=== PATIENT | male | born 1965 | race Caucasian/White ===

== ENCOUNTER → 2016-10-22 | Outpatient (REF) | payer OTHER ==
[~2016-10-22] MED LIST: ALPR0.5T3; ASPI81TA45; CORE25TA; GEMF600T; GLUC1000; INSUHUMDS SC; INSURSD SC; IRON65TA PO; LASI40TA; LISI10TA4; Levamir; MAGN64TASA PO; NEXI40GR; NITR0.4S; NOVOLOG100 MG/ML; PLAV75TA2; POTA10CA2; ROSU10TA; SAW160CA3 PO; STOO100C PO; TRIMETHOPRIM PO
[2016-10-22 14:17] LABS: BASO % 0.5 % (0.0-1.0); EOS # 0.2 K/mm3 (0.0-0.50); EOS % 2.6 % (0.0-3.0); LARGE UNSTAINED CELL # 0.1 K/mm3 (0.0-0.4); LARGE UNSTAINED CELL % 1.9 % (0.0-4.0); LYMPH # 0.9 K/mm3 (1.5-4.5); LYMPH % 16.6 % (24.0-44.0); MEAN CORPUSCULAR HEMOGLOBIN 28.5 pg (27.0-33.0); MEAN CORPUSCULAR HGB CONC 32.5 g/dl (32.0-36.5); MEAN CORPUSCULAR VOLUME 87.7 fl (80.0-96.0); MONO # 0.3 K/mm3 (0.0-0.8); MONO % 5.5 % (0.0-5.0); NEUTROPHILS # 4.1 K/mm3 (1.8-7.7); NEUTROPHILS % 72.8 % (36.0-66.0); PLATELET COUNT, AUTOMATED 149 k/mm3 (150-450); RED CELL DISTRIBUTION WIDTH 13.7 % (11.5-14.5); WHITE BLOOD COUNT 5.7 K/mm3 (4.0-10.0)
[2016-10-22 14:18] LABS: ALBUMIN 3.4 GM/DL (3.2-5.2); ALBUMIN/GLOBULIN RATIO 0.85 (1.00-1.93); BILIRUBIN,TOTAL 0.4 MG/DL (0.2-1.0); CALCIUM LEVEL 8.6 MG/DL (8.5-10.1); CREATININE FOR GFR 1.94 MG/DL (0.70-1.30); GLOMERULAR FILTRATION RATE 39.4 (>60); POTASSIUM SERUM 4.3 MEQ/L (3.5-5.1); TOTAL PROTEIN 7.4 GM/DL (6.4-8.2)
[2016-10-25 00:06] LABS: 5HIAA 24HR URINE 16.5 mg/24 hr (0.0-14.9); 5HIAA TOTAL URINE 8.8 mg/L (Undefined)
== END ==
LOC: M LABDRAW1 13:10
PROVIDERS: ATTEND Internal Medicine Medical Oncology
DX: D3A.00 Benign carcinoid tumor of unspecified site (principal)

== ENCOUNTER → 2016-10-22 | Outpatient (REF) | payer OTHER ==
[2016-10-22 14:16] LABS: CALCIUM LEVEL 8.6 MG/DL (8.5-10.1); CREATININE FOR GFR 1.9 MG/DL (0.70-1.30); GLOMERULAR FILTRATION RATE 40.3 (>60); POTASSIUM SERUM 4.3 MEQ/L (3.5-5.1)
== END ==
LOC: M LABDRAW1 13:13
PROVIDERS: ATTEND Nurse Practitioner Family
DX: D3A.00 Benign carcinoid tumor of unspecified site (principal)

== ENCOUNTER → 2016-12-03 | Outpatient (CLI) | payer OTHER ==
--- NOTE | 2016-12-03 15:08 | REP ---
REASON: Urinary tract infection. COMPARISON: None. FINDINGS: KUB shows the intestinal gas pattern to be nonspecific. The organ silhouettes insofar as delineated are unremarkable. There is no evidence of free intraperitoneal air. IMPRESSION: Nonspecific. Signed by Chester Gonzalez DO 12/03/2016 03:41 P
[2016-12-03 17:46] LABS: BASO # 0.1 K/mm3 (0.0-0.2); BASO % 0.5 % (0.0-1.0); EOS # 0.2 K/mm3 (0.0-0.50); EOS % 1.4 % (0.0-3.0); LARGE UNSTAINED CELL # 0.2 K/mm3 (0.0-0.4); LARGE UNSTAINED CELL % 1.5 % (0.0-4.0); LYMPH # 1.2 K/mm3 (1.5-4.5); LYMPH % 9.5 % (24.0-44.0); MEAN CORPUSCULAR HEMOGLOBIN 28.9 pg (27.0-33.0); MEAN CORPUSCULAR HGB CONC 32.6 g/dl (32.0-36.5); MEAN CORPUSCULAR VOLUME 88.5 fl (80.0-96.0); MONO # 0.8 K/mm3 (0.0-0.8); MONO % 5.7 % (0.0-5.0); NEUTROPHILS # 10.6 K/mm3 (1.8-7.7); NEUTROPHILS % 81.3 % (36.0-66.0); PLATELET COUNT, AUTOMATED 132 k/mm3 (150-450); RED CELL DISTRIBUTION WIDTH 14.3 % (11.5-14.5)
[2016-12-03 18:24] LABS: CALCIUM LEVEL 8.9 MG/DL (8.5-10.1); CREATININE FOR GFR 2.12 MG/DL (0.70-1.30); GLOMERULAR FILTRATION RATE 35.5 (>60)
== END ==
LOC: M WUC 14:40
PROVIDERS: ATTEND Nurse Practitioner Family
DX: I11.0 Hypertensive heart disease with heart failure (principal); N39.0 Urinary tract infection, site not specified

== ENCOUNTER → 2017-01-03 | Outpatient (REF) | payer OTHER ==
[2017-01-03 12:09] LABS: ALBUMIN/GLOBULIN RATIO 0.79 (1.00-1.93); BILIRUBIN,TOTAL 0.4 MG/DL (0.2-1.0); CALCIUM LEVEL 8.4 MG/DL (8.5-10.1); CREATININE FOR GFR 1.48 MG/DL (0.70-1.30); GLOMERULAR FILTRATION RATE 53.8 (>60); POTASSIUM SERUM 3.9 MEQ/L (3.5-5.1); TOTAL PROTEIN 6.8 GM/DL (6.4-8.2)
[2017-01-03 12:32] LABS: BASO % 0.5 % (0.0-1.0); EOS # 0.2 K/mm3 (0.0-0.50); EOS % 3.5 % (0.0-3.0); LARGE UNSTAINED CELL # 0.1 K/mm3 (0.0-0.4); LARGE UNSTAINED CELL % 1.3 % (0.0-4.0); LYMPH # 1.1 K/mm3 (1.5-4.5); LYMPH % 22.1 % (24.0-44.0); MEAN CORPUSCULAR HEMOGLOBIN 27.9 pg (27.0-33.0); MEAN CORPUSCULAR HGB CONC 31.6 g/dl (32.0-36.5); MEAN CORPUSCULAR VOLUME 88.3 fl (80.0-96.0); MONO # 0.3 K/mm3 (0.0-0.8); MONO % 7.1 % (0.0-5.0); NEUTROPHILS # 3.1 K/mm3 (1.8-7.7); NEUTROPHILS % 65.5 % (36.0-66.0); PLATELET COUNT, AUTOMATED 109 k/mm3 (150-450); RED CELL DISTRIBUTION WIDTH 14.7 % (11.5-14.5); WHITE BLOOD COUNT 4.8 K/mm3 (4.0-10.0)
== END ==
LOC: M LABDRAW1 11:33
PROVIDERS: ATTEND Internal Medicine Medical Oncology
DX: C7A.00 Malignant carcinoid tumor of unspecified site (principal)

== ENCOUNTER → 2017-01-07 | Outpatient (REF) | payer OTHER | LOC: M LABDRAW1 15:53 | PROVIDERS: ATTEND Nurse Practitioner Family | DX: M10.9 Gout, unspecified (principal) ==

== ENCOUNTER → 2017-03-01 | Outpatient (REF) | payer OTHER ==
[2017-03-01 16:07] LABS: CREATININE FOR GFR 1.57 MG/DL (0.70-1.30); GLOMERULAR FILTRATION RATE 50.2 (>60)
== END ==
LOC: M LABDRAW1 13:06
PROVIDERS: ATTEND Surgery
DX: R10.9 Unspecified abdominal pain (principal)

== ENCOUNTER → 2017-03-04 | Outpatient (CLI) | payer OTHER ==
[~2017-03-04] MED LIST changes: +ISOVUE-370 76% 100ML VIAL (Q9967) As Ordered ONE
--- NOTE | 2017-03-05 03:33 | REP ---
Clinical: Umbilical hernia. History of metastatic carcinoid. Technique: Axial contrast enhanced images from the lung bases to the pubic symphysis using 100 ml Isovue 370 intravenous contrast material with precontrast and delayed images of the abdomen as well as coronal and sagittal re-formations. Comparison: 04/15/2015. Findings: Lung bases demonstrate right middle lobe and lingular atelectasis. Visualized heart and pericardium appear normal. The liver demonstrates diffuse subtle hyperenhancing lesions measuring up to approximately 3 cm and consistent with a history of metastatic carcinoid tumor. Spleen, pancreas, bilateral adrenal glands and kidneys are normal. The patient is status post cholecystectomy. Scattered mesenteric lymph nodes are nonspecific and measure up to approximately 8 mm short axis diameter. The enteric system is without obstruction or acute inflammatory process. Partial anastomoses of small bowel in the mid pelvis is identified and without associated abnormality. Few sigmoid diverticula noted without acute diverticulitis. Pelvis demonstrates normal bladder and age appropriate prostate/seminal vesicles. No ascites. No free air. Osseous structures are intact without focal abnormality. Three fat containing ventral hernias are identified (A right periumbilical fat-containing hernia measures 7.5 cm maximal diameter with defect measuring 4.2 cm diameter; supraumbilical fat-containing hernia measures 5.8 cm maximal diameter with defect measuring 4.4 cm diameter; smaller fat containing ventral hernia measures 2.2 cm maximal diameter with associated similar defect.) Impression: 1. Three fat containing anterior abdominal wall ventral hernias as described above measuring between 2.2 cm and 7.5 cm maximal diameter. 2. Diffuse hepatic metastatic disease likely related to carcinoid tumor. 3. Minimal right middle lobe and lingular atelectasis. Signed by Janak Silva MD 03/05/2017 03:25 A
== END ==
LOC: M RAD 12:33
PROVIDERS: ATTEND Surgery
DX: R10.9 Unspecified abdominal pain (principal)

== ENCOUNTER → 2017-03-06 | Outpatient (REF) | payer OTHER ==
[~2017-03-06] MED LIST changes: -ISOVUE-370 76% 100ML VIAL (Q9967) As Ordered ONE
== END ==
LOC: M LABDRAW1 15:32
PROVIDERS: ATTEND Nurse Practitioner Family
DX: M10.9 Gout, unspecified (principal)

== ENCOUNTER → 2017-03-29 | Outpatient (CLI) | payer OTHER ==
[~2017-03-29] MED LIST changes: -SAW160CA3 PO; +SAW160CA4 PO
--- NOTE | 2017-03-29 16:49 | REP ---
Clinical: Neuroendocrine-related symptoms. Comparison: 01/18/2015 . Technique: PA and lateral. Findings: The mediastinum and cardiac silhouette are normal. The lung maxwell are clear and without acute consolidation, effusion, or pneumothorax. The skeletal structures are intact and normal. Impression: 1. No acute cardiopulmonary process. Signed by Janak Silva MD 03/29/2017 04:41 P
--- NOTE | 2017-03-29 22:25 | ECGEPIP ---
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
== END ==
LOC: M EKG 16:04
PROVIDERS: ATTEND Internal Medicine Medical Oncology
DX: C17.2 Malignant neoplasm of ileum (principal)

== ENCOUNTER → 2017-04-08 | Outpatient (REF) | payer BC ==
[2017-04-08 15:50] LABS: BASO % 0.5 % (0.0-1.0); EOS # 0.2 K/mm3 (0.0-0.50); EOS % 3.6 % (0.0-3.0); LARGE UNSTAINED CELL # 0.1 K/mm3 (0.0-0.4); LARGE UNSTAINED CELL % 2.5 % (0.0-4.0); LYMPH # 1.3 K/mm3 (1.5-4.5); MEAN CORPUSCULAR HEMOGLOBIN 27.7 pg (27.0-33.0); MEAN CORPUSCULAR HGB CONC 32.2 g/dl (32.0-36.5); MONO # 0.4 K/mm3 (0.0-0.8); MONO % 6.9 % (0.0-5.0); NEUTROPHILS # 3.2 K/mm3 (1.8-7.7); NEUTROPHILS % 63.5 % (36.0-66.0); PLATELET COUNT, AUTOMATED 145 k/mm3 (150-450); RED CELL DISTRIBUTION WIDTH 15.5 % (11.5-14.5); WHITE BLOOD COUNT 5.1 K/mm3 (4.0-10.0)
[2017-04-08 16:17] LABS: ALBUMIN 3.3 GM/DL (3.2-5.2); ALBUMIN/GLOBULIN RATIO 0.87 (1.00-1.93); BILIRUBIN,TOTAL 0.3 MG/DL (0.2-1.0); CALCIUM LEVEL 8.6 MG/DL (8.5-10.1); CREATININE FOR GFR 1.91 MG/DL (0.70-1.30); GLOMERULAR FILTRATION RATE 39.9 (>56); TOTAL PROTEIN 7.1 GM/DL (6.4-8.2)
[2017-04-12 14:14] LABS: 5HIAA 24HR URINE 26.7 mg/24 hr (0.0-14.9); 5HIAA TOTAL URINE 16.2 mg/L (Undefined)
== END ==
LOC: M LABDRAW1 13:10
PROVIDERS: ATTEND Internal Medicine Medical Oncology
DX: E34.0 Carcinoid syndrome (principal)

== ENCOUNTER → 2017-04-09 | Outpatient (CLI) | payer BC | LOC: M RAD 07:22 | PROVIDERS: ATTEND Internal Medicine Medical Oncology | DX: R10.11 Right upper quadrant pain (principal) ==

== ENCOUNTER → 2017-04-10 | Outpatient (REF) | payer BC, OTHER | LOC: M LAB REF 19:35 | PROVIDERS: ATTEND Nurse Practitioner Family | DX: R30.0 Dysuria (principal) ==

== ENCOUNTER → 2017-05-02 | Outpatient (REF) | payer BC ==
[2017-05-02 16:43] LABS: CALCIUM LEVEL 8.5 MG/DL (8.5-10.1); CREATININE FOR GFR 1.67 MG/DL (0.70-1.30); GLOMERULAR FILTRATION RATE 46.6 (>56); POTASSIUM SERUM 4.2 MEQ/L (3.5-5.1)
== END ==
LOC: M LABDRAW1 15:52
PROVIDERS: ATTEND Nurse Practitioner Family
DX: I11.0 Hypertensive heart disease with heart failure (principal); D50.0 Iron deficiency anemia secondary to blood loss (chronic)

== ENCOUNTER → 2017-05-27 | Outpatient (REF) | payer BC | LOC: M LAB REF 17:43 | PROVIDERS: ATTEND Internal Medicine Medical Oncology | DX: C7A.012 Malignant carcinoid tumor of the ileum (principal) ==

== ENCOUNTER → 2017-08-27 | Outpatient (CLI) | payer MEDICARE ==
--- NOTE | 2017-08-27 22:20 | REP ---
Clinical: Pain with recent trauma. Technique: AP, lateral, bilateral oblique views of the left foot toes. Findings: Mild age-related arthritic changes at the metacarpal phalangeal joints and interphalangeal joints appreciated. No obvious acute fracture or dislocation. No subcutaneous emphysema or radiodense foreign body. Impression: Mild arthritic degenerative changes. No acute fracture dislocation. Signed by Janak Silva MD 08/27/2017 10:12 P
== END ==
LOC: M RAD 19:09
PROVIDERS: ATTEND Physician Assistant
DX: M79.675 Pain in left toe(s) (principal)

== ENCOUNTER → 2017-08-30 | Outpatient (REF) | payer MEDICARE ==
[2017-09-04 10:17] LABS: 5HIAA TOTAL URINE 18.4 mg/L (Undefined)
== END ==
LOC: M LABDRAW1 13:07
PROVIDERS: ATTEND Internal Medicine Medical Oncology
DX: C7A.00 Malignant carcinoid tumor of unspecified site (principal)

== ENCOUNTER → 2017-09-18 | Outpatient (REF) | payer MEDICARE | LOC: M LAB REF 13:19 | PROVIDERS: ATTEND Internal Medicine Medical Oncology | DX: C7A.012 Malignant carcinoid tumor of the ileum (principal) ==

== ENCOUNTER → 2017-10-09 | Outpatient (CLI) | payer MEDICARE ==
[~2017-10-09] MED LIST changes: -ALPR0.5T3; -ASPI81TA45; -CORE25TA; +GASTROGRAFIN SOLUTION 30ML (Q9963) As Ordered; -GEMF600T; -GLUC1000; -INSUHUMDS SC; -INSURSD SC; -IRON65TA PO; +ISOVUE-370 76% 100ML VIAL (Q9967) As Ordered; -LASI40TA; -LISI10TA4; -Levamir; -MAGN64TASA PO; -NEXI40GR; -NITR0.4S; -NOVOLOG100 MG/ML; -PLAV75TA2; -POTA10CA2; -ROSU10TA; -SAW160CA4 PO; -STOO100C PO; -TRIMETHOPRIM PO
== END ==
LOC: M RAD 07:57
DX: C7A.1 Malignant poorly differentiated neuroendocrine tumors (principal); C78.7 Secondary malignant neoplasm of liver and intrahepatic bile duct; J84.10 Pulmonary fibrosis, unspecified
CPT/HCPCS: Q9963

== ENCOUNTER → 2017-10-15 | Outpatient (REF) | payer MEDICARE ==
[2017-10-22 15:55] LABS: SUMMARY SEE SEPARATE REPORT
== END ==
LOC: M LABDRAW1 10:56
DX: M47.897 Other spondylosis, lumbosacral region (principal)
CPT/HCPCS: 80307

== ENCOUNTER → 2018-01-21 | Outpatient (REF) | payer MEDICARE ==
[2018-01-25 00:07] LABS: 5HIAA 24HR URINE 28.9 mg/24 hr (0.0-14.9); 5HIAA TOTAL URINE 17.5 mg/L (Undefined)
== END ==
LOC: M LAB REF 14:55
DX: C7A.012 Malignant carcinoid tumor of the ileum (principal); C7A.1 Malignant poorly differentiated neuroendocrine tumors; C78.7 Secondary malignant neoplasm of liver and intrahepatic bile duct
CPT/HCPCS: 83497

== ENCOUNTER → 2018-03-05 | Outpatient (REF) | payer MEDICARE ==
[2018-03-11 00:10] LABS: CHROMOGRANIN A 46 nmol/L (0-5)
== END ==
LOC: M LAB REF 14:11
DX: C7A.012 Malignant carcinoid tumor of the ileum (principal); C7B.02 Secondary carcinoid tumors of liver
CPT/HCPCS: 86316

== ENCOUNTER → 2018-04-18 | Outpatient (REF) | payer MEDICARE ==
[2018-04-18 12:05] LABS: ANION GAP 10 MEQ/L (8-16); BLOOD UREA NITROGEN 27 MG/DL (7-18); CALCIUM LEVEL 8.5 MG/DL (8.5-10.1); CARBON DIOXIDE LEVEL 27 MEQ/L (21-32); CHLORIDE LEVEL 103 MEQ/L (98-107); CREATININE FOR GFR 1.52 MG/DL (0.70-1.30); GLOMERULAR FILTRATION RATE 51.7 (>56); GLUCOSE, FASTING 240 MG/DL (70-100); POTASSIUM SERUM 3.5 MEQ/L (3.5-5.1); SODIUM LEVEL 140 MEQ/L (136-145)
== END ==
LOC: M LABDRAW1 11:35
DX: I11.0 Hypertensive heart disease with heart failure (principal)
CPT/HCPCS: 80048

== ENCOUNTER → 2018-04-23 | Outpatient (REF) | payer MEDICARE ==
[2018-04-26 14:10] LABS: 5HIAA 24HR URINE 35.4 mg/24 hr (0.0-14.9); 5HIAA TOTAL URINE 23.6 mg/L (Undefined)
== END ==
LOC: M LAB REF 09:44
DX: C17.2 Malignant neoplasm of ileum (principal)
CPT/HCPCS: 83497

== ENCOUNTER → 2018-04-30 | Outpatient (CLI) | payer MEDICARE | LOC: M WUC 15:16 | DX: R05 Cough (principal); C7A.8 Other malignant neuroendocrine tumors | CPT/HCPCS: 71046 ==

== ENCOUNTER → 2018-05-22 | Outpatient (REF) | payer MEDICARE ==
[2018-05-25 15:56] LABS: 5HIAA 24HR URINE 29.4 mg/24 hr (0.0-14.9)
== END ==
LOC: M LAB REF 13:40
DX: C78.02 Secondary malignant neoplasm of left lung (principal); C7A.012 Malignant carcinoid tumor of the ileum

== ENCOUNTER → 2018-05-22 | Outpatient (CLI) | payer MEDICARE ==
[2018-05-22 19:41] LABS: ANION GAP 9 MEQ/L (8-16); BLOOD UREA NITROGEN 43 MG/DL (7-18); CALCIUM LEVEL 8.8 MG/DL (8.5-10.1); CARBON DIOXIDE LEVEL 28 MEQ/L (21-32); CHLORIDE LEVEL 106 MEQ/L (98-107); CREATININE FOR GFR 2.45 MG/DL (0.70-1.30); GLOMERULAR FILTRATION RATE 29.8 (>56); GLUCOSE, FASTING 119 MG/DL (70-100); POTASSIUM SERUM 4.2 MEQ/L (3.5-5.1); SODIUM LEVEL 143 MEQ/L (136-145)
== END ==
LOC: M WUC 17:15
DX: R60.9 Edema, unspecified (principal); C78.02 Secondary malignant neoplasm of left lung; C7A.012 Malignant carcinoid tumor of the ileum
CPT/HCPCS: 83497

== ENCOUNTER → 2018-07-04 | Outpatient (CLI) | payer MEDICARE | LOC: M RAD 14:38 | DX: K76.9 Liver disease, unspecified (principal); N28.1 Cyst of kidney, acquired; N17.9 Acute kidney failure, unspecified | CPT/HCPCS: 76775 ==

== ENCOUNTER → 2018-07-22 | Outpatient (CLI) | payer MEDICARE | LOC: M RAD 10:59 | DX: C7A.012 Malignant carcinoid tumor of the ileum (principal); C78.7 Secondary malignant neoplasm of liver and intrahepatic bile duct | CPT/HCPCS: Q9963 ==

== ENCOUNTER → 2018-08-04 | Outpatient (CLI) | payer MEDICARE | LOC: M RAD 13:04 | DX: M54.2 Cervicalgia (principal); R59.0 Localized enlarged lymph nodes | CPT/HCPCS: 76536 ==

== ENCOUNTER → 2018-08-19 | Outpatient (REF) | payer MEDICARE ==
[2018-08-21 10:10] LABS: 5HIAA 24HR URINE 45.8 mg/24 hr (0.0-14.9); 5HIAA TOTAL URINE 24.1 mg/L (Undefined)
== END ==
LOC: M LAB REF 12:48
DX: C7A.012 Malignant carcinoid tumor of the ileum (principal); C78.7 Secondary malignant neoplasm of liver and intrahepatic bile duct
CPT/HCPCS: 83497

== ENCOUNTER → 2018-08-26 | Outpatient (CLI) | payer MEDICARE ==
[~2018-08-26] MED LIST changes: -GASTROGRAFIN SOLUTION 30ML (Q9963) As Ordered; -ISOVUE-370 76% 100ML VIAL (Q9967) As Ordered; +LIDOCAINE 1% MDV 20ML VIAL As Ordered
== END ==
LOC: M RADPRO 11:43
DX: R59.0 Localized enlarged lymph nodes (principal); C17.9 Malignant neoplasm of small intestine, unspecified; K76.9 Liver disease, unspecified; I25.10 Atherosclerotic heart disease of native coronary artery without angina pectoris; I50.9 Heart failure, unspecified; I11.0 Hypertensive heart disease with heart failure; E11.9 Type 2 diabetes mellitus without complications; J31.0 Chronic rhinitis; R49.0 Dysphonia; E78.00 Pure hypercholesterolemia, unspecified; E66.01 Morbid (severe) obesity due to excess calories; Z88.8 Allergy status to other drugs, medicaments and biological substances; Z87.891 Personal history of nicotine dependence; Z68.41 Body mass index [BMI] 40.0-44.9, adult
CPT/HCPCS: 10022

== ENCOUNTER → 2018-10-09 | Outpatient (REF) | payer MEDICARE ==
[~2018-10-09] MED LIST changes: +ALPR0.5T3; +ALPR0.5T3 PO; +ASPI81TA45; +CARV25TA PO; +CORE25TA; +FERR325T3 PO; +GEMF600T; +GLUC1000; +INSUHUMDS SC; +INSURSD SC; +IRON65TA PO; +LASI40TA; -LIDOCAINE 1% MDV 20ML VIAL As Ordered; +LISI10TA4; +LOMO2.5T PO; +Levamir; +MAGN64TASA PO; +NEXI40GR; +NITR0.4S; +NORT50CA PO; +NOVOLOG100 MG/ML; +OMEP40CA2 PO; +ONDA8TAB7 PO; +OXYC1TAB15 PO; +PLAV75TA2; +POTA10CA2; +PROC10TA4 PO; +ROSU10TA; +SAW160CA4 PO; +STOO100C PO; +TRIMETHOPRIM PO; +ZYLO300T6 PO; +[UNRECOGNIZED DRUG - CODE] IM
[2018-10-12 14:07] LABS: 5HIAA 24HR URINE 42.5 mg/24 hr (0.0-14.9); 5HIAA TOTAL URINE 28.3 mg/L (Undefined)
== END ==
LOC: M LAB REF 11:57
PROVIDERS: ATTEND Internal Medicine Medical Oncology
DX: Z00.00 Encounter for general adult medical examination without abnormal findings (principal)

== ENCOUNTER → 2018-11-19 | Outpatient (REF) | payer MEDICARE ==
[2018-11-19 18:56] LABS: PERCENT SATURATION 14.5 % (19.7-50.0)
== END ==
LOC: M LAB REF 17:17
PROVIDERS: ATTEND Internal Medicine Nephrology
DX: D50.9 Iron deficiency anemia, unspecified (principal)

== ENCOUNTER → 2019-01-23 | Outpatient (CLI) | payer MEDICARE ==
[~2019-01-23] MED LIST changes: +CRES10TA32; +PERC7.5T11 PO; -ROSU10TA
--- NOTE | 2019-01-23 16:51 | REP ---
CT chest without contrast: History: Restaging. Carcinoid tumor. Comparison chest CT study October 09, 2017. 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 There is no evidence of pleural or pericardial effusion. No hilar or mediastinal mass or adenopathy is observed. There is coronary artery vascular calcification and/or stent material. There is an area of discoid atelectasis in the right middle lobe versus fibrosis. This is unchanged. No infiltrate is seen. A granulomatous calcification is seen in the right middle lobe. No significant pulmonary nodule is appreciated. There is evidence of bilateral gynecomastia again noted. No bony abnormality is seen. No axillary or supraclavicular adenopathy is seen. Impression: Chronic changes in the right middle lobe. No active disease. Electronically Signed by Jamel Tristan MD 01/23/2019 04:58 P
--- NOTE | 2019-01-23 17:25 | REP ---
CT abdomen and pelvis with oral but without IV contrast: History: Restaging carcinoid tumor. Comparison study: July 22, 2018. CT findings: The liver is somewhat prominent and has a coarse nodular texture and a nodular contour. Previous contrast-enhanced study have shown extensive enhancing hepatic mass lesions. Overall liver size and nodularity appears unchanged but the metastatic nodules are difficult to see without intravenous contrast. The gallbladder is surgically absent. No pancreatic mass lesion is seen. There are two or three tiny nodules adjacent to the spleen most likely accessory splenules. No retroperitoneal mass or adenopathy is observed. There is a small intrarenal calculus in the lower pole left kidney. No hydronephrosis. There is a ventral hernia transmitting abdominal fat and a portion of unobstructed transverse colon. Below this is another ventral hernia transmitting abdominal fat. There is a suture line in the small intestine in the right lower quadrant post resection. No bowel wall mass lesion is observed. Impression: Known hepatic metastatic disease difficult to evaluate without intravenous contrast. No other evidence to suggest progression. Electronically Signed by Jamel Tristan MD 01/24/2019 08:50 A
== END ==
LOC: M RAD 13:17
PROVIDERS: ATTEND Nurse Practitioner Family
DX: C7A.012 Malignant carcinoid tumor of the ileum (principal); C78.7 Secondary malignant neoplasm of liver and intrahepatic bile duct; R91.8 Other nonspecific abnormal finding of lung field

== ENCOUNTER → 2019-01-28 | Outpatient (REF) | payer MEDICARE ==
[2019-01-31 00:06] LABS: 5HIAA TOTAL URINE 17.3 mg/L (Undefined)
== END ==
LOC: M LAB REF 11:53
PROVIDERS: ATTEND Nurse Practitioner Family
DX: C7A.00 Malignant carcinoid tumor of unspecified site (principal)

== ENCOUNTER → 2019-02-20 | Outpatient (CLI) | payer MEDICARE ==
[~2019-02-20] MED LIST changes: +FURO80TA2 PO; +LACT10SO29 PO; +POTA1TAB14 PO; +[UNRECOGNIZED DRUG - CODE] IJ; +[UNRECOGNIZED DRUG - CODE] IM
--- NOTE | 2019-02-20 16:22 | REP ---
MAXILLOFACIAL CT WITHOUT CONTRAST: HISTORY: Chronic sinusitis. Mucosal thickening is present in the right maxillary sinus. There is complete opacification of the right maxillary sinus. Mild mucosal thickening is present in the ethmoid sinuses. Minimal mucosal thickening is present in the left maxillary sinus. The remaining sinuses are clear. Mucosal thickening involves the right ostiomeatal unit. The left ostiomeatal unit is patent. The middle and inferior nasal turbinates are partially paradoxical. There is minimal deviation of the nasal septum to the left superiorly and mild deviation to the right inferiorly. A spur is present arising from the right side of the nasal septum. The spur abuts the right inferior nasal turbinate. The cribriform plate, medial chawla of the orbits and optic canals are intact. The carotid canals form a segment of the posterolateral chawla of the sphenoid sinus. The sphenoid sinus septum inserts into the left internal carotid canal wall. IMPRESSION: Sinus mucosal thickening as described above. Electronically Signed by Panfilo Richey MD 02/20/2019 04:26 P
== END ==
LOC: M RAD 15:23
PROVIDERS: ATTEND Nurse Practitioner Family
DX: J32.9 Chronic sinusitis, unspecified (principal)

== ENCOUNTER 2019-02-25 14:27 | Emergency (ER) | payer MEDICARE ==
[~2019-02-25] VITALS: Ht 182.9 cm; Wt 144.1 kg
[~2019-02-25 14:27] MED LIST changes: -FURO80TA2 PO; -LACT10SO29 PO; -POTA1TAB14 PO
--- NOTE | 2019-02-25 15:20 | REP ---
CT Head without contrast HISTORY: Neurologic symptoms COMPARISON: None There is no intraparenchymal hemorrhage, acute infarct, mass or midline shift. The ventricular system is normal in appearance. There is no extra cerebral collection. There is no fracture. Mucosal thickening is present in the left ethmoid sinus. The fifth IMPRESSION: There is no intracranial lesion. Electronically Signed by Panfilo Richey MD 02/25/2019 03:11 P
[2019-02-25] MEDS ORDERED: NS 1,000 ML IV ONE (15:30)
[2019-02-25 15:55] LABS: VENOUS BASE EXCESS 6.1 (-2.0-2.0); VENOUS HCO3 32.8 MEQ/L (23.0-27.0); VENOUS O2 SATURATION 61.4 % (60.0-80.0); VENOUS PARTIAL PRESSURE CO2 58.8 mmHg (38.0-50.0); VENOUS PARTIAL PRESSURE O2 35.7 mmHg (30.0-50.0); VENOUS PH 7.364 UNITS (7.330-7.430); VENOUS STANDARD HCO3 29.3 MEQ/L; VENOUS TOTAL CO2 34.6 MEQ/L (24.0-28.0)
--- NOTE | 2019-02-25 16:01 | REP ---
CHEST, SINGLE VIEW: Single view of the chest is performed. There is again mild elevation of the right hemidiaphragm. There is mild bibasilar fibroatelectatic change. I suspect mild patchy atelectasis or infiltrate in the left retrocardiac region along the left hemidiaphragm. Heart does not appear to be significantly enlarged. Mediastinal silhouette is unchanged. IMPRESSION: Suspect mild left basilar atelectasis/infiltrate. Electronically Signed by Yfn Yoon MD 02/25/2019 04:52 P
[2019-02-25] MEDS ORDERED: FURO80TA2 PO (17:26)
[2019-02-25] MEDS ORDERED: FERR325T3 PO (17:26)
[2019-02-25 17:30] VITALS: BP 139/67
[2019-02-25] MEDS ORDERED: LACT10SO29 PO (17:32)
--- NOTE | 2019-02-25 18:24 | ED PDOC ---
Post-Departure Follow-Up bob flores faxed formal report of cxr for fu Hermila Valdes MD February 25, 2019 18:24
[2019-02-26] MEDS ORDERED: POTA1TAB14 PO (11:41)
[2019-03-02] MEDS ORDERED: LACT10SO29 PO (14:49)
== END 2019-02-25 17:55 | disposition home or self-care (01) ==
LOC: M ED 14:27
DX: E72.20 Disorder of urea cycle metabolism, unspecified (principal); C7A.012 Malignant carcinoid tumor of the ileum; N18.3 Chronic kidney disease, stage 3 (moderate); C78.7 Secondary malignant neoplasm of liver and intrahepatic bile duct; Z79.4 Long term (current) use of insulin; Z79.899 Other long term (current) drug therapy; Z88.8 Allergy status to other drugs, medicaments and biological substances

== ENCOUNTER → 2019-02-27 | Outpatient (CLI) | payer MEDICARE ==
[~2019-02-27] MED LIST changes: +FURO80TA2 PO; +LACT10SO29 PO; +POTA1TAB14 PO
--- NOTE | 2019-02-27 10:30 | REP ---
RIGHT UPPER QUADRANT SONOGRAPHY: HISTORY: History of hepatic cirrhosis with rising ammonia level. Comparison CT study January 23, 2019 and July 22, 2018 . The patient has a history of carcinoid tumor. SONOGRAPHIC FINDINGS: The gallbladder is surgically absent. Common bile duct is normal measuring 0.6 cm. Innumerable hypoechoic liver lesions are seen consistent with metastases throughout the left and right lobe of the liver. The largest nodule in the left lobe is 2.3 cm and the largest in the right measures 2.7 cm in diameter. The liver is not felt to be enlarged overall. The pattern is similar to that seen on contrast enhanced CT study from July 22, 2018. Limited views of the pancreas show no abnormality. There is no evidence of ascites or right renal abnormality. Right kidney measures 12.4 x 6.9 x 5.6 cm. IMPRESSION: Extensive hepatic metastatic disease. Similar to the pattern seen on July 22, 2018 CT study done with IV contrast. Electronically Signed by Jamel Tristan MD 02/27/2019 03:54 P
== END ==
LOC: M RAD 07:42
PROVIDERS: ATTEND Nurse Practitioner Family
DX: C78.7 Secondary malignant neoplasm of liver and intrahepatic bile duct (principal)

== ENCOUNTER → 2019-03-09 | Outpatient (CLI) | payer MEDICARE ==
[~2019-03-09] MED LIST changes: +AFIN5TAB PO
--- NOTE | 2019-03-11 11:03 | REP ---
OCTREOSCAN RADIONUCLIDE SCINTIGRAPHY WHOLE-BODY STUDY WITH SPECT: HISTORY: Restaging carcinoid tumor. TECHNIQUE: 6.6 mCi of Indium-111 Octreoscan is administered. 4-hour, 24-hour, and 48-hour whole body anterior and posterior images are acquired along with planar images of the abdomen and SPECT acquisition of the upper abdomen. COMPARISON STUDY: July 20, 2015. The most recent CT scan of the abdomen is from January 23, 2019 done without intravenous contrast. FINDINGS: There are extensive, numerous nodular foci of increased Octreotide uptake distributed throughout the liver. These are more numerous and somewhat more extensive than they were in June 2015 by scintigraphy. Previously, noted right mid abdominal focus is no longer apparent. This has been resected. No new focus of abdominal or mesenteric uptake is appreciated. No abnormal pelvic uptake is seen. No abnormal thoracic or head and neck uptake is appreciated. Expected the bowel and genitourinary uptake is seen. IMPRESSION: Fairly extensive metastatic pattern in the liver showing evidence of some progression since the July 20, 2015 prior scintigraphy. Electronically Signed by Jamel Tristan MD 03/11/2019 06:16 P
== END ==
LOC: M RAD 08:38
PROVIDERS: ATTEND Nurse Practitioner Family
DX: C78.7 Secondary malignant neoplasm of liver and intrahepatic bile duct (principal)
CPT/HCPCS: 78803; 78804; A9572

== ENCOUNTER → 2019-03-17 | Outpatient (REF) | payer MEDICARE ==
[2019-03-21 01:34] LABS: ANCA-ATYPICAL <1:20 titer (Neg:<1:20); ANTI-MITOCHONDRIAL ANTIBODY <20.0 Units (0.0-20.0); ANTINUCLEAR ANTIBODIES DIRECT Negative (Negative); CYTOPLASMIC NEUTROP AB ANCA-C <1:20 titer (Neg:<1:20); PERINUCLEAR AB ANCA-P <1:20 titer (Neg:<1:20)
== END ==
LOC: M LABDRAW1 13:46
PROVIDERS: ATTEND Internal Medicine Gastroenterology
DX: Z85.060 Personal history of malignant carcinoid tumor of small intestine (principal)

== ENCOUNTER → 2019-05-04 | Outpatient (CLI) | payer MEDICARE ==
[~2019-05-04] MED LIST changes: +ACET-683 PO; +AUGM500T34 PO; +MAGICMW SSP; +MEDR4PAK PO; +MM S100C PO; -STOO100C PO; +XIFA550T PO
--- NOTE | 2019-05-04 14:38 | REP ---
CHEST, TWO VIEWS: HISTORY: Neuroendocrine tumor. COMPARISON: 02/25/2019. Radiodensities are present overlying the cardiac silhouette seen in the lateral radiograph. This represents atelectasis or scar. The heart is normal in size. The pulmonary vasculature is normal in appearance. The bony structure is intact. IMPRESSION: There are linear densities overlying the cardiac silhouette seen in the lateral radiograph. This represents atelectasis or scar. Unreviewed
--- NOTE | 2019-05-05 08:21 | REP ---
REASON FOR EXAM: Hemoptysis, followup history of neuroendocrine tumor. There is an asymmetric density seen in the anterior retrosternal clear space and when compared to the latest prior lateral view of the chest on 04/30/2018, it represents a change. There is no other new finding. The lung maxwell are otherwise unchanged. The heart is not enlarged. The osseous structures are stable and intact. IMPRESSION: Likely minimal subsegmental atelectatic changes. Electronically Signed by Chester Gonzalez DO 05/04/2019 03:23 P
== END ==
LOC: M RAD 12:24
PROVIDERS: ATTEND Internal Medicine Medical Oncology
DX: D49.0 Neoplasm of unspecified behavior of digestive system (principal)

== ENCOUNTER → 2019-05-14 | Outpatient (CLI) | payer MEDICARE ==
[~2019-05-14] MED LIST changes: +OXYC-517 PO
--- NOTE | 2019-05-14 14:28 | REP ---
REASON: History of carcinoid tumor. The lack of intravenous contrast decreases the sensitivity of the exam. Comparison examination of 01/23/2019 and 10/09/2017 the only priors for comparison have been reviewed. There is no mediastinal or hilar adenopathy. There are no pleural or pericardial effusions. There is no significant change in the appearance of the imaged upper abdomen. There is a micronodular surface to the hepatic edge. Surgical clips are seen in the gallbladder fossa from previous cholecystectomy. There is no significant change in the appearance of the imaged osseous structures. Evaluation of the lung maxwell show an asymmetric density in the posterior and medial basal segments of the left lower lobe. This represents a change from prior exam and measures approximately 4.9 x 2.4 x 6.0 cm and represents a change from all priors. Other scattered bibasilar asymmetric densities are also present most of which are stable from prior exams. IMPRESSION: There is an asymmetric density in the left lung lower lobe as described above the etiology of which is uncertain. Scattered air bronchograms are seen in some of the asymmetric density. This seems to be followed up closely with clinical correlation. Since it has developed since 01/23/2019 subsegmental atelectatic change and/or infectious/inflammatory etiology is more likely than neoplastic change. Electronically Signed by Chester Gonzalez DO 05/14/2019 03:46 P
== END ==
LOC: M RAD 10:24
PROVIDERS: ATTEND Internal Medicine
DX: R05 Cough (principal)

== ENCOUNTER 2019-05-27 16:10 | Inpatient (IN) | payer MEDICARE ==
[~2019-05-27] VITALS: Ht 182.9 cm; Wt 131.4 kg
[~2019-05-27 16:10] MED LIST changes: -ATOR80TA59 PO; -CALC1CAP31 PO; -DEXI60CA2 PO; -FERR325T81 PO; -INSUR50VL SC; -MAGN400T2 PO; -NITR4TASL SL; -PROC5TA PO; -SPIR50TA4 PO; -TIZA4TAB4 PO
[2019-05-27] MEDS ORDERED: NITR4TASL SL (16:32)
[2019-05-27] MEDS ORDERED: ATOR80TA59 PO (16:32)
[2019-05-27] MEDS ORDERED: NS 1,000 ML IV SCH (16:36)
[2019-05-27 16:53] LABS: VENOUS BASE EXCESS 2.3 (-2.0-2.0); VENOUS HCO3 28.1 MEQ/L (23.0-27.0); VENOUS O2 SATURATION 62.2 % (60.0-80.0); VENOUS PARTIAL PRESSURE CO2 49.7 mmHg (38.0-50.0); VENOUS PARTIAL PRESSURE O2 36.6 mmHg (30.0-50.0); VENOUS STANDARD HCO3 25.9 MEQ/L; VENOUS TOTAL CO2 29.6 MEQ/L (24.0-28.0)
[2019-05-27 16:58] LABS: BASO % 0.5 % (0.0-1.0); EOS # 0.3 10^3/uL (0.0-0.50); EOS % 4.5 % (0.0-3.0); HEMATOCRIT 29.1 % (42.0-52.0); HEMOGLOBIN 9.1 g/dl (13.5-17.5); LYMPH # 1.7 10^3/uL (1.5-4.5); LYMPH % 27.7 % (24.0-44.0); MEAN CORPUSCULAR HEMOGLOBIN 28.4 pg (27.0-33.0); MEAN CORPUSCULAR HGB CONC 31.3 g/dl (32.0-36.5); MEAN CORPUSCULAR VOLUME 90.9 fl (80.0-96.0); MONO # 0.5 10^3/uL (0.0-0.8); MONO % 7.7 % (0.0-5.0); NEUTROPHILS # 3.7 10^3/uL (1.8-7.7); NEUTROPHILS % 59.3 % (36.0-66.0); WHITE BLOOD COUNT 6.2 10^3/uL (4.0-10.0)
--- NOTE | 2019-05-27 17:17 | REP ---
Chest x-ray: Two views. History: Dyspnea and cough. Comparison chest x-ray: May 04, 2019. Findings: The lungs are exposed at a somewhat lesser level of inspiration. There is mild plate-like atelectasis in the bases. The pleural angles are sharp. No focal infiltrate is appreciated. Heart is not felt to be enlarged. Pulmonary vasculature is not increased. No significant bony abnormality. Impression: Lesser inspiratory level. Mild bibasilar plate-like atelectasis. Otherwise no acute disease. Electronically Signed by Jamel Tristan MD 05/27/2019 07:23 P
[2019-05-27 17:29] LABS: ALBUMIN 2.4 GM/DL (3.2-5.2); ALT/SGPT 22 U/L (12-78); BILIRUBIN,DIRECT 0.3 MG/DL (0.0-0.2); BILIRUBIN,TOTAL 0.7 MG/DL (0.2-1.0); BLOOD UREA NITROGEN 27 MG/DL (7-18); CALCIUM LEVEL 8.6 MG/DL (8.5-10.1); CARBON DIOXIDE LEVEL 31 MEQ/L (21-32); CHLORIDE LEVEL 103 MEQ/L (98-107); CK-MB VALUE MASS 2.2 NG/ML (<3.6); CPK CREATINE PHOSPHOKINASE 69 U/L (39-308); GLOMERULAR FILTRATION RATE 48.6 (>56); GLUCOSE, FASTING 280 MG/DL (70-100); MB/CK RELATIVE INDEX 3.19 (< OR =4); POTASSIUM SERUM 3.3 MEQ/L (3.5-5.1); SODIUM LEVEL 140 MEQ/L (136-145); TOTAL PROTEIN 6.6 GM/DL (6.4-8.2); TROPONIN I < 0.02 NG/ML (< 0.10)
[2019-05-27 17:32] LABS: PLATELET COUNT, AUTOMATED 81 10^3/uL (150-450)
[2019-05-27] MEDS ORDERED: LOMO2.5T PO (19:12)
[2019-05-27] MEDS ORDERED: OXYC-517 PO (19:12)
[2019-05-27] MEDS ORDERED: INSUR50VL SC ×2 (19:12)
[2019-05-27] MEDS ORDERED: NITROGLYCERIN 0.4 MG SUBL TABLET SL PRN (19:15)
[2019-05-27] MEDS ORDERED: PROCHLORPERAZINE 5 MG TAB (S0183) PO PRN (19:15)
[2019-05-27] MEDS ORDERED: SPIR50TA4 PO ×2 (19:15)
[2019-05-27] MEDS ORDERED: ALPRAZolam 0.5 MG TAB PO PRN (19:15)
[2019-05-27] MEDS ORDERED: FERR325T81 PO (19:15)
[2019-05-27] MEDS ORDERED: TIZA4TAB4 PO (19:16)
[2019-05-27] MEDS ORDERED: INSUHUMDS SC (19:16)
[2019-05-27] MEDS ORDERED: CALC1CAP31 PO (19:20)
[2019-05-27] MEDS ORDERED: PROC5TA PO (19:20)
[2019-05-27] MEDS ORDERED: NORT50CA PO (19:20)
[2019-05-27] MEDS ORDERED: DEXI60CA2 PO (19:22)
[2019-05-27] MEDS ORDERED: ALPR0.5T3 PO (19:28)
--- NOTE | 2019-05-27 19:36 | HPEPDOC ---
General Date of Admission 05/27/19 Date of Service: May 27, 2019 Primary Care Physician: Isela Alfredo Attending Physician: [place] KEN DO Chief Complaint The patient is a 54-year-old male admitted with a reason for visit of Hypotension. Source: Patient, Family Exam Limitations: No limitations Timing/Duration: Day(s) Severity: Mild Associated Symptoms: Cough, Loss of appetite, Nausea, Hypotension History of Present Illness Patient is 55 years old male with past medical history of carcinoid tumor of the ileum, diabetes type 2, cirrhosis, liver metastasis presented hospital from [facility] with hypotension. Patient stated that he he had lightheadedness and dizziness in the morning. In cancer center when he had checkup he was found to have systolic blood pressure around 85. Patient stated that for past 3 days he didn't have appetite and he vomited 3 times yesterday. Also his stated that he had chronic cough for past 3-4 months, but recently his cough increased with sputum production. Patient had CAT scan of chest which was done on 05/14/19 and showed some inflammatory changes on the lung maxwell and bibasilar atelectasis. Today in the emergency room chest x-ray was showed mild bibasilar plate-like atelectasis. Also patient was found to have increased level of ammonia of 128, and lactic acid of 2.2. Patient denied any increase of abdominal girth, diarrhea. Patient received IV fluid resuscitation in the emergency and his blood pressure was stabilized Home Medications Scheduled Allopurinol (Zyloprim) 300 Mg Tab, 300 MG PO DAILY, (Reported) Atorvastatin Calcium (Atorvastatin Calcium) 80 Mg Tablet, 80 DAILYPRN, (Reporte d) Carvedilol (Carvedilol) 25 Mg Tab, 25 MG PO BID, (Reported) Furosemide (Furosemide) 80 Mg Tablet, 80 MG PO DAILY, (Reported) Insulin (Humulin R U-500) 500 Unit/1 Ml Vial, 20 UNITS SC QPM, (Reported) Insulin (Humulin R U-500) 500 Unit/1 Ml Vial, 40 UNITS SC QAM, (Reported) Octreotide Acetate,Mi-Spheres (Sandostatin [place]) 20 Mg Kit, 20 MG IM ONCE Octreotide Acetate,Mi-Spheres (Sandostatin [place]) 30 Mg Kit, 30 MG IM ONCE Omeprazole (Omeprazole) 40 Mg Cap, 40 MG PO DAILY, (Reported) Rifaximin (Xifaxan) 550 Mg Tablet, 550 MG PO BID, (Reported) Scheduled PRN Alprazolam (Alprazolam) 0.5 Mg Tab, 0.5 MG PO BID PRN for ANXIETY/AGITATION, (Reported) Diphenoxylate HCl/Atropine (Lomotil 2.5-0.025 mg Tablet) 1 Each Tablet, 2 TAB PO BID PRN for DIARRHEA, (Reported) Nitroglycerin (Nitrostat) 0.4 Mg Tab.subl, 0.4 MG SL NITRO PRN for CHEST PAIN, (Reported) Oxycodone HCl (Oxycodone HCl) 5 Mg Tablet, 5 MG PO Q4H PRN for PAIN, (Reported) Allergies Coded Allergies: paroxetine (Verified Adverse Reaction, Mild, DIARRHEA, 12/24/18) citalopram (Verified Adverse Reaction, Unknown, MIGRAINES, 12/24/18) Past Medical History Medical History CHF, type 2 diabetes, carcinoid tumor of the ileus, liver metastasis, liver cirrhosis Surgical History Cholecystectomy, appendectomy, resection of small intestine Family History Patient never met his parents. He was adopted by his grandma He doesn't know about help with his grandparents Social History * Smoker: Denies Alcohol: Denies Drugs: denies Psychosocial History: No pertinent psych hx A-FIB/CHADSVASC A-FIB History Current/History of A-Fib/PAF?: No Current PO Anticoag Therapy: No Review of Systems Constitutional: Reports: Fatigue Eyes: Denies: Pain, Vision change, Conjunctivae inflammation ENT: Denies: Head Aches, Dysphagia Skin: Denies: Rash, Lesions Pulmonary: Reports: Cough Cardiovascular: Denies: Chest Pain, Palpitations Gastrointestinal: Reports: Nausea; Denies: Vomiting, Diarrhea Genitourinary: Denies: Dysuria Hematologic: Denies: Bruising, Bleeding Excessively Endocrine: Denies: Polydipsia, Polyphagia Musculoskeletal: Denies: Neck Pain, Back Pain Neurological: Denies: Weakness, Numbness Psych: Reports: Mood Normal Physical Examination General Exam: Positive: Alert, Cooperative, No Acute Distress Eye Exam: Positive: PERRLA, Conjunctiva & lids normal, EOMI ENT Exam: Positive: Atraumatic, Mucous membr. moist/pink Neck Exam: Positive: Supple; Negative: JVD Chest Exam: Positive: Diminished Heart Exam: Positive: Rate Normal Abdomen Exam: Positive: Normal bowel sounds, Soft, Hepatospenomegaly; Negative: BS Hyperactive Extremity Exam: Negative: Clubbing, Cyanosis Skin Exam: Negative: Lesion, Pruritus Neuro Exam: Positive: Normal Gait, Normal Speech Psych Exam: Positive: Mental status NL; Negative: Anxiety Vital Signs Vital Signs Date Time Temp Pulse Resp B/P (MAP) Pulse Ox O2 Delivery O2 Flow Rate FiO2 05/27/19 18:15 127/74 (91) 05/27/19 18:10 72 96 05/27/19 16:21 16 Room Air Laboratory Data Labs 24H Laboratory Tests 2 05/27/19 16:41: Ammonia 128H 05/27/19 16:42: Immature Granulocyte % (Auto) 0.3, White Blood Count 6.2, Red Blood Count 3.20L, Hemoglobin 9.1L, Hematocrit 29.1L, Mean Corpuscular Volume 90.9, Mean Corpuscular Hemoglobin 28.4, Mean Corpuscular Hemoglobin Concent 31.3L, Red Cell Distribution Width 18.6H, Platelet Count 81L, Neutrophils (%) (Auto) 59.3, Lymphocytes (%) (Auto) 27.7, Monocytes (%) (Auto) 7.7H, Eosinophils (%) (Auto) 4.5H, Basophils (%) (Auto) 0.5, Neutrophils # (Auto) 3.7, Lymphocytes # (Auto) 1.7, Monocytes # (Auto) 0.5, Eosinophils # (Auto) 0.3, Basophils # (Auto) 0.0, Nucleated Red Blood Cells % (auto) 0.0, Immature Platelet Fraction 2.0, Blood Gas Bicarbonate Standard 25.9, Venous Blood pH 7.370, Venous Blood Partial Pressure CO2 49.7, Venous Blood Partial Pressure O2 36.6, Venous Blood Total Carbon Dioxide 29.6H, Venous Blood HCO3 28.1H, Venous Blood Oxygen Saturation 62.2, Venous Blood Base Excess 2.3H, Anion Gap 6L, Glomerular Filtration Rate 48.6L, Lactic Acid Level 2.2*H, Calcium Level 8.6, Aspartate Amino Transf (AST/SGOT) 24, Alanine Aminotransferase (ALT/SGPT) 22, Alkaline Phosphatase 161 H, Total Bilirubin 0.7, Direct Bilirubin 0.3H, Total Creatine Kinase 69, Creatine Kinase MB 2.2, Creatine Kinase MB Relative Index 3.19, Troponin I < 0.02, Total Protein 6.6, Albumin 2.4L, Albumin/Globulin Ratio 0.57L CBC/BMP Laboratory Tests 05/27/19 16:42 Red Blood Count 3.20 L, Mean Corpuscular Volume 90.9, Mean Corpuscular Hemoglobin 28.4, Mean Corpuscular Hemoglobin Concent 31.3 L, Red Cell Distribution Width 18.6 H, Neutrophils (%) (Auto) 59.3, Lymphocytes (%) (Auto) 27.7, Monocytes (%) (Auto) 7.7 H, Eosinophils (%) (Auto) 4.5 H, Basophils (%) (Auto) 0.5, Neutrophils # (Auto) 3.7, Lymphocytes # (Auto) 1.7, Monocytes # (Auto) 0.5, Eosinophils # (Auto) 0.3, Basophils # (Auto) 0.0 Microbiology Microbiology 05/27/19 Blood Culture, Received Pending 05/27/19 Blood Culture, Received Pending Assessment/Plan Patient is 54 years old male with past medical history of carcinoid tumor, liver cirrhosis with metastasis, CHF presented hospital after he developed hypotension in the cancer Center. Patient was found to have elevated levels of ammonia of 128 and lactic acid of 2.2. Problems (1) Pneumonia Problem Text: Community-acquired pneumonia Patient complains of increased cough and sputum production We'll repeat chest CAT scan Azithromycin IV, ceftriaxone IV Incentive spirometry Sputum culture, urine for Streptococcus and Legionella (2) Hyperammonemia Status: Acute Problem Text: We will restart lactulose LFT unremarkable Will repeat ammonia level tomorrow Ultrasound of the abdomen to rule out intraperitoneal fluid Appreciate/agree with the GI recommendation (3) Dehydration Status: Acute Problem Text: Secondary to poor oral intake and vomiting for past few days Continue IV expansion (4) CKD (chronic kidney disease), stage III Status: Acute Problem Text: We will avoid nephrotoxic agent (5) Metastatic malignant neuroendocrine tumor to liver Problem Text: Appreciate/agree with oncologist recommendation (6) Diabetes Problem Text: Continue home regimen Diabetes diet Plan / VTE VTE Prophylaxis Ordered?: Yes [place] KEN DO May 27, 2019 19:36
[2019-05-27] MEDS ORDERED: DEXTROSE 50% 50 ML SYRINGE IV PRN (20:00)
[2019-05-27] MEDS ORDERED: GLUCAGON FOR INJ 1 MG VIAL (J1610) SC PRN (20:00)
[2019-05-27] MEDS ORDERED: GLUCOSE 4 GM CHEW TABLET PO PRN (20:00)
[2019-05-27] MEDS ORDERED: NORTRIPTYLINE 25 MG CAP PO SCH (21:00)
[2019-05-27] MEDS ORDERED: HUMULIN R U-500 KWIKPEN 500UNITS/ML 3ML SYRINGE (J1815 PER 5UNITS) SC SCH ×2 (21:00)
[2019-05-27] MEDS ORDERED: SPIRONOLACTONE 50 MG TAB PO SCH (21:00)
[2019-05-27] MEDS ORDERED: ATORVASTATIN 20 MG TAB PO SCH (21:00)
[2019-05-27] MEDS ORDERED: ALPRAZolam 0.5 MG TAB PO SCH (21:00)
[2019-05-27 21:24] VITALS: BP 134/75
[2019-05-27] MEDS ORDERED: AZITHROMYCIN INJ 500 MG, VIAL MATE ADAPTER 1 EACH in D5W 250 ML IV SCH (22:00)
--- NOTE | 2019-05-27 22:15 | REPVR ---
EXAM: CT Chest Without Contrast EXAM DATE/TIME: 05/27/2019 8:42 PM CLINICAL HISTORY: 54 years old, male; Chest pain; Additional info: Pna TECHNIQUE: Imaging protocol: Computed tomography of the chest without contrast. 3D rendering: MIP reconstructed images were created and reviewed. Radiation optimization: All CT scans at this facility use at least one of these dose optimization techniques: automated exposure control; mA and/or kV adjustment per patient size (includes targeted exams where dose is matched to clinical indication); or iterative reconstruction. COMPARISON: CT Chest without contrast 05/14/2019 10:40 AM FINDINGS: Evaluation of solid organs, vessels and mediastinal structures is limited secondary to lack of IV contrast administration. Lungs: Again identified is an irregular/asymmetric density in the postero-medial aspect of the left lower lobe. When accounting for differences in positioning and technique, this appears grossly unchanged in size, measuring approximately 4.7 x 2.3 x 6.0 cm. Interspersed areas of bronchiectasis within the density also appear unchanged. A few small ill-defined groundglass density scattered throughout both lower lobes appear relatively stable as well. Pleural space: No pneumothorax. No pleural effusion. Heart: No cardiomegaly. No pericardial effusion. Aorta: No aortic aneurysm. Lymph nodes: No enlarged lymph nodes. Bones/joints: No displaced fractures or dislocations. Soft tissues: Unremarkable. Liver: Cirrhotic change of the liver with trace perihepatic fluid seen anteriorly. Gallbladder and bile ducts: Cholecystectomy clips identified. IMPRESSION: Asymmetric left lung base density appears grossly unchanged when compared to prior examination. Although this may be sequelae of a chronic infectious/inflammatory process, a neoplastic process cannot be entirely excluded. Please correlate with clinical history. The findings were verbally communicated via telephone conference with DR LEVINE at 10:10PM EDT on 05/27/2019. The findings were acknowledged and understood. Electronically signed by: Lonnie Najera On 05/27/2019 22:15:18 PM
[2019-05-27] MEDS ORDERED: cefTRIAXone SOD 1 GM in D5W MINI-BAG PLUS 50 ML IV SCH (23:00)
[2019-05-27] MEDS: LACTULOSE 20 GM/30 ML SYRUP UD PO SCH (23:18)
[2019-05-27] MEDS: FERROUS SULFATE 325MG TAB PO SCH (23:20)
[2019-05-27] MEDS: rifAXIMin 550 MG TAB (XIFAXAN) PO SCH (23:23)
[2019-05-27] MEDS: CARVedilol 12.5 MG TAB PO SCH (23:24)
[2019-05-27] MEDS: HEPARIN SOD (PORCINE) 5000 UNITS/ML VIAL SC SCH (23:47)
[2019-05-27] MEDS: PEN NEEDLE (USE WITH HUMULIN U-500 INSULIN PEN) XX SCH (23:56)
[2019-05-28 06:00] VITALS: BP 118/68
[2019-05-28 06:16] LABS: HEMATOCRIT 26.7 % (42.0-52.0); HEMOGLOBIN 8.6 g/dl (13.5-17.5); MEAN CORPUSCULAR HEMOGLOBIN 28.9 pg (27.0-33.0); MEAN CORPUSCULAR HGB CONC 32.2 g/dl (32.0-36.5); MEAN CORPUSCULAR VOLUME 89.6 fl (80.0-96.0); RED BLOOD COUNT 2.98 10^6/uL (4.30-6.10); WHITE BLOOD COUNT 6.1 10^3/uL (4.0-10.0)
[2019-05-28 06:26] LABS: PLATELET COUNT, AUTOMATED 74 10^3/uL (150-450)
[2019-05-28 06:39] LABS: BLOOD UREA NITROGEN 24 MG/DL (7-18); CALCIUM LEVEL 8.8 MG/DL (8.5-10.1); CARBON DIOXIDE LEVEL 30 MEQ/L (21-32); CHLORIDE LEVEL 105 MEQ/L (98-107); CREATININE FOR GFR 1.28 MG/DL (0.70-1.30); GLOMERULAR FILTRATION RATE > 60.0 (>56); GLUCOSE, FASTING 209 MG/DL (70-100); MAGNESIUM LEVEL 1.3 MG/DL (1.8-2.4); POTASSIUM SERUM 3.3 MEQ/L (3.5-5.1); SODIUM LEVEL 141 MEQ/L (136-145)
--- NOTE | 2019-05-28 06:55 | REPVR ---
EXAM: US Abdomen Complete EXAM DATE/TIME: 05/28/2019 6:29 AM CLINICAL HISTORY: 54 years old, male; Condition or disease; Cancer; Other: Unk; Additional info: Abdominal fluid, cirrhosis, liver mets TECHNIQUE: Imaging protocol: Real-time ultrasound of the abdomen with image documentation. COMPARISON: LIVER US 02/27/2019 7:[address] Chest without contrast 05/27/2019 8:41:23 PM FINDINGS: Liver: The surface of the liver is nodular, consistent with cirrhosis. Multiple low echogenicity masses are again seen within the liver, not as clearly visible as on the prior ultrasound. The largest liver lesions include a 1.6 x 1.6 x 1.8 cm lesion in the left lobe, a 2.2 x 2.2 x 2.3 cm lesion in the central right lobe, and a 1.7 x 2.3 x 2.3 cm lesion in the left lobe. It is difficult to determine if these have changed in size, as it is difficult to determine which lesions they correspond to the prior ultrasound. Gallbladder: The gallbladder has been resected. Common bile duct: Common bile duct is in size measuring 5 mm in diameter were visible. Pancreas: The pancreas appears normal with no ductal dilation but the visibility of the tail of the pancreas was limited by bowel gas. Right kidney: The right kidney is normal in size and echogenicity with no hydronephrosis or stones identified. The right kidney measures 11.8 cm in length. Left kidney: The left kidney is normal in size and echogenicity with no stones or hydronephrosis identified. The left kidney measures 12.4 cm in length. Spleen: The spleen is enlarged measuring 16.1 x 7.8 x 10.1 cm. Aorta: The abdominal aorta was obscured by bowel gas. Inferior vena cava: The inferior vena cava was obscured. Intraperitoneal space: No free fluid is identified. IMPRESSION: 1. Nodular surface of the liver and multiple hypoechoic lesions in the liver are again identified consistent with the given history of cirrhosis and liver metastases. 2. No ascites identified. 3. Mild splenomegaly. COMMENT: Consistent with the [employer]'s Incidental Findings Committee Report (J Am Hebert Radiol 2010): Unless the patient's specific circumstances suggest otherwise, any liver lesion 0.5 cm or less, any cystic kidney lesion less than 1.0 cm, and/or any adrenal lesion 1.0 cm or less not otherwise characterized in this report as possessing suspicious or indeterminate imaging features is/are highly likely to be benign and do not require follow-up imaging or biopsy. Electronically signed by: Belkis Worthington On 05/28/2019 06:54:45 AM
[2019-05-28] MEDS ORDERED: ALLOPURINOL 300 MG TAB PO SCH (09:00)
[2019-05-28] MEDS ORDERED: FUROSEMIDE 80 MG TAB PO SCH (09:00)
[2019-05-28] MEDS ORDERED: OMEPRAZOLE 20 MG CAP PO SCH (09:00)
[2019-05-28] MEDS: PEN NEEDLE (USE WITH HUMULIN U-500 INSULIN PEN) XX SCH (09:00)
[2019-05-28] MEDS: HEPARIN SOD (PORCINE) 5000 UNITS/ML VIAL SC SCH (09:00)
[2019-05-28] MEDS ORDERED: HUMULIN R U-500 KWIKPEN 500UNITS/ML 3ML SYRINGE (J1815 PER 5UNITS) SC SCH ×2 (09:00)
[2019-05-28] MEDS: rifAXIMin 550 MG TAB (XIFAXAN) PO SCH (09:06)
[2019-05-28] MEDS: FERROUS SULFATE 325MG TAB PO SCH (09:06)
[2019-05-28 09:07] VITALS: BP 122/70
[2019-05-28] MEDS: HumaLOG INSULIN (NovoLOG) PER UNIT SC SCH ×2 (09:07→12:23)
[2019-05-28] MEDS: CARVedilol 12.5 MG TAB PO SCH (09:07)
[2019-05-28] MEDS: LACTULOSE 20 GM/30 ML SYRUP UD PO SCH (09:07)
[2019-05-28] MEDS ORDERED: POTASSIUM CHLORIDE 10 MEQ SR TABLET PO ONE (10:15)
--- NOTE | 2019-05-28 10:16 | IPNPDOC ---
Subjective Date Seen The patient was seen on 05/28/19. Subjective Chief Complaint/HPI The patient is lying in bed with at bedside as I entered the room. He reports to be feeling well overall. He denies further light headedness. Cough persists Constitutional: Denies: Chills, Fever Pulmonary: Reports: Cough; Denies: Dyspnea, Pleuritic Chest Pain Cardiovascular: Denies: Chest Pain, Palpitations, Orthopnea, Edema Gastrointestinal: Denies: Nausea, Vomiting, Abdominal Pain Psych: Reports: Mood Normal Objective Physical Examination General Exam: Positive: Alert, Cooperative, No Acute Distress ENT Exam: Positive: Atraumatic, Mucous membr. moist/pink Neck Exam: Positive: Supple; Negative: JVD Chest Exam: Positive: Normal air movement, Diminished (left lower lobe); Negative: Rales, Rhonchi, Wheezing Heart Exam: Positive: Rate Normal Abdomen Exam: Positive: Normal bowel sounds, Soft, Hepatospenomegaly; Negative: BS Hyperactive Extremity Exam: Negative: Clubbing, Cyanosis Skin Exam: Negative: Lesion, Pruritus Neuro Exam: Positive: Normal Gait, Normal Speech Psych Exam: Positive: Mental status NL; Negative: Anxiety Assessment /Plan Problems (1) Pneumonia Problem Text: 05/28/19: Patient remains on Azithromycin and Ceftriaxone. CT scan performed yesterday. Procalcitonin pending Impression: Asymmetric left lung base density appears grossly unchanged when compared to prior examination. Although this may be sequelae of a chronic infectious/inflammatory process, a neoplastic process cannot be entirely excluded. Please correlate with clinical history. Community-acquired pneumonia Patient complains of increased cough and sputum production We'll repeat chest CAT scan Azithromycin IV, ceftriaxone IV Incentive spirometry Sputum culture, urine for Streptococcus and Legionella (2) Hyperammonemia Status: Acute Problem Text: 05/27/19: Lactulose was restarted. We will monitor ammonia levels. Mental status normal We will restart lactulose LFT unremarkable Will repeat ammonia level tomorrow Ultrasound of the abdomen to rule out intraperitoneal fluid Appreciate/agree with the GI recommendation (3) CKD (chronic kidney disease), stage III Status: Acute Problem Text: 05/27/19: Baseline Cre ~1.6-2, GFR ~ 40-50. Cre 1.28, GFR >60 (this may be dilutional) We will avoid nephrotoxic agent (4) Dehydration Status: Resolved Problem Text: 05/27/19: Patient received a liter of IVF in ER. He has no further vomiting and has good oral intake this morning. Secondary to poor oral intake and vomiting for past few days Continue IV expansion (5) Metastatic malignant neuroendocrine tumor to liver Status: Chronic Problem Text: 05/27/19: Per Patient and , patient is scheduled for consult with oncology in [place] on 06/02/19 for a second opinion Appreciate/agree with oncologist recommendation (6) Diabetes Status: Chronic Problem Text: 05/27/19: Remains on insulin sliding scale Continue home regimen Diabetes diet Plan/VTE VTE Prophylaxis Ordered?: Yes VS, I&O, 24H, Fishbone Vital Signs/I&O Vital Signs Date Time Temp Pulse Resp B/P (MAP) Pulse Ox O2 Delivery O2 Flow Rate FiO2 05/28/19 09:07 77 122/70 05/28/19 06:00 97.4 17 93 05/27/19 16:21 Room Air I&O- Last 24 Hours up to 6 AM 05/28/19 06:00 Intake Total 695 ml Output Total 650 ml Balance 45 ml Laboratory Data 24H LABS Laboratory Tests 2 05/27/19 16:41: Ammonia 128H 05/27/19 16:42: Immature Granulocyte % (Auto) 0.3, White Blood Count 6.2, Red Blood Count 3.20L, Hemoglobin 9.1L, Hematocrit 29.1L, Mean Corpuscular Volume 90.9, Mean Corpu scular Hemoglobin 28.4, Mean Corpuscular Hemoglobin Concent 31.3L, Red Cell Distribution Width 18.6H, Platelet Count 81L, Neutrophils (%) (Auto) 59.3, Lymphocytes (%) (Auto) 27.7, Monocytes (%) (Auto) 7.7H, Eosinophils (%) (Auto) 4.5H, Basophils (%) (Auto) 0.5, Neutrophils # (Auto) 3.7, Lymphocytes # (Auto) 1.7, Monocytes # (Auto) 0.5, Eosinophils # (Auto) 0.3, Basophils # (Auto) 0.0, Nucleated Red Blood Cells % (auto) 0.0, Immature Platelet Fraction 2.0, Blood Gas Bicarbonate Standard 25.9, Venous Blood pH 7.370, Venous Blood Partial Pressure CO2 49.7, Venous Blood Partial Pressure O2 36.6, Venous Blood Total Carbon Dioxide 29.6H, Venous Blood HCO3 28.1H, Venous Blood Oxygen Saturation 62.2, Venous Blood Base Excess 2.3H, Anion Gap 6L, Glomerular Filtration Rate 48.6L, Lactic Acid Level 2.2*H, Calcium Level 8.6, Aspartate Amino Transf (AST/SGOT) 24, Alanine Aminotransferase (ALT/SGPT) 22, Alkaline Phosphatase 161H, Total Bilirubin 0.7, Direct Bilirubin 0.3H, Total Creatine Kinase 69, Creatine Kinase MB 2.2, Creatine Kinase MB Relative Index 3.19, Troponin I < 0.02, Total Protein 6.6, Albumin 2.4L, Albumin/Globulin Ratio 0.57L 05/27/19 21:25: Bedside Glucose (Misc Panel) 131H 05/27/19 21:45: Lactic Acid Followup at 4 Hours 2.2*H 05/28/19 03:27: Bedside Glucose (Misc Panel) 211H 05/28/19 05:56: Nucleated Red Blood Cells % (auto) 0.0, Anion Gap 6L, Glomerular Filtration Rate > 60.0, Blood Urea Nitrogen 24H, Creatinine 1.28, Sodium Level 141, Potassium Level 3.3L, Chloride Level 105, Carbon Dioxide Level 30, Calcium Level 8.8, Magnesium Level 1.3L CBC/BMP Laboratory Tests 05/27/19 16:42 Red Blood Count 3.20 L, Mean Corpuscular Volume 90.9, Mean Corpuscular Hemoglobin 28.4, Mean Corpuscular Hemoglobin Concent 31.3 L, Red Cell Distribution Width 18.6 H, Neutrophils (%) (Auto) 59.3, Lymphocytes (%) (Auto) 27.7, Monocytes (%) (Auto) 7.7 H, Eosinophils (%) (Auto) 4.5 H, Basophils (%) (Auto) 0.5, Neutrophils # (Auto) 3.7, Lymphocytes # (Auto) 1.7, Monocytes # (Auto) 0.5, Eosinophils # (Auto) 0.3, Basophils # (Auto) 0.0 05/28/19 05:56 Red Blood Count 2.98 L, Mean Corpuscular Volume 89.6, Mean Corpuscular Hemoglobin 28.9, Mean Corpuscular Hemoglobin Concent 32.2, Red Cell Distribution Width 18.7 H, Calcium Level 8.8 Microbiology Microbiology 05/27/19 Blood Culture, Received Pending 05/27/19 Blood Culture, Received Pending [employer] SUPPORT ENGINEER May 28, 2019 10:16
[2019-05-28] MEDS ORDERED: MAGNESIUM OXIDE 400 MG TAB (MAG-OX) PO ONE (10:30)
--- NOTE | 2019-05-28 13:37 | DSES ---
DATE OF ADMISSION: 05/27/2019 DATE OF DISCHARGE: PRINCIPAL DIAGNOSIS: Metastatic neuroendocrine tumor. SECONDARY DIAGNOSES: Cirrhosis. Type 2 diabetes. 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 HISTORY: Layton Gilliam was admitted on 05/27. He had a cough that has been going on for several months, three or four months. He was admitted for presumptive pneumonia, although there was no infiltrate on the chest x-ray. CT was ordered after admission. HOSPITAL COURSE: The patient was admitted for presumed pneumonia. He has no white count, sputum production or fever, and on exam he does not have any symptoms to suggest pneumonia. CT scan of the chest showed asymmetric left lung base density unchanged compared to previous studies, consistent with neoplastic process. I reviewed this with radiology. This think this is tumor and not infection. I saw the patient today. He feels he is at his baseline. He does not feel any different than he has over the last several months. He is eager to go home because he has an appointment for a second opinion on his metastatic neuroendocrine tumor in [place] and he does not want to miss that appointment. Therefore, I am discharging him today. I do not think he has pneumonia and I think that the CT scan on admission just shows his malignancy. He will followup with his primary care physician in one week. He already has an appointment to see his oncologist at [facility] as previously scheduled. He has an appointment on 06/02 in [place] for a second opinion on his malignancy and his treatment. His medicines on discharge will be unchanged from what he was taking prior to admission. - allopurinol 300 mg daily - Xanax 0.5 mg twice a day as needed, 0.5 mg at bedtime - atorvastatin 80 mg at bedtime - calcitriol 0.5 mcg daily - carvedilol 25 mg twice a day - Dexilant 60 mg daily - Lomotil two tablets twice a day as needed - 650 mg twice a day - furosemide 80 mg daily - ferrous sulfate 325 mg twice a day - sliding scale insulin - Humulin R U500 40 units in the morning and 20 units at bedtime - Nitrostat as needed - nortriptyline 100 mg at bedtime - Sandostatin 20 mcg as needed per oncology - omeprazole 40 mg daily - oxycodone 5 mg every 4 hours as needed - prochlorperazine 5 mg every 6 hours as needed - rifaximin 550 mg twice a day - spironolactone 50 mg daily - tizanidine 4 mg three times a day as needed He does not act encephalopathic. His ammonia is elevated. On exam today he had no ascites nor any asterixis. I think he can just resume his rifaximin. I am however recommending that he stops his Lomotil as it defeats the purpose for trying to decrease transit time in the colon to have him on Lomotil. Nursing staff is getting a copy of his imaging studies put on a CD for him to bring to [place] with him.
--- NOTE | 2019-05-28 14:48 | MEDONC ---
MEDICAL ONCOLOGY/HEMATOLOGY NOTE: DATE OF SERVICE: 05/27/2019 REASON FOR VISIT: Short followup visit in a patient with advanced endocrine tumor metastatic to the liver. INTERVAL HISTORY/REVIEW OF SYSTEMS: This is a 54-year-old male with the above diagnosis who was not able to tolerated the Afinitor with development of cough for which he was placed on steroids. The patient returns to the clinica after being on vacation for review of CT chest. The patient reported cough and fatigue falling several times at home and feeling clammy. Patient had been feeling dizzy, lightheaded. The patient reported also development of lower GI bleeding with noticing bright red blood in the stools. The remainder of review of system is unchanged from April. Allergies, past medical, surgical, social history and medication reconciled and reviewed and updated in the EMR. PHYSICAL EXAMINATION: Awake, alert, oriented not in acute distress. Vital Signs: Temperature 96.6, pulse 74, respiration 18, blood pressure 88/61, pulse ox 96. Lungs: Left decreased air entry noted. Crackles are noted in the left lower lung. Cardiac: S1, S2 regular rhythm and rate. No added sounds. Abdomen: Distended. Abdominal hernia is noted in the middle of the abdomen. Ascites is noted. Extremities: No cyanosis, clubbing. Trace edema is noted. Lymphatic: Unremarkable. Neuro: Nonfocal. LAB DATA: White blood cell count 15.4, hemoglobin 10.9. Chemistry: Creatinine 2.1. Serotonin 502. IMAGING STUDIES: CT chest: Asymmetric density in the left lower lobe of the lung. Suspicious for infectious process. ASSESSMENT/PLAN: This is an 54-year-old with advanced neuroendocrine tumor, metastatic to the liver with new development of GI bleeding and noticed hypertension with significant falls. The patient was advised about the following. 1. Transfer to the ER for stat evaluation and admission to the hospital for hypertension, suspect pneumonia and GI bleed. 2. Patient reports intravenous antibiotic to be coordinated by the hospitalist. 3. Upper and lower GI endoscopies to be coordinated by consults during admission. 4. Followup with [facility] with specialist for management of his neuroendocrine tumor especially in the setting with the patient not tolerating Afinitor. I spent 40 minutes during this encounter with more than 50% of the time counseling the patient about the above plan of care. The patient was understanding and agreed to proceed as above. Electronically Signed by Adair Boudreaux MD 05/31/2019 11:27 A DD: Adair Boudreaux MD 05/27/2019 03:48 P DT: pavel 05/28/2019 02:27 P CC:
--- NOTE | 2019-05-28 20:40 | ECGEPIP ---
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
[2019-06-08] MEDS ORDERED: OXYC-517 PO ×3 (12:55→15:47)
== END 2019-05-28 14:18 | disposition home or self-care (01) | DRG 181 ==
LOC: M ED 16:10 → M ED INP 19:00 → M MSPAV 21:35
PROVIDERS: ADMIT Internal Medicine; ATTEND Family Medicine
DX: C78.02 Secondary malignant neoplasm of left lung (principal); E72.20 Disorder of urea cycle metabolism, unspecified; C78.7 Secondary malignant neoplasm of liver and intrahepatic bile duct; C17.2 Malignant neoplasm of ileum; E86.0 Dehydration; N18.3 Chronic kidney disease, stage 3 (moderate); E11.22 Type 2 diabetes mellitus with diabetic chronic kidney disease; K74.60 Unspecified cirrhosis of liver; Z79.4 Long term (current) use of insulin; Z79.899 Other long term (current) drug therapy; Z88.8 Allergy status to other drugs, medicaments and biological substances; Z90.49 Acquired absence of other specified parts of digestive tract

== ENCOUNTER → 2019-05-27 | Outpatient (REF) | payer MEDICARE ==
[~2019-05-27] MED LIST changes: +ATOR80TA59 PO; +CALC1CAP31 PO; +DEXI60CA2 PO; +FERR325T81 PO; +INSUR50VL SC; +MAGN400T2 PO; +NITR4TASL SL; +PROC5TA PO; +SPIR50TA4 PO; +TIZA4TAB4 PO
[2019-06-04 10:09] LABS: 5HIAA 24HR URINE 12.5 mg/24 hr (0.0-14.9); 5HIAA TOTAL URINE 17.3 mg/L (Undefined)
== END ==
LOC: M LAB REF 14:31
PROVIDERS: ATTEND Internal Medicine
DX: C78.7 Secondary malignant neoplasm of liver and intrahepatic bile duct (principal)

== ENCOUNTER 2019-06-03 15:20 | Emergency (ER) | payer MEDICAID, MEDICARE ==
[~2019-06-03] VITALS: Ht 182.9 cm; Wt 133.6 kg
[~2019-06-03 15:20] MED LIST changes: +ATOR80TA59 PO; +CALC1CAP31 PO; +DEXI60CA2 PO; +FERR325T81 PO; +INSUR50VL SC; +NITR4TASL SL; -OMEP40CA2 PO; +OMEP40CA97 PO; +ONDA8TAB10 PO; -ONDA8TAB7 PO; +PROC5TA PO; +SPIR50TA4 PO; +TIZA4TAB4 PO
[2019-06-03 16:24] LABS: BASO % 0.5 % (0.0-1.0); EOS # 0.3 10^3/uL (0.0-0.5); EOS % 4.1 % (0.0-3.0); HEMATOCRIT 27.2 % (42.0-52.0); HEMOGLOBIN 8.7 g/dl (13.5-17.5); LYMPH # 2.2 10^3/uL (1.5-5.0); LYMPH % 28.8 % (24.0-44.0); MEAN CORPUSCULAR HEMOGLOBIN 29.1 pg (27.0-33.0); MONO # 0.8 10^3/uL (0.0-0.8); MONO % 10.8 % (0.0-5.0); NEUTROPHILS # 4.1 10^3/uL (1.5-8.5); NEUTROPHILS % 55.4 % (36.0-66.0); PLATELET COUNT, AUTOMATED 122 10^3/uL (150-450); RED BLOOD COUNT 2.99 10^6/uL (4.30-6.10); WHITE BLOOD COUNT 7.5 10^3/uL (4.0-10.0)
[2019-06-03 16:35] LABS: INR 1.2; PROTHROMBIN TIME 14.9 SECONDS (11.8-14.0)
[2019-06-03 16:36] LABS: PARTIAL THROMBOPLASTIN TIME 35.3 SECONDS (25.0-38.4)
[2019-06-03 16:59] LABS: ALBUMIN 2.4 GM/DL (3.2-5.2); ALT/SGPT 20 U/L (12-78); BILIRUBIN,DIRECT 0.3 MG/DL (0.0-0.2); BILIRUBIN,TOTAL 0.8 MG/DL (0.2-1.0); BLOOD UREA NITROGEN 25 MG/DL (7-18); CALCIUM LEVEL 8.9 MG/DL (8.5-10.1); CARBON DIOXIDE LEVEL 30 MEQ/L (21-32); CHLORIDE LEVEL 106 MEQ/L (98-107); CK-MB VALUE MASS 1.6 NG/ML (<3.6); CPK CREATINE PHOSPHOKINASE 70 U/L (39-308); CREATININE FOR GFR 1.52 MG/DL (0.70-1.30); FREE T4 1.22 NG/DL (0.76-1.46); GLOMERULAR FILTRATION RATE 51.5 (>56); GLUCOSE, FASTING 111 MG/DL (70-100); MB/CK RELATIVE INDEX 2.29 (< OR =4); POTASSIUM SERUM 3.7 MEQ/L (3.5-5.1); SODIUM LEVEL 142 MEQ/L (136-145); TOTAL PROTEIN 6.4 GM/DL (6.4-8.2); TROPONIN I < 0.02 NG/ML (< 0.10)
[2019-06-03] MEDS ORDERED: DEXTROSE 50% 50 ML SYRINGE IV STA ×2 (17:24→18:52)
[2019-06-03] MEDS ORDERED: DEXTROSE 50% 50 ML SYRINGE As Ordered ONE (17:25)
[2019-06-03] MEDS ORDERED: NS 1,000 ML IV ONE (17:30)
[2019-06-03 18:43] VITALS: BP 141/73
[2019-06-03] MEDS ORDERED: PANTOPRAZOLE 40MG INJ (PROTONIX) (C9113) IV ONE (19:00)
--- NOTE | 2019-06-03 19:00 | REP ---
HISTORY: Hypotensive crisis. Evaluate for CHF. The technique utilized in obtaining the radiograph has magnified the cardiac silhouette and accentuated the interstitial markings. COMPARISON: 05/27/2019 This portable examination shows evidence suggestive of central pulmonary venous engorgement. Early cephalization cannot be ruled out. Subtle linear densities appear to be in the periphery of the lung base regions on this limited portable exam. The heart is not enlarged and the osseous structures are stable and intact. IMPRESSION: Findings suggestive of early CHF on this portable exam. PA and lateral views of the chest are recommended. Electronically Signed by Chester Gonzalez DO 06/03/2019 07:48 P
[2019-06-03] MEDS ORDERED: D5W/0.9% SODIUM CHLORIDE 1,000 ML IV SCH (20:15)
[2019-06-03] MEDS ORDERED: DEXTROSE 50% 50 ML SYRINGE IV PRN (20:15)
[2019-06-03] MEDS ORDERED: GLUCOSE 4 GM CHEW TABLET PO PRN (20:15)
--- NOTE | 2019-06-03 20:18 | HPEPDOC ---
[facility] Medical History & Physical Date of Admission Jun 03, 2019 Date of Service: Jun 03, 2019 Primary Care Physician: Isela Alfredo Attending Physician: SB CORONADO MD History and Physical TIME OF SERVICE: 910 PM CHIEF COMPLAINT: sent from oncologist's office HISTORY OF PRESENT ILLNESS: This is a 54-year-old male who was sent from his oncologist office for evaluation of hypotension. Per discussion with Dr. Murdock his systolic blood pressure was in the 70s. Orthostatics were positive in the ED. He was also noted to have hypoglycemia with a glucose as low as 41. He received 2 amps of D50. When I went to evaluate the patient he declined in patient admission citing that he has stage 4 cancer and doesn't think there is much we can do for him. He was informed that we could treat his hypoglycemia and hypotension and that he needs atleast 24H of monitoring as the hypoglycemia may reoccur and could cause him to . He verbalized understanding that risk that he could tonight and elected to go home. He signed the AMA form which was witnessed by his RN in the ED. DISPOSITION: left AMA Vital Signs Vital Signs Date Time Temp Pulse Resp B/P (MAP) Pulse Ox O2 Delivery O2 Flow Rate FiO2 06/03/19 19:15 71 94 06/03/19 18:43 141/73 (95) 06/03/19 17:30 20 Room Air 06/03/19 17:22 98.1 Laboratory Data Labs 24H Laboratory Tests 2 06/03/19 15:56: Immature Granulocyte % (Auto) 0.4, White Blood Count 7.5, Red Blood Count 2.99L, Hemoglobin 8.7L, Hematocrit 27.2L, Mean Corpuscular Volume 91.0, Mean Corpuscular Hemoglobin 29.1, Mean Corpuscular Hemoglobin Concent 32.0, Red Cell Distribution Width 19.4H, Platelet Count 122L, Neutrophils (%) (Auto) 55.4, Lymphocytes (%) (Auto) 28.8, Monocytes (%) (Auto) 10.8H, Eosinophils (%) (Auto) 4.1H, Basophils (%) (Auto) 0.5, Neutrophils # (Auto) 4.1, Lymphocytes # (Auto) 2.2, Monocytes # (Auto) 0.8, Eosinophils # (Auto) 0.3, Basophils # (Auto) 0.0, Nucleated Red Blood Cells % (auto) 0.0, Prothrombin Time 14.9H, Prothromb Time International Ratio 1.20, Activated Partial Thromboplast Time 35.3, Anion Gap 6L, Glomerular Filtration Rate 51.5L, Calcium Level 8.9, Aspartate Amino Transf (AST/SGOT) 27, Alanine Aminotransferase (ALT/SGPT) 20, Alkaline Phosphatase 160H, Total Bilirubin 0.8, Direct Bilirubin 0.3H, Total Creatine Kinase 70, Creatine Kinase MB 1.6, Creatine Kinase MB Relative Index 2.29, Troponin I < 0.02, Total Protein 6.4, Albumin 2.4L, Albumin/Globulin Ratio 0.60L, Thyroid Stimulating Hormone (TSH) 0.670, Free Thyroxine 1.22 06/03/19 17:19: Bedside Glucose (Misc Panel) 41L 06/03/19 17:52: Bedside Glucose (Misc Panel) 100 06/03/19 17:56: Urine Color STRAW, Urine Appearance CLEAR, Urine pH 6.0, Urine Specific [place] 1.005, Urine Protein NEGATIVE, Urine Glucose (UA) NEGATIVE, Urine Ketones NEGATIVE, Urine Blood NEGATIVE, Urine Nitrite NEGATIVE, Urine Bilirubin NEGATIVE, Urine Urobilinogen 0.2, Urine Leukocyte Esterase NEGATIVE, Urine WBC (Auto) 0, Urine RBC (Auto) 2, Urine Hyaline Casts (Auto) 0, Urine Bacteria (Auto ) NEGATIVE, Urine Squamous Epithelial Cells 0, Urine Sperm (Auto) 06/03/19 18:16: Lactic Acid Level 1.8 06/03/19 18:51: Bedside Glucose (Misc Panel) 50L 06/03/19 19:38: Bedside Glucose (Misc Panel) 99 CBC/BMP Laboratory Tests 06/03/19 15:56 Red Blood Count 2.99 L, Mean Corpuscular Volume 91.0, Mean Corpuscular Hemoglobi n 29.1, Mean Corpuscular Hemoglobin Concent 32.0, Red Cell Distribution Width 19.4 H, Neutrophils (%) (Auto) 55.4, Lymphocytes (%) (Auto) 28.8, Monocytes (%) (Auto) 10.8 H, Eosinophils (%) (Auto) 4.1 H, Basophils (%) (Auto) 0.5, Neutrophils # (Auto) 4.1, Lymphocytes # (Auto) 2.2, Monocytes # (Auto) 0.8, Eosinophils # (Auto) 0.3, Basophils # (Auto) 0.0 Microbiology Microbiology 06/03/19 Blood Culture, Received Pending 06/03/19 Blood Culture, Received Pending Home Medications Scheduled Allopurinol (Zyloprim) 300 Mg Tab, 300 MG PO DAILY Atorvastatin Calcium (Atorvastatin Calcium) 80 Mg Tablet, 80 MG PO QHS Calcitriol (Calcitriol) 0.25 Mcg Capsule, 0.5 MCG PO DAILY Carvedilol (Carvedilol) 25 Mg Tab, 25 MG PO BID Dexlansoprazole (Dexilant) 60 Mg Cap.bp, 60 MG PO DAILY Ferrous Sulfate (Iron) 325 Mg Tablet, 325 MG PO BID MORNING AND DINNER Furosemide (Furosemide) 80 Mg Tablet, 80 MG PO DAILY Insulin (Humulin R U-500) 500 Unit/1 Ml Vial, 20 UNITS SC QHS Insulin (Humulin R U-500) 500 Unit/1 Ml Vial, 40 UNITS SC QAM Insulin Human Lispro (Humalog) 100 Unit/1 Ml Vial, 1 DOSE SC AC PER SLIDING SCALE Nortriptyline HCl (Nortriptyline HCl) 50 Mg Capsule, 100 MG PO QHS Octreotide Acetate,Mi-Spheres (Sandostatin [place]) 20 Mg Kit, 20 MG IM ONCE Octreotide Acetate,Mi-Spheres (Sandostatin [place]) 30 Mg Kit, 30 MG IM ONCE Omeprazole (Omeprazole) 40 Mg Cap, 40 MG PO DAILY Rifaximin (Xifaxan) 550 Mg Tablet, 550 MG PO BID MORNING AND DINNER Spironolactone (Spironolactone) 50 Mg Tablet, 50 MG PO QPM TAKES AT DINNERTIME Scheduled PRN Alprazolam (Alprazolam) 0.5 Mg Tab, 0.5 MG PO BID PRN for ANXIETY/AGITATION Nitroglycerin (Nitrostat) 0.4 Mg Tab.subl, 0.4 MG SL NITRO PRN for CHEST PAIN Oxycodone HCl (Oxycodone HCl) 5 Mg Tablet, 5 MG PO Q4H PRN for PAIN Prochlorperazine (Prochlorperazine Maleate) 5 Mg Tablet, 5 MG PO Q6H PRN for NAUSEA Tizanidine HCl (Tizanidine HCl) 4 Mg Tablet, 4 MG PO TID PRN for SPASMS Allergies Coded Allergies: paroxetine (Verified Adverse Reaction, Mild, DIARRHEA, 12/24/18) citalopram (Verified Adverse Reaction, Unknown, MIGRAINES, 12/24/18) A-FIB/CHADSVASC A-FIB History Current/History of A-Fib/PAF?: No Current PO Anticoag Therapy: SB Steel MD Jun 03, 2019 20:18
--- NOTE | 2019-06-03 20:42 | ECGEPIP ---
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
[2019-06-03 20:57] LABS: HEMOGLOBIN A1c 8.1 %
[2019-06-03] MEDS ORDERED: ENOXAPARIN 40 MG/0.4 ML SYRINGE (J1650) SC SCH (21:00)
[2019-06-03 21:29] LABS: CREATININE,RANDOM URINE 36.1 MG/DL
[2019-06-08] MEDS ORDERED: OXYC-517 PO ×3 (12:55→15:47)
[2019-06-10] MEDS ORDERED: TOUJ300I2 SC (10:37)
[2019-06-16] MEDS ORDERED: [UNRECOGNIZED DRUG - CODE] IJ (15:58)
[2019-07-08] MEDS ORDERED: OXYC-517 PO ×2 (11:20→17:31)
[2019-07-08] MEDS ORDERED: POTA10CA32 PO (11:31)
[2019-07-28] MEDS ORDERED: OXYC-517 PO (09:12)
[2019-09-09] MEDS ORDERED: POTA10808 PO (15:24)
[2019-09-09] MEDS ORDERED: FURO80TA2 PO (15:24)
[2019-09-11] MEDS ORDERED: LOPE1CAP5 PO (14:47)
[2019-10-02] MEDS ORDERED: LOMO2.5T PO (10:55)
== END 2019-06-03 21:30 | disposition left against medical advice (07) ==
LOC: M ED 15:20 → M ED INP 20:08 → UNDOADMIN 20:08 → UNDODISIN 21:22
DX: E11.649 Type 2 diabetes mellitus with hypoglycemia without coma (principal); I95.1 Orthostatic hypotension; D64.9 Anemia, unspecified; K92.2 Gastrointestinal hemorrhage, unspecified; C78.7 Secondary malignant neoplasm of liver and intrahepatic bile duct; K74.60 Unspecified cirrhosis of liver; I50.9 Heart failure, unspecified; Z88.8 Allergy status to other drugs, medicaments and biological substances; Z79.4 Long term (current) use of insulin; Z79.899 Other long term (current) drug therapy
CPT/HCPCS: 36415; 71045; 80048; 80076; 81001; 82550; 82553; 82570; 83036; 83605; 84300; 84439; 84443; 84484; 84540; 85025; 85610; 85730; 87040; 93005; 93041; 94760; 96372; 96374; 96375; 96376; 99285; C9113; J1650

== ENCOUNTER 2019-06-05 17:34 | Observation (INO) | payer MEDICARE, MEDICAID ==
[~2019-06-05] VITALS: Ht 182.9 cm; Wt 134.4 kg
[~2019-06-05 17:34] MED LIST changes: -MAGN400T2 PO; -OMEP40CA2 PO; +OMEP40CA97 PO; +ONDA8TAB10 PO; -ONDA8TAB7 PO
[2019-06-05 19:16] LABS: BASO % 0.6 % (0.0-1.0); EOS # 0.3 10^3/uL (0.0-0.5); EOS % 5.3 % (0.0-3.0); HEMOGLOBIN 8.2 g/dl (13.5-17.5); LYMPH # 1.9 10^3/uL (1.5-5.0); LYMPH % 29.2 % (24.0-44.0); MEAN CORPUSCULAR HEMOGLOBIN 28.8 pg (27.0-33.0); MEAN CORPUSCULAR HGB CONC 31.5 g/dl (32.0-36.5); MEAN CORPUSCULAR VOLUME 91.2 fl (80.0-96.0); MONO # 0.9 10^3/uL (0.0-0.8); MONO % 13.6 % (0.0-5.0); NEUTROPHILS # 3.2 10^3/uL (1.5-8.5); NEUTROPHILS % 50.5 % (36.0-66.0); PLATELET COUNT, AUTOMATED 124 10^3/uL (150-450); RED BLOOD COUNT 2.85 10^6/uL (4.30-6.10); WHITE BLOOD COUNT 6.4 10^3/uL (4.0-10.0)
[2019-06-05 19:23] LABS: ALBUMIN 2.3 GM/DL (3.2-5.2); BILIRUBIN,TOTAL 0.5 MG/DL (0.2-1.0); CALCIUM LEVEL 8.8 MG/DL (8.5-10.1); CREATININE FOR GFR 1.95 MG/DL (0.70-1.30); GLOMERULAR FILTRATION RATE 38.7 (>56); POTASSIUM SERUM 3.7 MEQ/L (3.5-5.1); TOTAL PROTEIN 6.2 GM/DL (6.4-8.2)
[2019-06-05 19:25] LABS: MAGNESIUM LEVEL 1.4 MG/DL (1.8-2.4)
[2019-06-05 19:58] LABS: OSMOLALITY URINE 338 MOSM/KG (500-800)
[2019-06-05 20:08] LABS: APPEARANCE, URINE CLEAR (CLEAR); BACTERIA, URINE AUTO NEGATIVE (NEGATIVE); BILIRUBIN, URINE AUTO NEGATIVE (NEGATIVE); BLOOD, URINE BLOOD NEGATIVE (NEGATIVE); COLOR, URINE YELLOW (YELLOW); GLUCOSE, URINE (UA) AUTO NEGATIVE (NEGATIVE); KETONE, URINE AUTO NEGATIVE (NEGATIVE); LEUKOCYTE ESTERASE, URINE AUTO NEGATIVE (NEGATIVE); NITRITE, URINE AUTO NEGATIVE (NEGATIVE); PROTEIN, URINE AUTO NEGATIVE (NEGATIVE); RBC, URINE AUTO 3 /HPF (0-3); SPECIFIC GRAVITY URINE AUTO 1.015 (1.002-1.035); SQUAMOUS EPITHELIAL CELL UR AU 1 /HPF (0-6); UROBILINOGEN, URINE AUTO 0.2 mg/dL (0.0-2.0); WBC, URINE AUTO 1 /HPF (0-3)
[2019-06-05 20:22] LABS: POTASSIUM RANDOM URINE 30.6 MEQ/L
[2019-06-05] MEDS ORDERED: HumaLOG INSULIN (NovoLOG) PER UNIT SC SCH (21:00)
[2019-06-05] MEDS ORDERED: NORTRIPTYLINE 25 MG CAP PO SCH (21:00)
[2019-06-05] MEDS ORDERED: SPIRONOLACTONE 25 MG TAB PO SCH (21:00)
[2019-06-05] MEDS ORDERED: ACETAMINOPHEN TAB 650MG DOSE (2X325MG) PO PRN (23:00)
[2019-06-05] MEDS: NS 1,000 ML IV SCH (23:19)
[2019-06-06] MEDS ORDERED: GLUCAGON FOR INJ 1 MG VIAL (J1610) SC PRN
[2019-06-06] MEDS ORDERED: DEXTROSE 50% 50 ML SYRINGE IV PRN
[2019-06-06] MEDS ORDERED: GLUCOSE 4 GM CHEW TABLET PO PRN
[2019-06-06] MEDS ORDERED: oxyCODONE 5MG TAB PO PRN (00:45)
[2019-06-06] MEDS ORDERED: PROCHLORPERAZINE 5 MG TAB (S0183) PO PRN (00:45)
[2019-06-06] MEDS ORDERED: tiZANidine 4 MG TAB PO PRN (00:45)
--- NOTE | 2019-06-06 00:53 | IPNPDOC ---
Text Note Date of Service GME ATTESTATION I personally examined the patient on 06/05/19 at 1050PM and discussed the case with Clasu Ackerman. , a 54 yr old M w a PMH of metastatic Neuroendocrine tumor, anemia of chronic disease and CKD had no specific complaints today. Per d/w the ED provider, his PCP sent him for evaluation of abnormal labs; his Cr increased from 1.[address] Springer was consulted and asked for the patient to be admitted. We will admit him for management of KRISTIE and complete a work up to determine the underlying cause of the CKD. Rest per 's H&P VS,Rachide, I+O VS, Ynes, I+O Laboratory Tests 06/05/19 18:42 Red Blood Count 2.85 L, Mean Corpuscular Volume 91.2, Mean Corpuscular Hemoglobin 28.8, Mean Corpuscular Hemoglobin Concent 31.5 L, Red Cell Distribution Width 19.4 H, Neutrophils (%) (Auto) 50.5, Lymphocytes (%) (Auto) 29.2, Monocytes (%) (Auto) 13.6 H, Eosinophils (%) (Auto) 5.3 H, Basophils (%) (Auto) 0.6, Neutrophils # (Auto) 3.2, Lymphocytes # (Auto) 1.9, Monocytes # (Auto) 0.9 H, Eosinophils # (Auto) 0.3, Basophils # (Auto) 0.0, Calcium Level 8.8, Aspartate Amino Transf (AST/SGOT) 28, Alanine Aminotransferase (ALT/SGPT) 21, Alkaline Phosphatase 157 H, Total Bilirubin 0.5, Total Protein 6.2 L, Albumin 2.3 L Vital Signs Date Time Temp Pulse Resp B/P (MAP) Pulse Ox O2 Delivery O2 Flow Rate FiO2 06/05/19 23:15 83 20 137/68 (91) 98 Room Air 06/05/19 17:34 98.8 SB CORONADO MD Jun 06, 2019 00:53
[2019-06-06 01:00] VITALS: BP 136/66
--- NOTE | 2019-06-06 01:18 | HPEPDOC ---
[facility] Medical History & Physical Date of Admission Jun 06, 2019 Date of Service: Jun 06, 2019 Primary Care Physician: ANGELO DOMINGUEZ MD Attending Physician: SB CORONADO MD History and Physical PRIMARY CARE PROVIDER: Dr. Dominguez ATTENDING: Dr. Sb Coronado CHIEF COMPLAINT: Abnormal lab values HISTORY OF PRESENT ILLNESS: Patient is a 54 year old male who presented to the [facility] ED at the urging of Dr. Dominguez his PCP. He was at Dr. Dominguez's office earlier in the day and had labwork drawn up that showed a hgb of 7.7 down from a 9/ Hgb of 8.7 and an elevated Cr of 1.98 up from baseline of ~1.5 with decreased GFR. After his labwork was reviewed she sent the patient to the emerge ncy department. While there, Dr. Oliveros spoke with his metal fabrication supervisor, Dr. Springer who recommended admission for further work up of his decreased kidney function. He presently admits to no difficulties with urination, blood in the stool burning on urination. He does admit to a cough productive of green sputum and intermittent blood in his stool with occasional spotting. He is to see Dr. Mccormick next week for discussion of scheduling a colonoscopy. PAST MEDICAL HISTORY: Carcinoid tumor of the ileum Type 2 diabetes Liver cirrhosis Liver metastasis CKD stage III Hyperlipidemia Hypertension Coronary artery disease status post 6 stents Gout GERD Chronic Systolic CHF PAST SURGICAL HISTORY: Heart catheterization (09/2002, 02/2007, 03/2008, 05/2008, 07/2008) Small bowel tumor removal, appendix, and lymph node resection (2014) SOCIAL HISTORY: Quit smoking>10 years ago, No EtOH, or illicit drug use. FAMILY HISTORY: ALLERGIES: Please see below. REVIEW OF SYSTEMS: GENERAL: Denies fevers, chills, recent unexpected weight change, night sweats, hemoptysis HEENT: Denies headache, vision changes, hearing loss, sore throat. Admits to lightheadedness, dizziness. CARDIOVASCULAR: Denies chest pain, palpitations, orthopnea RESPIRATORY: Denies shortness of breath, wheezing. Admits to cough productive of green sputum. GASTROINTESTINAL: denies nausea, vomiting, abdominal pain, constipation, diarrhea. Admits to blood in stool. GENITOURINARY: Denies dysuria,urinary urgency, hematuria. MUSCULOSKELETAL: Denies muscle/joint pain, weakness, stiffness NEUROLOGICAL: Denies any numbness/tingling, focal weakness, or syncope HOME MEDICATIONS: Please see below. PHYSICAL EXAMINATION: Vitals: (see below) General: No acute distress, laying comfortably in bed. HEENT: Normocephalic, atraumatic. EOMI. No scleral icterus. Moist mucous membranes. No pharyngeal erythema or uvular deviation. Neck: No JVD, lymphadenopathy, or thyromegaly. Cardiac: RRR, Normal S1 and S2, No murmurs, gallops, rubs. Pulm: Clear to auscultation b/l. Symmetric thorax. No wheezing, crackles, rhonchi Abd: Bowel Sounds present. Abdomen is soft, non-tender, non-distended. No guard ing, rebound tenderness, or rigidity. No hepatosplenomegaly. No masses or eccymosis. Ext: 2+ pitting edema in bilateral LE. Neuro: Alert and oriented. No focal neuro deficits. LABORATORY DATA: See below. IMAGING: Renal U/S Impression: Unremarkable ultrasound of the kidneys and bladder MICROBIOLOGY: Please see below. ASSESSMENT/PLAN: #. Acute on chronic kidney disease. -Performing workup for KRISTIE as well as CKD including renal ultrasound, urine protein, urinalysis, vitamin D, PTH, phosphorus, ferritin, iron studies, and SPEP. HepB/C in 2015 was negative. Current CrCl is 83 per cockcroft-gault formula. -Consulted nephrology (Dr. Springer) to see patient in the morning. Their input is appreciated. -Running gentle IV fluids, as patient does exhibit signs of fluid overload, decreasing spironolactone and lasix so he is still able to diurese adequately. #.Normocytic Anemia -Could potentially be due to anemia of chronic disease from his metastatic cancer or his CKD hence the iron studies and ferritin. Also could be due to his history of GI bleed, we'll continue to monitor hemoglobin. #. Type 2 diabetes - Sliding scale insulin -Cut home humilin U-500 dose in half for AM and PM dose, can adjust up as needed based on fingersticks. #. Metastic liver disease -Saw Faye Garcia his oncologist on 06/05, he is not currently due for any cancer directed therapies at this time (Sandostatin, Afinitor, Octreotide) #.Hypertension - Continue home meds. #.CAD s/p 5 stents -Continue carvedilol with holding parameters. #.Hyperlipidemia -Continue home meds. #. GERD -Continue with PPI #.Gout -Continue with allopurinol -DVT prophy:heparin indicated as patient's VTE risk based on padau risk score is 12, TEDs. Vital Signs Vital Signs Date Time Temp Pulse Resp B/P (MAP) Pulse Ox O2 Delivery O2 Flow Rate FiO2 06/05/19 23:15 83 20 137/68 (91) 98 Room Air 06/05/19 17:34 98.8 Laboratory Data Labs 24H Laboratory Tests 2 06/05/19 18:42: Immature Granulocyte % (Auto) 0.8, White Blood Count 6.4, Red Blood Count 2.85L, Hemoglobin 8.2L, Hematocrit 26.0L, Mean Corpuscular Volume 91.2, Mean Corpuscular Hemoglobin 28.8, Mean Corpuscular Hemoglobin Concent 31.5L, Red Cell Distribution Width 19.4H, Platelet Count 124L, Neutrophils (%) (Auto) 50.5, Lymphocytes (%) (Auto) 29.2, Monocytes (%) (Auto) 13.6H, Eosinophils (%) (Auto) 5.3H, Basophils (%) (Auto) 0.6, Neutrophils # (Auto) 3.2, Lymphocytes # (Auto) 1.9, Monocytes # (Auto) 0.9H, Eosinophils # (Auto) 0.3, Basophils # (Auto) 0.0, Nucleated Red Blood Cells % (auto) 0.0, Anion Gap 7L, Glomerular Filtration Rate 38.7L, Osmolality 300H, Blood Urea Nitrogen 28H, Creatinine 1.95H, Sodium Level 143, Potassium Level 3.7, Chloride Level 107, Carbon Dioxide Level 29, Calcium Level 8.8, Aspartate Amino Transf (AST/SGOT) 28, Alanine Aminotransferase (ALT/SGPT) 21, Alkaline Phosphatase 157H, Total Bilirubin 0.5, Total Protein 6.2L, Albumin 2.3L, Magnesium Level 1.4L, Albumin/Globulin Ratio 0.59L 06/05/19 19:29: Urine Appearance CLEAR, Urine Color YELLOW, Urine pH 5.0, Urine Specific [place] 1.015, Urine Protein NEGATIVE, Urine Glucose (UA) NEGATIVE, Urine Ketones NEGATIVE, Urine Urobilinogen 0.2, Urine Bilirubin NEGATIVE, Urine Leukocyte Esterase NEGATIVE, Urine Blood NEGATIVE, Urine Nitrite NEGATIVE, Urine WBC (Auto) 1, Urine RBC (Auto) 3, Urine Hyaline Casts (Auto) 31, Urine Bacteria (Auto) NEGATIVE, Urine Squamous Epithelial Cells 1, Urine Sperm (Auto) , Urine Random Osmolality 338L, Urine Random Creatinine 197.0, Urine Random Potassium 30.6 06/06/19 00:27: Bedside Glucose (Misc Panel) 245H CBC/BMP Laboratory Tests 06/05/19 18:42 Red Blood Count 2.85 L, Mean Corpuscular Volume 91.2, Mean Corpuscular Hemoglobin 28.8, Mean Corpuscular Hemoglobin Concent 31.5 L, Red Cell Distribution Width 19.4 H, Neutrophils (%) (Auto) 50.5, Lymphocytes (%) (Auto) 29.2, Monocytes (%) (Auto) 13.6 H, Eosinophils (%) (Auto) 5.3 H, Basophils (%) (Auto) 0.6, Neutrophils # (Auto) 3.2, Lymphocytes # (Auto) 1.9, Monocytes # (Auto) 0.9 H, Eosinophils # (Auto) 0.3, Basophils # (Auto) 0.0, Calcium Level 8.8, Aspartate Amino Transf (AST/SGOT) 28, Alanine Aminotransferase (ALT/SGPT) 21, Alkaline Phosphatase 157 H, Total Bilirubin 0.5, Total Protein 6.2 L, Albumin 2.3 L Home Medications Scheduled Allopurinol (Zyloprim) 300 Mg Tab, 300 MG PO DAILY Atorvastatin Calcium (Atorvastatin Calcium) 80 Mg Tablet, 80 MG PO QHS Calcitriol (Calcitriol) 0.25 Mcg Capsule, 0.5 MCG PO DAILY Carvedilol (Carvedilol) 25 Mg Tab, 25 MG PO BID Dexlansoprazole (Dexilant) 60 Mg bp, 60 MG PO DAILY Ferrous Sulfate (Iron) 325 Mg Tablet, 325 MG PO BID MORNING AND DINNER Insulin (Humulin R U-500) 500 Unit/1 Ml Vial, 10 UNITS SC QHS Insulin (Humulin R U-500) 500 Unit/1 Ml Vial, 40 UNITS SC QAM Insulin Human Lispro (Humalog) 100 Unit/1 Ml Vial, 1 DOSE SC AC PER SLIDING SCALE Lactulose (Lactulose) 10 Gm/15 Ml Solution, 15 ML PO BID for constipation Magnesium Oxide (Magnesium Oxide) 400 Mg Tablet, 1 TAB PO BID for constipation Nortriptyline HCl (Nortriptyline HCl) 50 Mg Capsule, 100 MG PO QHS Octreotide Acetate,Mi-Spheres (Sandostatin [place]) 20 Mg Kit, 20 MG IM ONCE Octreotide Acetate,Mi-Spheres (Sandostatin [place]) 30 Mg Kit, 30 MG IM ONCE Omeprazole (Omeprazole) 40 Mg Cap, 40 MG PO DAILY Rifaximin (Xifaxan) 550 Mg Tablet, 550 MG PO BID MORNING AND DINNER Spironolactone (Spironolactone) 50 Mg Tablet, 50 MG PO QPM TAKES AT DINNERTIME Scheduled PRN Alprazolam (Alprazolam) 0.5 Mg Tab, 0.5 MG PO BID PRN for ANXIETY/AGITATION Nitroglycerin (Nitrostat) 0.4 Mg Tab.subl, 0.4 MG SL NITRO PRN for CHEST PAIN Oxycodone HCl (Oxycodone HCl) 5 Mg Tablet, 5 MG PO Q4H PRN for PAIN Prochlorperazine (Prochlorperazine Maleate) 5 Mg Tablet, 5 MG PO Q6H PRN for NAUSEA Tizanidine HCl (Tizanidine HCl) 4 Mg Tablet, 4 MG PO TID PRN for SPASMS Allergies Coded Allergies: paroxetine (Verified Adverse Reaction, Mild, DIARRHEA, 12/24/18) citalopram (Verified Adverse Reaction, Unknown, MIGRAINES, 12/24/18) A-FIB/CHADSVASC A-FIB History Current/History of A-Fib/PAF?: No GME ATTESTATION GME ATTESTATION My faculty preceptor for this patient encounter was physically present during the encounter and was fully available. All aspects of the patient interview, examination, medical decision making process, and medical care plan development were reviewed and approved by the faculty preceptor. The faculty preceptor is aware and concurs with the plan as stated in the body of this note and will attest to such by his/her cosignature. ATTENDING NOTE ME ATTESTATION I personally examined the patient on 06/05/19 at 1050PM and discussed the case with Claus Ackerman. , a 54 yr old M w a PMH of metastatic Neuroendocrine tumor, anemia of chronic disease and CKD had no specific complaints today. Per d/w the ED provider, his PCP sent him for evaluation of abnormal labs; his Cr increased from 1.[address] Springer was consulted and asked for the patient to be admitted. We will admit him for management of KRISTIE and complete a work up to determine the underlying cause of the CKD. Rest per 's H&P RODRÍGUEZ LEVINE DO Jun 06, 2019 01:18 SB CORONADO MD Jun 10, 2019 02:43
[2019-06-06] MEDS: CARVedilol 12.5 MG TAB PO SCH ×2 (01:31→08:31)
[2019-06-06] MEDS: rifAXIMin 550 MG TAB (XIFAXAN) PO SCH ×2 (01:32→08:28)
--- NOTE | 2019-06-06 01:32 | REPVR ---
EXAM: US Retroperitoneal Limited, Kidneys EXAM DATE/TIME: 06/06/2019 12:48 AM CLINICAL HISTORY: 54 years old, male; Abnormal findings; Abnormal lab test; Abnormal kidney function lab tests; Additional info: Elevated creatinine, R/O hydro/post renal causes TECHNIQUE: Imaging protocol: Real-time ultrasound of the retroperitoneum with image documentation. Examination was focused on the kidneys. COMPARISON: ABD COMPLETE US 05/28/2019 6:10 AM FINDINGS: Right kidney measures 12.5 cm in length. Left kidney measures 13.6 cm in length. Renal parenchymal echotexture and cortical thickness are normal. No solid renal mass, cyst or hydronephrosis. No shadowing, echogenic foci suggestive of stones. Bladder is unremarkable. Patient did not void during exam. Ureter jets are not documented with Doppler exam IMPRESSION: Unremarkable ultrasound of the kidneys and bladder. Electronically signed by: Boris Horowitz On 06/06/2019 01:31:17 AM
[2019-06-06 02:07] LABS: FERRITIN 39 NG/ML (26-388); IRON (FE) 44 UG/DL (65-175); PERCENT SATURATION 14.7 % (19.7-50.0); PHOSPHORUS LEVEL 3.6 MG/DL (2.5-4.9); TOTAL IRON BINDING CAPACITY 299 UG/DL (250-450); TOTAL PROTEIN 6.1 GM/DL (6.4-8.2)
[2019-06-06 05:28] VITALS: BP_SYST 112; BP_SYST 113; BP_SYST 95; BP_DIAS 53; BP_DIAS 65; BP_DIAS 73
[2019-06-06 05:55] LABS: HEMATOCRIT 25.2 % (42.0-52.0); MEAN CORPUSCULAR HEMOGLOBIN 28.8 pg (27.0-33.0); MEAN CORPUSCULAR HGB CONC 31.7 g/dl (32.0-36.5); MEAN CORPUSCULAR VOLUME 90.6 fl (80.0-96.0); PLATELET COUNT, AUTOMATED 124 10^3/uL (150-450); RED BLOOD COUNT 2.78 10^6/uL (4.30-6.10)
[2019-06-06 06:00] VITALS: BP 101/57
[2019-06-06] MEDS ORDERED: HEPARIN SOD (PORCINE) 5000 UNITS/ML VIAL SC SCH (06:00)
[2019-06-06] MEDS ORDERED: HEPARIN SOD (PORCINE) 5000 UNITS/ML VIAL SQ SCH (06:00)
[2019-06-06 06:22] LABS: CALCIUM LEVEL 8.6 MG/DL (8.5-10.1); CREATININE FOR GFR 1.55 MG/DL (0.70-1.30); GLOMERULAR FILTRATION RATE 50.4 (>56)
[2019-06-06] MEDS: ALPRAZolam 0.5 MG TAB PO PRN ×2 (07:01→14:28)
--- NOTE | 2019-06-06 07:58 | REP ---
Clinical: Productive cough. Technique: PA and lateral. Comparison: 06/03/2019. Findings: Mediastinum and cardiac silhouette are stable. Lung maxwell demonstrate very subtle bibasilar atelectasis. No effusion. No pneumothorax. Skeletal structures intact. Impression: Findings suggest subtle bibasilar atelectasis. Electronically Signed by Janak Silva MD 06/06/2019 07:50 A
[2019-06-06 08:31] VITALS: BP 121/72
[2019-06-06] MEDS: HumaLOG INSULIN (NovoLOG) PER UNIT SC SCH ×2 (08:33→12:23)
[2019-06-06] MEDS ORDERED: HUMULIN R U-500 KWIKPEN 500UNITS/ML 3ML SYRINGE (J1815 PER 5UNITS) SC SCH ×2 (09:00→21:00)
[2019-06-06] MEDS ORDERED: FUROSEMIDE 20 MG TAB PO SCH (09:00)
[2019-06-06] MEDS ORDERED: PEN NEEDLE (USE WITH HUMULIN U-500 INSULIN PEN) XX SCH ×2 (09:00→21:00)
[2019-06-06] MEDS ORDERED: FERROUS SULFATE 325MG TAB PO SCH (09:00)
[2019-06-06] MEDS ORDERED: OMEPRAZOLE 20 MG CAP PO SCH (09:00)
[2019-06-06] MEDS ORDERED: CALCITRIOL 0.25 MCG CAP (S0169) PO SCH (09:00)
[2019-06-06] MEDS ORDERED: allopurinoL 300 MG TAB PO SCH (09:00)
[2019-06-06] MEDS ORDERED: PANTOPRAZOLE 40MG TAB (PROTONIX) PO SCH (09:00)
[2019-06-06] MEDS ORDERED: MAGNESIUM OXIDE 400 MG TAB (MAG-OX) PO SCH (09:00)
[2019-06-06 09:12] LABS: MAGNESIUM LEVEL 1.1 MG/DL (1.8-2.4)
[2019-06-06] MEDS ORDERED: MAG SULF 1GM/100ML (MAG RUN) 1 GM in IV 1 EA IV ONE (10:15)
[2019-06-06] MEDS ORDERED: MAGN400T2 PO (10:16)
[2019-06-06] MEDS: NS 1,000 ML IV SCH (12:12)
[2019-06-06 14:00] VITALS: BP 110/68
--- NOTE | 2019-06-06 14:15 | DSES ---
DATE OF ADMISSION: 06/05/2019 DATE OF DISCHARGE: 06/06/2019 REASON FOR ADMISSION: It appears Mr. Gilliam was admitted because of acute kidney injury. He had a creatinine that was elevated. He had been taking Lasix 80 daily and spironolactone 50 daily to help cope with swelling related to his chronic liver disease. 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 He has an rectal bleeding history and his hemoglobin was low at 8.2 and is 8.0 this morning. The patient's creatinine was 1.95 on admission and 1.55 today. Protein electrophoresis is pending vitamin D and PTH are pending. Urine was done which did not show evidence of infection that was also check for urine osmolality which was low and despite the patient has complaint of sleepiness a ammonia level was not done and will be ordered before discharge and will require followup confirmation of status. He is discharged today because the patient is his terminal with metastatic carcinoid syndrome and although he did agree to come in hospital for the purpose of transfusion did not consent to come in for any other purpose or any skilled nursing duration evaluation and workup and is essentially demanding discharge this afternoon after the transfusion is completed because of magnesium was low 1.4 yesterday and not addressed overnight is 1.1 this morning. We will give him a mag run which will not quite enough to replete his magnesium level but will have emma go with mag oxide 400 mg by mouth twice a day. He will continue his usual medicines at discharge with the exception of discontinuation of his furosemide. Discharge medications will therefore include allopurinol 300 mg daily, alprazolam 0.5 mg twice a day as needed for anxiety, atorvastatin 80 mg daily, Calcitriol 0.25 mg tablets taking 2 daily, carvedilol 25 mg twice a day, dexlansoprazole 60 mg daily, iron sulfate 325 by mouth twice a day, subcu insulin 10 units at bedtime lispro subcu before meals per sliding scale regimen and Nitrostat 0.4 mg as needed for chest pain, nortriptyline 100 mg at bedtime, octreotide this 30 mg IM per previous directions omeprazole 40 mg by mouth daily, oxycodone 5 mg every 4 hours as needed, prochlorperazine 5 mg as needed, rifaximin 550 mg by mouth twice a day, spironolactone 50 mg daily and tizanidine 4 mg. His ammonia level returns high, then we will add lactulose and also prescribe oxide 400 mg by mouth twice a day. He will followup with PCP within one week, Isela Alfredo has been identified as PCP in the community and activity as tolerated advised against operating motor vehicles DISCHARGE DIAGNOSIS: Metastatic carcinoid anemia acute kidney injury associated with diuretic use primary biliary cirrhosis, carcinoid metastasis to the liver, chronic kidney disease stage III, coronary artery disease status post six stents, placed history of gout and chronic systolic congestive failure. He will need followup in 1 week to recheck his ammonia, electrolytes including BUN, creatinine, potassium and reevaluate his fluid status. He may likely require resumption of furosemide at a lower dose from admission. Outpatient transfusion might be necessary. There was a plan to have him followup with Anny to evaluate GI blood loss problem, leave this to the primary care team in the outpatient arena. PROBLEM Latest to the primary care nurse and came in the outpatient arena history. Not thinks he
[2019-06-06] MEDS ORDERED: LACT10SO29 PO (14:25)
[2019-06-06] MEDS ORDERED: ATORVASTATIN 20 MG TAB PO SCH (21:00)
[2019-06-08] MEDS ORDERED: OXYC-517 PO ×3 (12:55→15:47)
[2019-06-08 14:21] LABS: PTH INTACT 115.3 PG/ML (18.5-88.0); TOTAL 25(OH) VITAMIN D 12.1 NG/ML (30.0-100.0)
--- NOTE | 2019-06-08 14:48 | CR ---
DATE OF CONSULTATION: 06/06/2019 CONSULTATION REPORT FOR: Dakota DevlinDO REASON FOR CONSULTATION: Acute renal failure superimposed on chronic kidney disease. HISTORY OF PRESENT ILLNESS: Mr. Gilliam is a 54-year-old gentleman who was admitted to [facility] yesterday as he was sent to the emergency room by his primary care physician due to abnormal laboratories. The patient has known history of chronic kidney disease, anemia, and a history of carcinoid tumor with metastasis in addition to type 2 diabetes and coronary artery disease. The patient has a baseline creatinine of about 1.3 mg/dL last year. In February 2019, his creatinine was 1.6 and on 06/04/2019 when he had laboratories done by Dr. Dominguez, his creatinine was 2.0. Due to which, he was advised to come to the emergency room. I did discuss the case with the emergency room physician and with the admitting physician separately. The patient reports that he was feeling dizzy and lightheaded at home and fell a couple of times. Fortunately, he did not break any bone. I had recommended to hydrate him with IV fluids. He is also noticed to be anemic. PAST MEDICAL AND SURGICAL HISTORY: Significant for: 1. History of carcinoid tumor of ilium with metastasis to the liver. 2. History of type 2 diabetes. 3. History of chronic kidney disease (CKD), stage III. 4. Hyperlipidemia. 5. Coronary artery disease with angioplasty and stents. 6. Gout. 6. Gastroesophageal reflux disease. 7. History of chronic systolic congestive heart failure. 8. History of cirrhosis. PAST SURGICAL HISTORY: Significant for multiple cardiac catheterizations and stents, small bowel tumor resection, appendectomy and lymph node resection. PERSONAL AND SOCIAL HISTORY: The patient is and he does not smoke. He quit smoking more than 10 years ago. Denies any alcohol or drug use. FAMILY HISTORY: Negative for kidney problems. ALLERGIES: The patient has allergy to CITALOPRAM and PAROXETINE. MEDICATIONS: Home medications include: - allopurinol 300 mg daily - atorvastatin 80 mg daily - calcitriol 0.25 mcg daily - Carvedilol 25 mg twice a day - Dexilant 60 mg daily - ferrous sulfate 325 mg twice a day - furosemide 80 mg daily - insulin U-500 10 units at bedtime and 40 units in the morning - Humalog insulin per sliding scale - octreotide 20 mg intramuscular (IM) once a month - omeprazole 40 mg daily - Xifaxan 550 mg twice a day - spironolactone 50 mg daily His as-needed medications include alprazolam, nitroglycerin, oxycodone and tizanidine. REVIEW OF SYSTEMS: The patient was not feeling well for a couple of days prior to admission. He was feeling lightheaded, weak and dizzy. He fell a few times at home. No fever or chills reported. Ears, nose and throat are unremarkable. Cardiovascular system is significant for systolic congestive heart failure and coronary artery disease with multiple angioplasties and stents. He denies any dyspnea or chest pain. He does have some chronic leg edema. Respiratory system is negative for cough or hemoptysis. Gastrointestinal (GI) system is negative for vomiting or diarrhea. He denies any abdominal pain. He has complicated GI problems with metastatic carcinoid. Genitourinary () system is significant for chronic kidney disease. He denies any dysuria or hematuria. Musculoskeletal system is significant for obesity and chronic lower extremity edema. Hematological system is significant for anemia. He denies any anticoagulation. Psychosocial system is significant for anxiety and depression. Neurological system is negative for seizures or stroke. Skin is negative for rash or ulcers. PHYSICAL EXAMINATION: The patient is sitting in the chair at the time of my visit. He is not in any acute distress. Temperature 97.5 degrees Fahrenheit, heart rate 84 per minute and respiratory rate 18 per minute. Blood pressure 101/57 mmHg and oxygen saturation 97%. Head is atraumatic. Neck is supple and without jugular venous distention (JVD) or thyroid enlargement. There is no oral thrush or ulcers. Heart sounds regular. Lungs sound clear to auscultation. Abdomen is protuberant, soft and nontender and bowel sounds are present. Extremities without any cyanosis or clubbing. Lower extremity edema is present, about 1+. Neurologically, he is awake, alert and oriented times three. Skin has no rash or ulcers. LABORATORY DATA: On admission, his hemoglobin was 8.2 and hematocrit 26.0. Today, hemoglobin is 8.0 and hematocrit 25.2. White cell count 7.0. He had laboratories done as an outpatient by Dr. Dominguez on 06/04/2019 and creatinine was 2.0. Yesterday on admission, his BUN was 28 and creatinine 1.95. Glucose 184 and serum osmolality was 300. Calcium 8.8 and magnesium 1.4. Total protein 6.2 and albumin 2.3. Today, his BUN is 27 and creatinine 1.55. Glucose 231 and calcium 8.6. Serum ammonia level is 90. Urinalysis was unremarkable. PROBLEMS: 1. Acute renal failure superimposed on chronic kidney disease, most likely prerenal caused by continued use of diuretics and probably decreased oral intake. He does have history of systolic congestive heart failure and has been on fluid restriction of 1500 mL per day. He is also on Lasix 80 mg daily at home. I discussed the case with the emergency room physician and with the admitting physician and have advised to stop diuretic and hydrate him with IV fluid. He is receiving intravenous fluid and kidney function has already improved. I feel that now his oral intake is adequate and IV fluid can be stopped safely while he should stay off his diuretic for now. Most likely, we will have to cut down his diuretic dose to 40 mg daily. 2. Anemia. His anemia is worsened and he is going to have one unit of packed red blood cell (RBC). He also has borderline iron deficiency and should continue with iron supplement. 3. Cirrhosis of liver with elevated ammonia level. This is probably baseline and the patient is mentating very well. At this point, I will not recommend to give him lactulose due to risk of diarrhea and further dehydration. 4. Carcinoid with liver metastasis. The patient has been followed by oncology and remains on octreotide 20 mg once a month. Thank you for involving me in the care of Mr. Gilliam. He will be followed up along with you.
[2019-06-10 00:06] LABS: VITAMIN D 1,25 DIHYDROXY 12.4 pg/mL (19.9-79.3)
[2019-06-10] MEDS ORDERED: TOUJ300I2 SC (10:37)
[2019-06-11 09:53] LABS: ALBUMIN 2.62 GM/DL (3.29-5.55)
[2019-06-11 09:54] LABS: ALBUMIN % 42.9 % (55.8-66.1); ALPHA-1-GLOBULIN % 5.7 % (2.9-4.9); ALPHA-1-GLOBULINS 0.35 GM/DL (0.17-0.41); ALPHA-2-GLOBULINS 0.52 GM/DL (0.42-0.99); ALPHA-2-GLOBULINS % 8.5 % (7.1-11.8); BETA-1-GLOBULINS 0.52 GM/DL (0.28-0.60); BETA-1-GLOBULINS % 8.5 % (4.7-7.2); BETA-2-GLOBULINS 0.61 GM/DL (0.19-0.55); GAMMA GLOBULIN % 24.4 % (11.1-18.8); GAMMA GLOBULINS 1.49 GM/DL (0.65-1.58)
[2019-06-16] MEDS ORDERED: [UNRECOGNIZED DRUG - CODE] IJ (15:58)
[2019-07-08] MEDS ORDERED: OXYC-517 PO ×2 (11:20→17:31)
[2019-07-08] MEDS ORDERED: POTA10CA32 PO (11:31)
[2019-07-28] MEDS ORDERED: OXYC-517 PO (09:12)
[2019-09-09] MEDS ORDERED: FURO80TA2 PO (15:24)
[2019-09-09] MEDS ORDERED: POTA10808 PO (15:24)
[2019-09-11] MEDS ORDERED: LOPE1CAP5 PO (14:47)
[2019-10-02] MEDS ORDERED: LOMO2.5T PO (10:55)
== END 2019-06-06 17:00 | disposition home or self-care (01) ==
LOC: M ED 17:34 → M ED INP 17:35 → M MSPAV 06-06 01:00
PROVIDERS: ADMIT Internal Medicine; ATTEND Internal Medicine
DX: N17.9 Acute kidney failure, unspecified (principal); D63.0 Anemia in neoplastic disease; C7B.02 Secondary carcinoid tumors of liver; C7A.012 Malignant carcinoid tumor of the ileum; E11.9 Type 2 diabetes mellitus without complications; N18.3 Chronic kidney disease, stage 3 (moderate); I12.9 Hypertensive chronic kidney disease with stage 1 through stage 4 chronic kidney disease, or unspecified chronic kidney disease; I25.10 Atherosclerotic heart disease of native coronary artery without angina pectoris; Z95.5 Presence of coronary angioplasty implant and graft; M10.9 Gout, unspecified; I50.22 Chronic systolic (congestive) heart failure; K76.9 Liver disease, unspecified; E34.0 Carcinoid syndrome; F41.9 Anxiety disorder, unspecified; Z87.891 Personal history of nicotine dependence; E78.49 Other hyperlipidemia; K21.9 Gastro-esophageal reflux disease without esophagitis; Z79.4 Long term (current) use of insulin; Z79.899 Other long term (current) drug therapy; Z88.8 Allergy status to other drugs, medicaments and biological substances; R94.4 Abnormal results of kidney function studies
CPT/HCPCS: 36415; 71046; 76775; 80048; 80053; 81001; 82140; 82306; 82570; 82652; 82728; 83735; 83930; 83935; 83970; 84100; 84133; 84165; 84466; 85025; 85027; 86850; 86900; 86901; 86920; 96360; 96372; 99285; G0378; G0463; J1815; J3475; P9016

== ENCOUNTER → 2019-06-05 | Outpatient (REF) | payer MEDICARE ==
[~2019-06-05] MED LIST changes: +MAGN400T2 PO; +OMEP40CA2 PO; -OMEP40CA97 PO; -ONDA8TAB10 PO; +ONDA8TAB7 PO
[2019-06-05 16:14] LABS: CALCIUM LEVEL 8.5 MG/DL (8.5-10.1); CREATININE FOR GFR 1.98 MG/DL (0.70-1.30); MAGNESIUM LEVEL 1.5 MG/DL (1.8-2.4); POTASSIUM SERUM 3.8 MEQ/L (3.5-5.1)
[2019-06-05 16:24] LABS: HEMATOCRIT 24.8 % (42.0-52.0); HEMOGLOBIN 7.7 g/dl (13.5-17.5); MEAN CORPUSCULAR HEMOGLOBIN 28.1 pg (27.0-33.0); MEAN CORPUSCULAR VOLUME 90.5 fl (80.0-96.0); PLATELET COUNT, AUTOMATED 126 10^3/uL (150-450); RED BLOOD COUNT 2.74 10^6/uL (4.30-6.10); WHITE BLOOD COUNT 7.1 10^3/uL (4.0-10.0)
== END ==
LOC: M LABDRAW1 15:51
PROVIDERS: ATTEND Family Medicine
DX: D50.0 Iron deficiency anemia secondary to blood loss (chronic) (principal); E87.6 Hypokalemia; E83.42 Hypomagnesemia

== ENCOUNTER → 2019-06-11 | Outpatient (REF) | payer MEDICARE ==
[~2019-06-11] MED LIST changes: +MAGN400T2 PO; +OMEP40CA2 PO; -OMEP40CA97 PO; -ONDA8TAB10 PO; +ONDA8TAB7 PO; +TOUJ300I2 SC; +[UNRECOGNIZED DRUG - CODE] IJ
[2019-06-11 12:56] LABS: BASO % 0.5 % (0.0-1.0); EOS # 0.2 10^3/uL (0.0-0.5); EOS % 2.5 % (0.0-3.0); HEMATOCRIT 25.7 % (42.0-52.0); HEMOGLOBIN 8.1 g/dl (13.5-17.5); LYMPH # 1.5 10^3/uL (1.5-5.0); LYMPH % 19.3 % (24.0-44.0); MEAN CORPUSCULAR HEMOGLOBIN 27.8 pg (27.0-33.0); MEAN CORPUSCULAR HGB CONC 31.5 g/dl (32.0-36.5); MEAN CORPUSCULAR VOLUME 88.3 fl (80.0-96.0); MONO # 0.9 10^3/uL (0.0-0.8); MONO % 11.5 % (0.0-5.0); NEUTROPHILS % 65.8 % (36.0-66.0); PLATELET COUNT, AUTOMATED 124 10^3/uL (150-450); RED BLOOD COUNT 2.91 10^6/uL (4.30-6.10); WHITE BLOOD COUNT 7.6 10^3/uL (4.0-10.0)
[2019-06-11 13:24] LABS: ALBUMIN 2.4 GM/DL (3.2-5.2); ALT/SGPT 17 U/L (12-78); BILIRUBIN,TOTAL 0.9 MG/DL (0.2-1.0); BLOOD UREA NITROGEN 13 MG/DL (7-18); CALCIUM LEVEL 8.6 MG/DL (8.5-10.1); CARBON DIOXIDE LEVEL 23 MEQ/L (21-32); CHLORIDE LEVEL 106 MEQ/L (98-107); CREATININE FOR GFR 1.14 MG/DL (0.70-1.30); GLOMERULAR FILTRATION RATE > 60.0 (>56); GLUCOSE, FASTING 230 MG/DL (70-100); MAGNESIUM LEVEL 1.2 MG/DL (1.8-2.4); NT-PRO BNP 202 PG/ML (<125); POTASSIUM SERUM 4.3 MEQ/L (3.5-5.1); SODIUM LEVEL 138 MEQ/L (136-145); TOTAL PROTEIN 6.1 GM/DL (6.4-8.2)
== END ==
LOC: M LABDRAW1 09:46
PROVIDERS: ATTEND Physician Assistant Medical
DX: I10 Essential (primary) hypertension (principal); E83.42 Hypomagnesemia; D50.0 Iron deficiency anemia secondary to blood loss (chronic); E11.9 Type 2 diabetes mellitus without complications; Z79.899 Other long term (current) drug therapy

== ENCOUNTER → 2019-06-15 | Outpatient (REF) | payer MEDICARE ==
[2019-06-15 14:00] LABS: BASO % 0.7 % (0.0-1.0); EOS # 0.2 10^3/uL (0.0-0.5); EOS % 3.2 % (0.0-3.0); HEMATOCRIT 26.3 % (42.0-52.0); HEMOGLOBIN 8.4 g/dl (13.5-17.5); LYMPH # 1.3 10^3/uL (1.5-5.0); LYMPH % 21.8 % (24.0-44.0); MEAN CORPUSCULAR HEMOGLOBIN 28.4 pg (27.0-33.0); MEAN CORPUSCULAR HGB CONC 31.9 g/dl (32.0-36.5); MEAN CORPUSCULAR VOLUME 88.9 fl (80.0-96.0); MONO # 0.5 10^3/uL (0.0-0.8); MONO % 8.6 % (0.0-5.0); NEUTROPHILS # 3.9 10^3/uL (1.5-8.5); NEUTROPHILS % 65.4 % (36.0-66.0); PLATELET COUNT, AUTOMATED 146 10^3/uL (150-450); RED BLOOD COUNT 2.96 10^6/uL (4.30-6.10); WHITE BLOOD COUNT 5.9 10^3/uL (4.0-10.0)
[2019-06-15 14:11] LABS: ALBUMIN 2.4 GM/DL (3.2-5.2); ALT/SGPT 16 U/L (12-78); BILIRUBIN,TOTAL 0.8 MG/DL (0.2-1.0); BLOOD UREA NITROGEN 12 MG/DL (7-18); CALCIUM LEVEL 8.5 MG/DL (8.5-10.1); CARBON DIOXIDE LEVEL 27 MEQ/L (21-32); CHLORIDE LEVEL 105 MEQ/L (98-107); CREATININE FOR GFR 1.05 MG/DL (0.70-1.30); GLOMERULAR FILTRATION RATE > 60.0 (>56); GLUCOSE, FASTING 165 MG/DL (70-100); MAGNESIUM LEVEL 1.4 MG/DL (1.8-2.4); NT-PRO BNP 116 PG/ML (<125); POTASSIUM SERUM 3.8 MEQ/L (3.5-5.1); SODIUM LEVEL 140 MEQ/L (136-145); TOTAL PROTEIN 6.3 GM/DL (6.4-8.2)
== END ==
LOC: M LABDRAW1 12:10
PROVIDERS: ATTEND Physician Assistant Medical
DX: E83.42 Hypomagnesemia (principal); D50.0 Iron deficiency anemia secondary to blood loss (chronic); I50.23 Acute on chronic systolic (congestive) heart failure; N18.3 Chronic kidney disease, stage 3 (moderate)

== ENCOUNTER 2019-06-22 11:54 | Day surgery (SDC) | payer MEDICARE ==
[~2019-06-22] VITALS: Ht 182.9 cm; Wt 126.6 kg
[~2019-06-22 11:54] MED LIST changes: +NS 1,000 ML IV ONE
[2019-06-22] MEDS ORDERED: LIDOCAINE 2% INJ 100 MG/5 ML SDV (FOR ANES.) As Ordered ONE (13:07)
[2019-06-22] MEDS ORDERED: PROPOFOL 200 MG/20 ML VIAL As Ordered ONE ×3 (13:07→13:30)
--- NOTE | 2019-06-22 13:26 | ROOR ---
Patient Name: Layton Gilliam Procedure Date: 06/22/2019 1:05 PM Date of : 1965 Age: 54 Room: [facility] Gender: Male Note Status: Finalized Procedure: Upper GI endoscopy Indications: Iron deficiency anemia, Cirrhosis rule out esophageal varices Providers: Jean POOLE MD Referring MD: Isela CARDENAS Requesting Provider: Medicines: Monitored Anesthesia Care Complications: No immediate complications. Procedure: Pre-Anesthesia Assessment: - The heart rate, respiratory rate, oxygen saturations, blood pressure, adequacy of pulmonary ventilation, and response to care were monitored throughout the procedure. The Endoscope was introduced through the mouth, and advanced to the second part of duodenum. The upper GI endoscopy was accomplished without difficulty. The patient tolerated the procedure well. Findings: The examined esophagus was normal. Mild portal hypertensive gastropathy was found in the gastric body. A single 4 mm sessile polyp with no stigmata of recent bleeding was found in the gastric body. This was biopsied with a cold forceps for histology. The exam of the stomach was otherwise normal. The examined duodenum was normal. Impression: - Normal esophagus. - Mild portal hypertensive gastropathy. - A single 3-4 mm gastric polyp/nodularity. Biopsied. - Otherwise normal stomach. - Normal examined duodenum. - (No esophageal or gastric varices seen.) Recommendation: - Continue present medications. - Telephone endoscopist for pathology results in 2 weeks. - Observe patient's clinical course. Jean Poole MD Jean POOLE MD 06/22/2019 1:25:37 PM Electronically signed by Jean POOLE MD Number of Addenda: 0 Note Initiated On: 06/22/2019 1:05 PM Estimated Blood Loss: Estimated blood loss: none.
[2019-06-22] MEDS ORDERED: PHENYLephrine HCL 500 MCG/5 ML (100MCG/ML) SYRINGE (J2370) As Ordered ONE (13:29)
[2019-06-22] MEDS ORDERED: ePHEDrine SULFATE 25 MG/5 ML(5MG/ML) SYRINGE As Ordered ONE (13:47)
[2019-06-22 13:55] VITALS: BP 118/55
--- NOTE | 2019-06-22 13:58 | ROOR ---
Patient Name: Layton Gilliam Procedure Date: 06/22/2019 1:05 PM Date of : 1965 Age: 54 [facility] Gender: Male Note Status: Finalized Procedure: Colonoscopy Indications: Iron deficiency anemia, Family history of colon cancer in a first-degree relative, Family history of colon cancer in multiple first-degree relatives Providers: Jean POOLE MD Referring MD: Isela CARDENAS Requesting Provider: Medicines: Monitored Anesthesia Care Complications: No immediate complications. Procedure: Pre-Anesthesia Assessment: - The heart rate, respiratory rate, oxygen saturations, blood pressure, adequacy of pulmonary ventilation, and response to care were monitored throughout the procedure. The Colonoscope was introduced through the anus and advanced to the terminal ileum, with identification of the appendiceal orifice and IC valve. The colonoscopy was performed without difficulty. The patient tolerated the procedure well. The quality of the bowel preparation was good. Findings: The perianal and digital rectal examinations were normal. A 6 mm polyp was found in the rectum. The polyp was semi-pedunculated. The polyp was removed with a cold snare. Resection and retrieval were complete. To prevent bleeding after the polypectomy, three hemostatic clips were successfully placed. Three semi-sessile polyps were found in the sigmoid colon. The polyps were 5 to 6 mm in size. These polyps were removed with a cold snare. Resection and retrieval were complete. To prevent bleeding after the polypectomy, two hemostatic clips were successfully placed. There was no bleeding at the end of the procedure. A few scattered 3-4 mm erythematous spots were found in the entire colon (these do NOT appear to be vascular/ vascular ectasias). This was biopsied with a cold forceps for histology. Impression: - One 6 mm polyp in the rectum, removed with a cold snare. Resected and retrieved. Clips were placed. - Three 5 to 6 mm polyps in the sigmoid colon, removed with a cold snare. Resected and retrieved. Clips were placed. - A few (4-5) small scattered red spots the entire examined colon. These are of dubious significance. Biopsied. - The colon is otherwise normal. Recommendation: - Await pathology results. - Telephone endoscopist for pathology results in 2 weeks. - Repeat colonoscopy in 3 - 5 years for surveillance based on pathology results. Jean Poole MD Jean POOLE MD 06/22/2019 1:57:59 PM Electronically signed by Jean POOLE MD Number of Addenda: 0 Note Initiated On: 06/22/2019 1:05 PM Estimated Blood Loss: Estimated blood loss: none.
== END 2019-06-22 14:30 | disposition home or self-care (01) ==
LOC: M OPP 11:54
PROVIDERS: ATTEND Internal Medicine Gastroenterology
DX: K62.1 Rectal polyp (principal); D12.5 Benign neoplasm of sigmoid colon; K63.89 Other specified diseases of intestine; D50.9 Iron deficiency anemia, unspecified; K76.6 Portal hypertension; K31.89 Other diseases of stomach and duodenum; K31.7 Polyp of stomach and duodenum; K74.60 Unspecified cirrhosis of liver; I50.9 Heart failure, unspecified; Z79.899 Other long term (current) drug therapy; Z79.4 Long term (current) use of insulin; Z79.82 Long term (current) use of aspirin; Z88.8 Allergy status to other drugs, medicaments and biological substances; Z80.0 Family history of malignant neoplasm of digestive organs; Z95.5 Presence of coronary angioplasty implant and graft
CPT/HCPCS: 43239; 45380; 45385; 88305; J2370

== ENCOUNTER → 2019-06-26 | Outpatient (CLI) | payer MEDICARE ==
[~2019-06-26] MED LIST changes: -NS 1,000 ML IV ONE
--- NOTE | 2019-06-26 18:46 | REP ---
LEFT SHOULDER, COMPLETE: 06/26/2019. Comparison: Left humerus today. Clinical history: Shoulder injury. Pain radiating down arm. Findings: The AC joint shows no widening of the joint space or elevation of the clavicle. There is inferior spur at the clavicle margin. No clavicular spur. Minor degenerative changes at the glenohumeral joint inferiorly. No subluxation or dislocation. I see no visible fracture of the humerus, scapula, clavicle or ribs. There is no pleural thickening or pneumothorax noted about the left ribs. Impression: 1. Spurring at the inferior margin of the clavicle and minor degenerative changes glenohumeral joint. No visible fracture, avulsion, subluxation, abnormal soft-tissue calcification or other acute finding. Electronically Signed by Rj Cordero MD 06/26/2019 08:27 P
--- NOTE | 2019-06-26 18:47 | REP ---
LEFT HUMERUS: 06/26/2019. Clinical history: Trauma, shoulder and arm pain. Findings: Two-views show the shaft of the humerus intact. Small sclerotic area suggesting a bone island distal shaft. There is no definite acute fracture or avulsion about the humeral head or distal humerus. Old contour deformity greater tuberosity humeral head with sclerosis. Impression: 1. No evidence of an acute fracture of the humerus. There are minor degenerative changes at the shoulder and AC joint. No subluxation. Chronic contour deformity suggested with sclerosis greater tuberosity from old trauma suggested. Electronically Signed by Rj Cordero MD 06/26/2019 08:27 P
--- NOTE | 2019-06-26 18:49 | REP ---
LEFT ELBOW COMPLETE: 06/26/2019. Clinical history: Trauma, shoulder and upper arm pain. Comparison: Left humerus this date. Findings: A tiny spur at the insertion of the triceps tendon on the posterior olecranon. No olecranon bursitis or elbow joint effusion. Radial head and capitellum align normally on all projections. Bone island in the distal humeral shaft and proximal radial metaphysis. Minor spurring coronoid process of the ulna. There is no visible fracture or avulsion about the epicondyles. Impression: 1. No fracture or acute bony finding about the elbow. Electronically Signed by Rj Cordero MD 06/26/2019 08:27 P
== END ==
LOC: M WUC 17:39
PROVIDERS: ATTEND Physician Assistant
DX: M25.712 Osteophyte, left shoulder (principal)

== ENCOUNTER 2019-07-29 14:51 | Outpatient (CLI) | payer MEDICAID, MEDICARE ==
[~2019-07-29] VITALS: Ht 182.9 cm; Wt 130.4 kg
[~2019-07-29 14:51] MED LIST changes: -OMEP40CA2 PO; +OMEP40CA97 PO; +POTA10CA32 PO
[2019-07-29 15:00] VITALS: BP 104/65
[2019-07-29] MEDS ORDERED: SODIUM CHLORIDE 0.9% 1000ML IV ONE (15:00)
[2019-07-29 15:45] LABS: HEMATOCRIT 32.3 % (42.0-52.0); HEMOGLOBIN 10.4 g/dl (13.5-17.5); MEAN CORPUSCULAR HEMOGLOBIN 28.5 pg (27.0-33.0); MEAN CORPUSCULAR HGB CONC 32.2 g/dl (32.0-36.5); MEAN CORPUSCULAR VOLUME 88.5 fl (80.0-96.0); PLATELET COUNT, AUTOMATED 147 10^3/uL (150-450); RED BLOOD COUNT 3.65 10^6/uL (4.30-6.10)
[2019-07-29 16:03] LABS: CALCIUM LEVEL 8.3 MG/DL (8.5-10.1); CREATININE FOR GFR 1.74 MG/DL (0.70-1.30); GLOMERULAR FILTRATION RATE 44.1 (>56); POTASSIUM SERUM 3.1 MEQ/L (3.5-5.1)
[2019-07-29 18:00] VITALS: BP 127/72
--- NOTE | 2019-07-29 18:44 | REP ---
Abdominal series: Three views. History: Periumbilical abdominal pain. Comparison study June 05, 2019. Findings: Upright chest radiograph shows some elevation of the right hemidiaphragm unchanged. There are mild linear opacities in the bases again noted consistent with plate-like atelectasis. There is no evidence of infiltrate or free subdiaphragmatic air. Supine and erect views of the abdomen show clips in the right upper quadrant consistent with a previous cholecystectomy. The bowel gas pattern is normal. There is air and stool in a nondistended colon. No small or large bowel dilation is seen. There are sutures in the right lower abdomen as well. Impression: Unremarkable bowel gas pattern. No evidence of obstruction or free air. Mild bibasilar plate-like atelectasis in the lungs. Electronically Signed by Jamel Tristan MD 07/29/2019 07:11 P
== END 2019-07-29 18:00 | disposition home or self-care (01) ==
LOC: M INFU 14:51
PROVIDERS: ATTEND Physician Assistant Medical
DX: I95.9 Hypotension, unspecified (principal); R10.33 Periumbilical pain; R11.2 Nausea with vomiting, unspecified
CPT/HCPCS: 36415; 74021; 80048; 83690; 85027; 96360; 96361; 96372; G0463; J2405

== ENCOUNTER → 2019-08-03 | Outpatient (REF) | payer MEDICARE ==
[2019-08-03 11:55] LABS: ALBUMIN 2.9 GM/DL (3.2-5.2); BILIRUBIN,TOTAL 0.9 MG/DL (0.2-1.0); CALCIUM LEVEL 8.2 MG/DL (8.5-10.1); CREATININE FOR GFR 1.79 MG/DL (0.70-1.30); GLOMERULAR FILTRATION RATE 42.7 (>56); POTASSIUM SERUM 3.2 MEQ/L (3.5-5.1); TOTAL PROTEIN 7.4 GM/DL (6.4-8.2)
== END ==
LOC: M SFHCPLAZ 09:22
PROVIDERS: ATTEND Physician Assistant Medical
DX: E87.6 Hypokalemia (principal)

== ENCOUNTER → 2019-10-06 | Outpatient (CLI) | payer MEDICARE, MEDICAID ==
[~2019-10-06] MED LIST changes: +LOPE1CAP5 PO; +POTA10808 PO
[2019-10-06 14:18] LABS: ALBUMIN 2.7 GM/DL (3.2-5.2); BILIRUBIN,TOTAL 1.1 MG/DL (0.2-1.0); CALCIUM LEVEL 8.5 MG/DL (8.5-10.1); CREATININE FOR GFR 1.57 MG/DL (0.70-1.30); GLOMERULAR FILTRATION RATE 49.6 (>56); POTASSIUM SERUM 4.7 MEQ/L (3.5-5.1); TOTAL PROTEIN 7.4 GM/DL (6.4-8.2)
== END ==
LOC: M WUC 10:38
PROVIDERS: ATTEND Physician Assistant Medical
DX: I95.1 Orthostatic hypotension (principal)

== ENCOUNTER → 2019-10-06 | Outpatient (CLI) | payer MEDICARE, MEDICAID ==
--- NOTE | 2019-10-06 11:37 | REP ---
INDICATION: Malignant carcinoid tumor PROCEDURE: Plain film cervical spine. AP, sagittal and oblique images. COMPARISON STUDIES: No prior similar study. FINDINGS: Spinal alignment within normal limits. No significant degenerative changes. No blastic or lytic lesions. Soft tissues appear unremarkable. CONCLUSION: Normal examination. No significant degenerative changes, no definite focal lesions. Electronically Signed by Jack Dean MD 10/06/2019 11:28 A
== END ==
LOC: M WUC 10:33
PROVIDERS: ATTEND Internal Medicine Hematology
DX: C7A.012 Malignant carcinoid tumor of the ileum (principal); I95.1 Orthostatic hypotension

== ENCOUNTER → 2019-10-13 | Outpatient (REF) | payer MEDICARE ==
[~2019-10-13] MED LIST changes: +ONDA8TAB10 PO; -ONDA8TAB7 PO
[2019-10-13 14:07] LABS: BASO % 0.7 % (0.0-1.0); EOS # 0.3 10^3/uL (0.0-0.5); EOS % 4.7 % (0.0-3.0); HEMATOCRIT 29.1 % (42.0-52.0); HEMOGLOBIN 9.1 g/dl (13.5-17.5); LYMPH # 1.7 10^3/uL (1.5-5.0); MEAN CORPUSCULAR HEMOGLOBIN 27.7 pg (27.0-33.0); MEAN CORPUSCULAR HGB CONC 31.3 g/dl (32.0-36.5); MEAN CORPUSCULAR VOLUME 88.7 fl (80.0-96.0); MONO # 0.6 10^3/uL (0.0-0.8); NEUTROPHILS # 2.7 10^3/uL (1.5-8.5); NEUTROPHILS % 50.2 % (36.0-66.0); PLATELET COUNT, AUTOMATED 137 10^3/uL (150-450); RED BLOOD COUNT 3.28 10^6/uL (4.30-6.10); WHITE BLOOD COUNT 5.3 10^3/uL (4.0-10.0)
[2019-10-13 14:30] LABS: FERRITIN 17 NG/ML (26-388); IRON (FE) 25 UG/DL (65-175)
== END ==
LOC: M SFHCPLAZ 13:17
PROVIDERS: ATTEND Physician Assistant Medical
DX: D50.0 Iron deficiency anemia secondary to blood loss (chronic) (principal)

== ENCOUNTER → 2019-10-27 | Outpatient (CLI) | payer MEDICARE, MEDICAID ==
[~2019-10-27] MED LIST changes: +CARV6.25 PO; +CYCL10TA PO; +REQU1TAB14 PO; -[UNRECOGNIZED DRUG - CODE] IJ; +[UNRECOGNIZED DRUG - CODE] INJ
[2019-10-27 16:39] LABS: BASO % 0.6 % (0.0-1.0); EOS # 0.2 10^3/uL (0.0-0.5); EOS % 3.5 % (0.0-3.0); HEMATOCRIT 28.5 % (42.0-52.0); HEMOGLOBIN 8.6 g/dl (13.5-17.5); LYMPH # 1.5 10^3/uL (1.5-5.0); LYMPH % 28.2 % (24.0-44.0); MEAN CORPUSCULAR HGB CONC 30.2 g/dl (32.0-36.5); MEAN CORPUSCULAR VOLUME 89.6 fl (80.0-96.0); MONO # 0.4 10^3/uL (0.0-0.8); NEUTROPHILS # 3.2 10^3/uL (1.5-8.5); NEUTROPHILS % 59.5 % (36.0-66.0); PLATELET COUNT, AUTOMATED 116 10^3/uL (150-450); RED BLOOD COUNT 3.18 10^6/uL (4.30-6.10); WHITE BLOOD COUNT 5.4 10^3/uL (4.0-10.0)
[2019-10-27 17:06] LABS: ALBUMIN 2.8 GM/DL (3.2-5.2); BILIRUBIN,TOTAL 0.7 MG/DL (0.2-1.0); CALCIUM LEVEL 8.8 MG/DL (8.5-10.1); CREATININE FOR GFR 2.2 MG/DL (0.70-1.30); GLOMERULAR FILTRATION RATE 33.6 (>56); POTASSIUM SERUM 4.4 MEQ/L (3.5-5.1); TOTAL PROTEIN 7.5 GM/DL (6.4-8.2)
== END ==
LOC: M PLALAB 12:00
PROVIDERS: ATTEND Physician Assistant Medical
DX: K21.9 Gastro-esophageal reflux disease without esophagitis (principal)

== ENCOUNTER 2019-10-28 10:54 | Inpatient (IN) | payer MEDICAID, MEDICARE ==
[~2019-10-28] VITALS: Ht 182.9 cm; Wt 131.1 kg
[~2019-10-28 10:54] MED LIST changes: -CARV6.25 PO; -CYCL10TA PO; -REQU1TAB14 PO
[2019-10-28 11:45] LABS: BASO # 0.1 10^3/uL (0.0-0.2); BASO % 0.9 % (0.0-1.0); EOS # 0.3 10^3/uL (0.0-0.5); EOS % 4.8 % (0.0-3.0); HEMATOCRIT 30.5 % (42.0-52.0); HEMOGLOBIN 9.5 g/dl (13.5-17.5); LYMPH # 1.3 10^3/uL (1.5-5.0); LYMPH % 22.1 % (24.0-44.0); MEAN CORPUSCULAR HEMOGLOBIN 27.2 pg (27.0-33.0); MEAN CORPUSCULAR HGB CONC 31.1 g/dl (32.0-36.5); MEAN CORPUSCULAR VOLUME 87.4 fl (80.0-96.0); MONO # 0.4 10^3/uL (0.0-0.8); MONO % 7.5 % (0.0-5.0); NEUTROPHILS # 3.7 10^3/uL (1.5-8.5); NEUTROPHILS % 64.2 % (36.0-66.0); PLATELET COUNT, AUTOMATED 131 10^3/uL (150-450); RED BLOOD COUNT 3.49 10^6/uL (4.30-6.10); WHITE BLOOD COUNT 5.8 10^3/uL (4.0-10.0)
[2019-10-28 12:19] LABS: ALBUMIN 3.1 GM/DL (3.2-5.2); ALT/SGPT 23 U/L (12-78); BLOOD UREA NITROGEN 29 MG/DL (7-18); CALCIUM LEVEL 9.3 MG/DL (8.5-10.1); CARBON DIOXIDE LEVEL 25 MEQ/L (21-32); CHLORIDE LEVEL 101 MEQ/L (98-107); CK-MB VALUE MASS 4.2 NG/ML (<3.6); CPK CREATINE PHOSPHOKINASE 168 U/L (39-308); CREATININE FOR GFR 2.11 MG/DL (0.70-1.30); GLOMERULAR FILTRATION RATE 35.3 (>56); GLUCOSE, FASTING 267 MG/DL (70-100); POTASSIUM SERUM 5.1 MEQ/L (3.5-5.1); SODIUM LEVEL 135 MEQ/L (136-145); TOTAL PROTEIN 8.2 GM/DL (6.4-8.2); TROPONIN I < 0.02 NG/ML (< 0.10)
[2019-10-28] MEDS ORDERED: CARV6.25 PO (14:15)
[2019-10-28] MEDS ORDERED: OXYC-517 PO (14:27)
[2019-10-28] MEDS ORDERED: LOMO2.5T PO (14:27)
[2019-10-28] MEDS ORDERED: INSUR50VL SC (14:27)
[2019-10-28] MEDS ORDERED: GLUCOSE 4 GM CHEW TABLET PO PRN (14:30)
[2019-10-28] MEDS ORDERED: LACTULOSE 20 GM/30 ML SYRUP UD PR ONE (14:30)
[2019-10-28] MEDS ORDERED: GLUCAGON FOR INJ 1 MG VIAL (J1610) SC PRN (14:30)
[2019-10-28] MEDS ORDERED: DEXTROSE 50% 50 ML SYRINGE IV PRN (14:30)
[2019-10-28] MEDS ORDERED: REQU1TAB14 PO (14:32)
[2019-10-28] MEDS ORDERED: CYCL10TA PO (14:32)
--- NOTE | 2019-10-28 14:56 | ECGEPIP ---
[facility] - ED Test Date: 2019-10-28 Pat Name: DOM SILVA Department: Room: - Gender: Male Appointment Coordinator: : 1965 Requested By: MARYELLEN Montesinos PA-C Order Number: [id number] Reading MD: Jean Burks Measurements Intervals [place] Rate: 76 P: [place]: 0 QRS: -5 QRSD: 130 T: 23 QT: 422 QTc: 477 Interpretive Statements UNCERTAIN REGULAR RHYTHM Low QRS complex voltage in the limb leads MODERATE INTRAVENTRICULAR CONDUCTION DELAY Delayed anterior R wave progression Nonspecific ST-T wave abnormalities Similar to tracing done 05-27-19 Electronically Signed on 10-28-2019 14:55:51 EST by Jean Burks
[2019-10-28] MEDS ORDERED: oxyCODONE 5MG TAB PO PRN (15:15)
[2019-10-28 15:40] VITALS: BP 124/75
[2019-10-28 16:19] LABS: HEMOGLOBIN A1c 10.7 %
--- NOTE | 2019-10-28 16:36 | HPEPDOC ---
General Date of Admission Oct 28, 2019 at 14:20 Date of Service: Oct 28, 2019 Chief Complaint The patient is a 54-year-old male admitted with a reason for visit of Hepatic Encephalopathy. 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 He has been getting frequent lab work as they were concerned about his down trending of Hb. Yesterday his hb was 8.6 and his blood sugar was 506 and he was instructed to come to the ED for blood transfusion and his high sugars. Lab work in the ED shows Hb of 9.5, his sugar was 267 with A1c of 10.7 and his creatinine was higher than baseline. He was also noted to have an ammonia of 97. Patient's says he has been sleeping more and has been easily fatigued and has been forgetful. He does not take any lactulose as he does not like the taste. He has no diarrhea and no constipation also. has one semisoft bowel movement daily. He has not noticed any blood in the stool. He was admitted for hepatic encephalopathy, Kristie on ckd, uncontrolled sugars and evaluation of possible GIB ad any requirement of blood transfusion. Home Medications Scheduled Allopurinol (Zyloprim) 300 Mg Tab, 300 MG PO DAILY, (Reported) Atorvastatin Calcium (Atorvastatin Calcium) 80 Mg Tablet, 80 MG PO QHS, (Reported) Calcitriol (Calcitriol) 0.25 Mcg Capsule, 0.25 MCG PO DAILY, (Reported) Carvedilol (Carvedilol) 6.25 Mg Tablet, 6.25 MG PO BID, (Reported) Dexlansoprazole (Dexilant) 60 Mg Elías., 60 MG PO DAILY, (Reported) PT HAS BEEN FILLING DEXILANT AND OMEPRAZOLE Diphenoxylate HCl/Atropine (Lomotil 2.5-0.025 mg Tablet) 1 Each Tablet, 1 TAB PO QID Take as directed Ferrous Sulfate (Iron) 325 Mg Tablet, 325 MG PO TID, (Reported) MORNING,lunch AND DINNER Furosemide (Furosemide) 80 Mg Tablet, 40 MG PO DAILY, (Reported) Insulin (Humulin R U-500) 500 Unit/1 Ml Vial, 40 UNITS SC BID, (Reported) Insulin Human Lispro (Humalog) 100 Unit/1 Ml Vial, 1 DOSE SC ACHS, (Reported) PER SLIDING SCALE Loperamide HCl (Loperamide) 2 Mg Capsule, 2 CAP PO Q6H for loose stools take 1 to 2 capsules after each loose bowel movement to max of 8 caps per day Nortriptyline HCl (Nortriptyline HCl) 50 Mg Capsule, 100 MG PO QHS, (Reported) Octreotide Acetate (Octreotide Acetate) 50 Mcg/1 Ml Syringe, 50 MCG INJ QMONTH, (Reported) Omeprazole (Omeprazole) 40 Mg Cap, 40 MG PO DAILY, (Reported) PT HAS BEEN FILLING DEXILANT AND OMEPRAZOLE Potassium Citrate (Potassium Citrate 10MEQ (Urocit-K)) 10 Meq Tablet.er, 10 MEQ PO BID, (Reported) Rifaximin (Xifaxan) 550 Mg Tablet, 550 MG PO BID, (Reported) MORNING AND DINNER Ropinirole HCl (Requip) 0.25 Mg Tablet, 0.25 MG PO QHS, (Reported) Spironolactone (Spironolactone) 50 Mg Tablet, 50 MG PO BID, (Reported) Scheduled PRN Alprazolam (Alprazolam) 0.5 Mg Tab, 0.5 MG PO BID PRN for ANXIETY/AGITATION, (Reported) Cyclobenzaprine HCl (Cyclobenzaprine HCl) 10 Mg Tablet, 10 MG PO TID PRN for MUSCLE SPASMS, (Reported) Diphenoxylate HCl/Atropine (Lomotil 2.5-0.025 mg Tablet) 1 Each Tablet, 1 TAB PO QID PRN for DIARRHEA, (Reported) Nitroglycerin (Nitrostat) 0.4 Mg Tab.subl, 0.4 MG SL NITRO PRN for CHEST PAIN, (Reported) Oxycodone HCl (Oxycodone HCl) 5 Mg Tablet, 5 MG PO QID PRN for PAIN, (Reported) MAY TAKE ONE OR TWO TABLETS NEEDED. 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 portal hypertensive gastropathy chronic anemia DM insulin dependent Chronic hepatic encephalopathy CKD stage 3 Hyperuricemia seconday hyperparathyroidism Obesity hyperlipidemia CAD s/p AMIs and Stents. Systolic and diastolic CHF. Echo in 2007 showed EF of 45% Hypomagnesemia Recurent falls fall and shoulder fracture in 2019 Iron deficiency Generalized anxiety GERD tubulovillous adenoma Surgical History terminal ileal resection appendectomy cholecystectomy liver biopsy Family History FATHER: , HEART FAILURE MOTHER: , HEART DISEASE, DIABETES SIBLINGS: ALIVE SON(S): ALIVE DAUGHTER(S): ALIVE 1 BROTHER(S) , 1 SISTER(S) . 1 SON(S) , 2 DAUGHTER(S) - HEALTHY. DAUGHTER-TYPE 1 DIABETES. Social History * Smoker: former Smoker Alcohol: Denies Drugs: denies A-FIB/CHADSVASC A-FIB History Current/History of A-Fib/PAF?: No Review of Systems Constitutional: Reports: Weakness, Fatigue, Lethargy; Denies: Chills, Fever, Night Sweats Eyes: Denies: Pain, Vision change ENT: Denies: Head Aches, Ear Pain, Dysphagia Skin: Denies: Rash, Lesions, Breakdown Pulmonary: Denies: Dyspnea, Cough Cardiovascular: Denies: Chest Pain, Palpitations, Orthopnea, Paroxysmal Noc. Dyspnea, Lt Headedness Gastrointestinal: Denies: Nausea, Vomiting, Abdominal Pain, Diarrhea Genitourinary: Denies: Dysuria, Frequency, Incontinence, Retention Hematologic: Denies: Bruising, Bleeding Excessively Musculoskeletal: Denies: Neck Pain, Back Pain, Joint Pain, Muscle Pain, Spasms Neurological: Reports: Weakness Physical Examination General Exam: Positive: Alert, Cooperative, No Acute Distress Eye Exam: Positive: PERRLA, Conjunctiva & lids normal, EOMI; Negative: Sclera icteric ENT Exam: Positive: Atraumatic, Mucous membr. moist/pink, Pharynx Normal Neck Exam: Positive: Supple; Negative: JVD, thyromegaly Chest Exam: Positive: Clear to auscultation, Normal air movement Heart Exam: Positive: Rate Normal, Regular Rhythm, Normal S1, Normal S2; Negative: Murmurs, Rubs Abdomen Exam: Positive: Normal bowel sounds, Soft; Negative: Tenderness, Hepatospenomegaly Extremity Exam: Positive: Normal pulses; Negative: Clubbing, Cyanosis, Edema Skin Exam: Positive: Nl turgor and temperature; Negative: Breakdown, Lesion Neuro Exam: Positive: Other (no flap) Vital Signs Vital Signs Date Time Temp Pulse Resp B/P (MAP) Pulse Ox O2 Delivery O2 Flow Rate FiO2 10/28/19 14:55 96.9 79 18 123/72 (89) 97 Room Air Laboratory Data Labs 24H Laboratory Tests 2 10/28/19 11:29: Immature Granulocyte % (Auto) 0.5, Neutrophils (%) (Auto) 64.2, Lymphocytes (%) (Auto) 22.1L, Monocytes (%) (Auto) 7.5H, Eosinophils (%) (Auto) 4.8H, Basophils (%) (Auto) 0.9, Neutrophils # (Auto) 3.7, Lymphocytes # (Auto) 1.3L, Monocytes # (Auto) 0.4, Eosinophils # (Auto) 0.3, Basophils # (Auto) 0.1, Nucleated Red Blood Cells % (auto) 0.0, Anion Gap 9, Glomerular Filtration Rate 35.3L, Calcium Level 9.3, Magnesium Level 1.0L, Total Bilirubin 1.0, Aspartate Amino Transf (AST/SGOT) 40H, Alanine Aminotransferase (ALT/SGPT) 23, Alkaline Phosphatase 171H, Ammonia 97H, Total Creatine Kinase 168, Creatine Kinase MB 4.2H, Creatine Kinase MB Relative Index 2.50, Troponin I < 0.02, Total Protein 8.2, Albumin 3.1L, Albumin/Globulin Ratio 0.61L CBC/BMP Laboratory Tests 10/28/19 11:29 Assessment/Plan Hepatic encephalopathy will check stool occult blood lactulose enema continue rifaximin hold benzodiazepine, cyclobenzaprine. KRISTIE on CKD 3 baseline looks like 1.6 to 1.8 could be due to osmotic diuresis and mild dehydration on the back ground of diuretics. patient had very high sugars yesterday. will hold diuretics give gentle hydration better sugar control. unlikely hepatorenal as does not have any ascites as per abdominal US from 2019. will check urine lytes. Will get a US to rule out obstruction. and evaluate for ascites. Anemia with iron deficiency will check fecal occult blood HH in Pm. full liquids. transfuse prn. Hypomagnesemia has chronic hypomagnesemia will replace IV would benefit from changed PPI to H2 anastacio. I will let primary team decide on this Diabetes insulin dependent will check A1c continue U 500 bid and lispro as per sliding scale Ileal carcinoid with hepatic and lympth node mets management as per outpatient has appointment at [place] on 10/30 for evaluation for a new medication now on octreotide [facility] where he had gone for a second opinion had suggested Palliative care and Hospice But patient was not amenable to that. Wnts to get evaluated for further option for treatment. GERD on PPI Generalized anxiety disorder will hold alprazolam for now Neuropathy continue nortriptiline, oxycodone CAD continue statin, coreg Restless legs ropinirole hyperuricemia allopurinol Plan / VTE VTE Prophylaxis Ordered?: Yes VJ KULKARNI MD Oct 28, 2019 16:02
[2019-10-28] MEDS: HUMULIN R U-500 KWIKPEN 500UNITS/ML 3ML SYRINGE (J1815 PER 5UNITS) SC SCH (17:30)
[2019-10-28] MEDS: NS 1,000 ML IV SCH (17:31)
[2019-10-28] MEDS: MAG SULF 1GM/100ML (MAG RUN) 1 GM in IV 1 EA IV SCH ×2 (17:31→18:53)
[2019-10-28 18:06] LABS: INR 1.34; PROTHROMBIN TIME 16.3 SECONDS (11.8-14.0)
[2019-10-28] MEDS: HumaLOG INSULIN (NovoLOG) PER UNIT SC SCH (18:06)
[2019-10-28 18:07] LABS: PARTIAL THROMBOPLASTIN TIME 34.1 SECONDS (25.0-38.4)
[2019-10-28 20:21] LABS: HEMATOCRIT 29.8 % (42.0-52.0); HEMOGLOBIN 9.4 g/dl (13.5-17.5)
[2019-10-28] MEDS ORDERED: rOPINIRole 0.25 MG TAB(REQUIP) PO SCH (21:00)
[2019-10-28] MEDS ORDERED: NORTRIPTYLINE 25 MG CAP PO SCH (21:00)
[2019-10-28] MEDS ORDERED: ATORVASTATIN 20 MG TAB PO SCH (21:00)
[2019-10-28] MEDS: PEN NEEDLE (USE WITH HUMULIN U-500 INSULIN PEN) XX SCH (21:00)
[2019-10-28] MEDS ORDERED: HumaLOG INSULIN (NovoLOG) PER UNIT SC SCH (21:00)
[2019-10-28 22:00] VITALS: BP 136/86
[2019-10-28] MEDS: CARVedilol 6.25 MG TAB PO SCH (22:41)
[2019-10-28] MEDS: rifAXIMin 550 MG TAB (XIFAXAN) PO SCH (22:41)
[2019-10-29] MEDS: NS 1,000 ML IV SCH (05:28)
[2019-10-29 06:00] VITALS: BP 141/77
[2019-10-29 06:18] LABS: BASO % 0.5 % (0.0-1.0); EOS # 0.2 10^3/uL (0.0-0.5); HEMATOCRIT 28.8 % (42.0-52.0); HEMOGLOBIN 9.1 g/dl (13.5-17.5); LYMPH # 1.5 10^3/uL (1.5-5.0); LYMPH % 25.9 % (24.0-44.0); MEAN CORPUSCULAR HEMOGLOBIN 27.6 pg (27.0-33.0); MEAN CORPUSCULAR HGB CONC 31.6 g/dl (32.0-36.5); MEAN CORPUSCULAR VOLUME 87.3 fl (80.0-96.0); MONO # 0.5 10^3/uL (0.0-0.8); MONO % 8.1 % (0.0-5.0); NEUTROPHILS # 3.5 10^3/uL (1.5-8.5); NEUTROPHILS % 61.1 % (36.0-66.0); PLATELET COUNT, AUTOMATED 115 10^3/uL (150-450); WHITE BLOOD COUNT 5.7 10^3/uL (4.0-10.0)
[2019-10-29 06:45] LABS: CALCIUM LEVEL 8.7 MG/DL (8.5-10.1); CREATININE FOR GFR 1.76 MG/DL (0.70-1.30); GLOMERULAR FILTRATION RATE 43.5 (>56); MAGNESIUM LEVEL 1.1 MG/DL (1.8-2.4); POTASSIUM SERUM 4.6 MEQ/L (3.5-5.1)
[2019-10-29] MEDS ORDERED: CALCITRIOL 0.25 MCG CAP (S0169) PO SCH (09:00)
[2019-10-29] MEDS ORDERED: allopurinoL 300 MG TAB PO SCH (09:00)
[2019-10-29] MEDS ORDERED: OMEPRAZOLE 20 MG CAP PO SCH (09:00)
[2019-10-29] MEDS: rifAXIMin 550 MG TAB (XIFAXAN) PO SCH (09:03)
[2019-10-29 09:04] VITALS: BP 141/77
[2019-10-29] MEDS: HumaLOG INSULIN (NovoLOG) PER UNIT SC SCH ×2 (09:04→12:05)
[2019-10-29] MEDS: PEN NEEDLE (USE WITH HUMULIN U-500 INSULIN PEN) XX SCH (09:04)
[2019-10-29] MEDS: CARVedilol 6.25 MG TAB PO SCH (09:04)
[2019-10-29] MEDS: HUMULIN R U-500 KWIKPEN 500UNITS/ML 3ML SYRINGE (J1815 PER 5UNITS) SC SCH (09:05)
--- NOTE | 2019-10-29 09:42 | IPNPDOC ---
Subjective Date Seen The patient was seen on 10/29/19. Subjective Chief Complaint/HPI Pt this morning without new concerns. He states that he is feeling better than yesterday. He threatened to leave AMA yest, he is anxious this morning. He is scheduled for a PET tomorrow in [place] and wants to make sure he is there. General: Denies: Fatigue Constitutional: Denies: Chills, Fever ENT: Denies: Head Aches Pulmonary: Denies: Dyspnea, Cough Cardiovascular: Denies: Chest Pain, Palpitations Gastrointestinal: Denies: Nausea, Vomiting, Abdominal Pain Neurological: Denies: Weakness Psych: Reports: Anxiety Objective Physical Examination General Exam: Positive: Alert, Cooperative, No Acute Distress Eye Exam: Negative: Sclera icteric ENT Exam: Positive: Mucous membr. moist/pink Neck Exam: Positive: Supple, thyromegaly Chest Exam: Positive: Clear to auscultation, Normal air movement Heart Exam: Positive: Rate Normal, Regular Rhythm, Normal S1, Normal S2; Negative: Murmurs Abdomen Exam: Positive: Normal bowel sounds, Soft (obese, + abd wall hernia, reducible); Negative: Tenderness, Hepatospenomegaly Extremity Exam: Negative: Edema Neuro Exam: Positive: Normal Speech Psych Exam: Positive: Mental status NL, Anxiety Assessment /Plan Problems (1) Hepatic encephalopathy Status: Acute Response to Treatment: Stable, Improving Discussed With: Nurse, Patient Problem Specific Plan: Monitor Clinically, Repeat Labs Problem Text: 10/29 Ammonia is down from 97 to 45, MS has improved, pt rec lactulose on admission, but has none ordered chronically, will add lactulose 30 mg po BID for now If US without acute findings and pt tolerates a meal, will plan to DC later today. (2) Metastatic malignant neuroendocrine tumor to liver Status: Chronic Problem Specific Plan: Monitor Clinically Problem Text: Pt has been seen in [facility] and [place], he was rec Palliative Treatment in [facility], he has another appt 10/30 in [facility] with PET scan and consideration of another treatment option. Currently on Octeotride. (3) KRISTIE (acute kidney injury) Status: Acute Response to Treatment: Improving Discussed With: Nurse, Patient Problem Specific Plan: Monitor Clinically, Repeat Labs Problem Text: Scr baseline appears to be about 1.7, but this is new in the last several months, 06/18 renal US without acute findings, will repeat today. (4) DM2 (diabetes mellitus, type 2) Status: Chronic Problem Text: h/o noncompliance with mgmt. Currently on U 500 BID and lispro, monitor. (5) Morbid obesity Status: Chronic Response to Treatment: Stable (6) CKD (chronic kidney disease) stage 3, GFR 30-59 ml/min Status: Chronic Problem Text: See above. Plan/VTE VTE Prophylaxis Ordered?: Yes VS, I&O, 24H, Fishbone Vital Signs/I&O Vital Signs Date Time Temp Pulse Resp B/P (MAP) Pulse Ox O2 Delivery O2 Flow Rate FiO2 10/29/19 09:04 87 141/77 10/29/19 06:00 97.2 15 95 Room Air I&O- Last 24 Hours up to 6 AM 10/29/19 06:00 Intake Total 1700 ml Output Total 0 ml Balance 1700 ml Laboratory Data 24H LABS Laboratory Tests 2 10/28/19 11:29: Immature Granulocyte % (Auto) 0.5, Neutrophils (%) (Auto) 64.2, Lymphocytes (%) (Auto) 22.1L, Monocytes (%) (Auto) 7.5H, Eosinophils (%) (Auto) 4.8H, Basophils (%) (Auto) 0.9, Neutrophils # (Auto) 3.7, Lymphocytes # (Auto) 1.3L, Monocytes # (Auto) 0.4, Eosinophils # (Auto) 0.3, Basophils # (Auto) 0.1, Nucleated Red Blood Cells % (auto) 0.0, Anion Gap 9, Glomerular Filtration Rate 35.3L, Estimated Mean Plasma Glucose 260H, Hemoglobin A1c 10.7, Calcium Level 9.3, Magnesium Level 1.0L, Total Bilirubin 1.0, Aspartate Amino Transf (AST/SGOT) 40H, Alanine Aminotransferase (ALT/SGPT) 23, Alkaline Phosphatase 171H, Ammonia 97H, Total Creatine Kinase 168, Creatine Kinase MB 4.2H, Creatine Kinase MB Relative Index 2.50, Troponin I < 0.02, Total Protein 8.2, Albumin 3.1L, Albumin/Globulin Ratio 0.61L 10/28/19 16:23: Bedside Glucose (Misc Panel) 295H 10/28/19 17:39: Prothrombin Time 16.3H, Prothromb Time International Ratio 1.34, Activated Partial Thromboplast Time 34.1 10/28/19 21:22: Bedside Glucose (Misc Panel) 298H 10/29/19 05:44: Immature Granulocyte % (Auto) 0.4, Neutrophils (%) (Auto) 61.1, Lymphocytes (%) (Auto) 25.9, Monocytes (%) (Auto) 8.1H, Eosinophils (%) (Auto) 4.0H, Basophils (%) (Auto) 0.5, Neutrophils # (Auto) 3.5, Lymphocytes # (Auto) 1.5, Monocytes # (Auto) 0.5, Eosinophils # (Auto) 0.2, Basophils # (Auto) 0.0, Nucleated Red Blood Cells % (auto) 0.0, Anion Gap 10, Glomerular Filtration Rate 43.5L, Calcium Level 8.7, Magnesium Level 1.1L, Ammonia 45H CBC/BMP Laboratory Tests 10/28/19 11:29 10/28/19 20:03 10/29/19 05:44 Microbiology Microbiology 10/29/19 Stool Occult Blood (COY) - Final, Complete ZORAN TORRES PA-C Oct 29, 2019 09:42
--- NOTE | 2019-10-29 12:06 | REP ---
RENAL ULTRASOUND: Real-time sonographic evaluation of the kidneys performed. The kidneys are normal size and echotexture, right kidney measuring 10.8 x 5.4 x 5.2 cm and left kidney 12.8 x 5.1 x 5.7 cm. There is no renal mass, hydronephrosis or nephrolithiasis. IMPRESSION: Negative renal ultrasound. Electronically Signed by Yfn Yoon MD 10/30/2019 12:28 P
--- NOTE | 2019-10-29 12:10 | REP ---
BLADDER ULTRASOUND: Real-time sonographic evaluation of the urinary bladder performed. Bladder is mild to moderately distended measuring 1.9 x 8.7 x 8.1 cm, total volume is 548 mL. Postvoid residual is 143 mL, 26% of the original volume. No mass or calculus is seen. There are bilateral ureteral jets in the urinary bladder with Doppler color evaluation. IMPRESSION: Unremarkable bladder ultrasound with mild postvoid residual. Electronically Signed by Yfn Yoon MD 10/30/2019 12:29 P
[2019-10-29 14:00] VITALS: BP 130/72
--- NOTE | 2019-10-29 21:28 | DSES ---
DATE OF ADMISSION: 10/28/2019 DATE OF DISCHARGE: 10/29/2019 DISCHARGE DIAGNOSES: 1. Hepatic encephalopathy, mild. 2. Dehydration, mild. 3. End-stage liver disease with recurrent hepatic encephalopathy secondary to primary biliary cirrhosis (PBC) and metastatic neuroendocrine (NET) to the liver. 4. Combined immunodeficiency (PRINCE). 5. Congestive heart failure (CHF), chronic, secondary to combined systolic and diastolic dysfunction. 6. Chronic kidney disease stage IIIB, acute kidney injury (KRISTIE) stage 1, baseline creatinine of 1.6, GFR of 40.7. 7. Diabetes mellitus type 2, insulin dependent. 8. Gastroesophageal reflux disease (GERD). 9. 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 10. Gout. 11. Diarrhea, chronic. 12. Restless leg syndrome. 13. Chronic pain syndrome. 14. Insomnia, multifactorial. HISTORY OF PRESENT ILLNESS: The patient was admitted to [facility] ([facility]) medical/surgical bed given increased confusion and lethargy over the 3 days prior to admission. His spironolactone and furosemide were held and he was given IV hydration such that throughout admission he was up about 2.5 liters. By discharge, his ammonia level had decreased from 9745 on the day of discharge and his BUN and creatinine were 30 and 2.2 on the day of discharge. While hospitalized he had a normal unremarkable bilateral renal ultrasound and bladder ultrasound done secondary to acute kidney injury (KRISTIE). The patient felt back to baseline on day of discharge and requested discharge specifically given that he has a Dotatate PET scheduled for 10/30/2019 at [facility] in [place] to evaluate the burden of his NET tumor to see if he would be a candidate for Peptide Receptor Radionuclide Therapy (PRRT) using Lutathera or if chemotherapy will be used. The patient was discharged to home on his regular medications including his current U-500 40 units twice a day with sliding scale, Humalog before food and three times a day for which he has had loose control without hypoglycemia, specifically his A1c from 10/28/2019 was 10.7. On discharge, he appeared euvolemic but he continues to have his daily chronic loose bowel movements 2-3 times a day, therefore he was advised to hold his furosemide for now, to check morning dry weights, and to restart the furosemide if they increase by three pounds or more. He will followup with his primary care provider (PCP) on 11/02/2019, and bring before food and three times a day blood sugars and twice a day blood pressures.
== END 2019-10-29 16:14 | disposition home or self-care (01) | DRG 442 ==
LOC: M ED 10:54 → M ED INP 14:20 → ENRESERVDT 14:50 → ENRESERVTM 14:50 → M MSPAV 15:37
PROVIDERS: ADMIT Internal Medicine Nephrology; ATTEND Family Medicine
DX: K72.90 Hepatic failure, unspecified without coma (principal); C78.7 Secondary malignant neoplasm of liver and intrahepatic bile duct; I50.42 Chronic combined systolic (congestive) and diastolic (congestive) heart failure; N17.9 Acute kidney failure, unspecified; C17.2 Malignant neoplasm of ileum; C77.9 Secondary and unspecified malignant neoplasm of lymph node, unspecified; N25.81 Secondary hyperparathyroidism of renal origin; K21.9 Gastro-esophageal reflux disease without esophagitis; E86.0 Dehydration; K74.3 Primary biliary cirrhosis; N18.3 Chronic kidney disease, stage 3 (moderate); E11.22 Type 2 diabetes mellitus with diabetic chronic kidney disease; Z79.4 Long term (current) use of insulin; E11.65 Type 2 diabetes mellitus with hyperglycemia; Z88.8 Allergy status to other drugs, medicaments and biological substances; Z79.899 Other long term (current) drug therapy; D63.0 Anemia in neoplastic disease; E79.0 Hyperuricemia without signs of inflammatory arthritis and tophaceous disease; Z95.1 Presence of aortocoronary bypass graft; R29.6 Repeated falls; E83.42 Hypomagnesemia; F41.1 Generalized anxiety disorder; Z87.891 Personal history of nicotine dependence; G25.81 Restless legs syndrome; E66.01 Morbid (severe) obesity due to excess calories; Z68.39 Body mass index [BMI] 39.0-39.9, adult

== ENCOUNTER → 2019-11-12 | Outpatient (CLI) | payer MEDICARE, MEDICAID ==
[~2019-11-12] MED LIST changes: +CARV6.25 PO; +CYCL10TA PO; +REQU1TAB14 PO
[2019-11-12 12:03] LABS: BASO % 0.6 % (0.0-1.0); EOS # 0.2 10^3/uL (0.0-0.5); EOS % 2.5 % (0.0-3.0); HEMATOCRIT 28.8 % (42.0-52.0); HEMOGLOBIN 8.8 g/dl (13.5-17.5); LYMPH # 1.6 10^3/uL (1.5-5.0); LYMPH % 23.5 % (24.0-44.0); MEAN CORPUSCULAR HEMOGLOBIN 26.7 pg (27.0-33.0); MEAN CORPUSCULAR HGB CONC 30.6 g/dl (32.0-36.5); MEAN CORPUSCULAR VOLUME 87.5 fl (80.0-96.0); MONO # 0.5 10^3/uL (0.0-0.8); MONO % 7.9 % (0.0-5.0); NEUTROPHILS # 4.4 10^3/uL (1.5-8.5); NEUTROPHILS % 65.1 % (36.0-66.0); PLATELET COUNT, AUTOMATED 148 10^3/uL (150-450); RED BLOOD COUNT 3.29 10^6/uL (4.30-6.10); WHITE BLOOD COUNT 6.8 10^3/uL (4.0-10.0)
[2019-11-12 12:34] LABS: ALBUMIN 2.8 GM/DL (3.2-5.2); BILIRUBIN,TOTAL 1.3 MG/DL (0.2-1.0); CALCIUM LEVEL 8.5 MG/DL (8.5-10.1); CREATININE FOR GFR 1.66 MG/DL (0.70-1.30); GLOMERULAR FILTRATION RATE 46.5 (>56); POTASSIUM SERUM 4.4 MEQ/L (3.5-5.1); TOTAL PROTEIN 7.5 GM/DL (6.4-8.2)
== END ==
LOC: M PLALAB 10:46
PROVIDERS: ATTEND Physician Assistant Medical
DX: R11.2 Nausea with vomiting, unspecified (principal)

== ENCOUNTER → 2019-11-18 | Outpatient (CLI) | payer MEDICARE ==
[2019-11-18 14:13] LABS: BASO % 0.6 % (0.0-1.0); EOS # 0.3 10^3/uL (0.0-0.5); EOS % 4.9 % (0.0-3.0); HEMATOCRIT 27.6 % (42.0-52.0); HEMOGLOBIN 8.7 g/dl (13.5-17.5); LYMPH # 1.5 10^3/uL (1.5-5.0); LYMPH % 29.7 % (24.0-44.0); MEAN CORPUSCULAR HEMOGLOBIN 27.1 pg (27.0-33.0); MEAN CORPUSCULAR HGB CONC 31.5 g/dl (32.0-36.5); MONO # 0.5 10^3/uL (0.0-0.8); MONO % 8.7 % (0.0-5.0); NEUTROPHILS # 2.9 10^3/uL (1.5-8.5); NEUTROPHILS % 55.7 % (36.0-66.0); PLATELET COUNT, AUTOMATED 131 10^3/uL (150-450); RED BLOOD COUNT 3.21 10^6/uL (4.30-6.10); WHITE BLOOD COUNT 5.2 10^3/uL (4.0-10.0)
== END ==
LOC: M PLALAB 11:51
PROVIDERS: ATTEND Physician Assistant Medical
DX: D50.0 Iron deficiency anemia secondary to blood loss (chronic) (principal)
CPT/HCPCS: 36415; 85025; 86850; 86900; 86901; 86920; G0463

== ENCOUNTER 2019-11-19 10:57 | Outpatient (CLI) | payer MEDICARE ==
[~2019-11-19] VITALS: Ht 182.9 cm; Wt 131.0 kg
[2019-11-19] VITALS (8 sets, daily range): BP systolic 110–128; BP diastolic 58–73
[2019-11-19] MEDS ORDERED: ACETAMINOPHEN 325 MG TAB PO ONE (12:00)
[2019-11-19] MEDS ORDERED: diphenhydrAMINE 25 MG CAP PO ONE (12:00)
[2019-11-19] MEDS ORDERED: FUROSEMIDE 40 MG/4 ML VIAL (J1940) As Ordered ONE (13:56)
[2019-11-19] MEDS ORDERED: FUROSEMIDE 40 MG/4 ML VIAL (J1940) IV ONE (14:00)
== END 2019-11-19 16:45 | disposition home or self-care (01) ==
LOC: M INFU 10:57
PROVIDERS: ATTEND Physician Assistant Medical
DX: D50.9 Iron deficiency anemia, unspecified (principal)
CPT/HCPCS: 36430; 96374; J1940; P9016

== ENCOUNTER → 2019-12-05 | Outpatient (CLI) | payer MEDICARE ==
--- NOTE | 2019-12-06 06:55 | REP ---
Left rib series: Five views including PA chest. History: Contusion. Findings: PA chest radiograph shows no evidence of pneumothorax or hydrothorax. Mediastinum is not widened. Heart is not enlarged. Right hemidiaphragm remains slightly elevated, unchanged from the July 29, 2019 prior chest x-ray. No infiltrate is seen. Multiple views of the left ribcage demonstrate no evidence of acute rib fracture or bony destructive lesion. There is evidence of an old healed fracture involving the left lateral 10th rib. This is unchanged from the comparison radiograph. Impression: No acute rib fracture seen. No active disease on PA chest x-ray. Electronically Signed by Jamel Tristan MD 12/06/2019 07:48 A
== END ==
LOC: M WUC 15:45
PROVIDERS: ATTEND Physician Assistant
DX: S20.212A Contusion of left front wall of thorax, initial encounter (principal); X58.XXXA Exposure to other specified factors, initial encounter; Y93.9 Activity, unspecified; Y92.9 Unspecified place or not applicable

== ENCOUNTER → 2020-03-29 | Outpatient (CLI) | payer MEDICARE, MEDICAID ==
[~2020-03-29] MED LIST changes: +CYCL-707 PO; -CYCL10TA PO; -LACT10SO29 PO; +LACT20EL PO; +METO5TA PO
[2020-03-29 13:19] LABS: APPEARANCE, URINE CLEAR (CLEAR); BACTERIA, URINE AUTO NEGATIVE (NEGATIVE); BILIRUBIN, URINE AUTO NEGATIVE (NEGATIVE); BLOOD, URINE BLOOD NEGATIVE (NEGATIVE); COLOR, URINE YELLOW (YELLOW); GLUCOSE, URINE (UA) AUTO NEGATIVE (NEGATIVE); KETONE, URINE AUTO NEGATIVE (NEGATIVE); LEUKOCYTE ESTERASE, URINE AUTO NEGATIVE (NEGATIVE); NITRITE, URINE AUTO NEGATIVE (NEGATIVE); PROTEIN, URINE AUTO NEGATIVE (NEGATIVE); RBC, URINE AUTO 1 /HPF (0-3); SQUAMOUS EPITHELIAL CELL UR AU 0 /HPF (0-6); UROBILINOGEN, URINE AUTO 0.2 mg/dL (0.0-2.0); WBC, URINE AUTO 1 /HPF (0-3)
== END ==
LOC: M WUC 10:06
PROVIDERS: ATTEND Physician Assistant Medical
DX: R30.0 Dysuria (principal)

== ENCOUNTER → 2020-04-05 | Outpatient (REF) | payer MEDICARE, MEDICAID ==
[~2020-04-05] MED LIST changes: +AMOX500T2 PO; +HYDR-3363 PO; -PROC5TA PO; +PROC5TAB57 PO
[2020-04-05 13:38] LABS: ALBUMIN 2.6 GM/DL (3.2-5.2); BILIRUBIN,TOTAL 0.7 MG/DL (0.2-1.0); CALCIUM LEVEL 8.8 MG/DL (8.5-10.1); CREATININE FOR GFR 1.41 MG/DL (0.70-1.30); POTASSIUM SERUM 4.3 MEQ/L (3.5-5.1); TOTAL PROTEIN 7.2 GM/DL (6.4-8.2)
[2020-04-05 13:39] LABS: CREATININE, URINE 60.9 MG/DL
[2020-04-05 14:18] LABS: CREATININE 24 HOUR, URINE 1035.3 MG/24HR (950-2500)
== END ==
LOC: M ONCM 11:36
PROVIDERS: ATTEND Radiology Diagnostic Radiology
DX: Z53.9 Procedure and treatment not carried out, unspecified reason (principal)

== ENCOUNTER → 2020-04-26 | Outpatient (REF) | payer MEDICARE, MEDICAID ==
[2020-05-20 11:44] LABS: BASO # 0.1 10^3/uL (0.0-0.2); BASO % 0.9 % (0.0-1.0); EOS # 0.3 10^3/uL (0.0-0.5); EOS % 5.6 % (0.0-3.0); HEMATOCRIT 28.3 % (42.0-52.0); HEMOGLOBIN 8.4 g/dl (13.5-17.5); LYMPH # 1.5 10^3/uL (1.5-5.0); LYMPH % 26.6 % (24.0-44.0); MEAN CORPUSCULAR HEMOGLOBIN 25.1 pg (27.0-33.0); MEAN CORPUSCULAR HGB CONC 29.7 g/dl (32.0-36.5); MEAN CORPUSCULAR VOLUME 84.7 fl (80.0-96.0); MONO # 0.6 10^3/uL (0.0-0.8); MONO % 11.6 % (0.0-5.0); NEUTROPHILS % 54.8 % (36.0-66.0); PLATELET COUNT, AUTOMATED 137 10^3/uL (150-450); RED BLOOD COUNT 3.34 10^6/uL (4.30-6.10); WHITE BLOOD COUNT 5.5 10^3/uL (4.0-10.0)
[2020-05-31 13:33] LABS: ALBUMIN 2.7 GM/DL (3.2-5.2); BILIRUBIN,TOTAL 0.4 MG/DL (0.2-1.0); CALCIUM LEVEL 8.3 MG/DL (8.5-10.1); CREATININE FOR GFR 1.42 MG/DL (0.70-1.30); GLOMERULAR FILTRATION RATE 55.5 (>56); POTASSIUM SERUM 4.5 MEQ/L (3.5-5.1); TOTAL PROTEIN 6.9 GM/DL (6.4-8.2)
== END ==
LOC: M WUC 14:11
PROVIDERS: ATTEND Nurse Practitioner
DX: D3A.012 Benign carcinoid tumor of the ileum (principal)

== ENCOUNTER → 2020-05-16 | Outpatient (REF) | payer MEDICARE | LOC: M LAB REF 14:35 | PROVIDERS: ATTEND Physician Assistant | DX: N39.0 Urinary tract infection, site not specified (principal) ==

== ENCOUNTER → 2020-06-22 | Outpatient (CLI) | payer MEDICARE ==
[2020-06-22 16:37] LABS: BASO % 0.4 % (0.0-1.0); EOS # 0.2 10^3/uL (0.0-0.5); EOS % 4.1 % (0.0-3.0); HEMATOCRIT 32.2 % (42.0-52.0); HEMOGLOBIN 10.4 g/dl (13.5-17.5); LYMPH # 1.1 10^3/uL (1.5-5.0); LYMPH % 22.9 % (24.0-44.0); MEAN CORPUSCULAR HEMOGLOBIN 28.5 pg (27.0-33.0); MEAN CORPUSCULAR HGB CONC 32.3 g/dl (32.0-36.5); MEAN CORPUSCULAR VOLUME 88.2 fl (80.0-96.0); MONO # 0.5 10^3/uL (0.0-0.8); MONO % 9.4 % (0.0-5.0); NEUTROPHILS # 3.1 10^3/uL (1.5-8.5); NEUTROPHILS % 62.8 % (36.0-66.0); PLATELET COUNT, AUTOMATED 115 10^3/uL (150-450); RED BLOOD COUNT 3.65 10^6/uL (4.30-6.10); WHITE BLOOD COUNT 4.9 10^3/uL (4.0-10.0)
[2020-06-22 16:39] LABS: CALCIUM LEVEL 9.3 MG/DL (8.5-10.1); CREATININE FOR GFR 1.35 MG/DL (0.70-1.30); GLOMERULAR FILTRATION RATE 58.9 (>56); POTASSIUM SERUM 4.2 MEQ/L (3.5-5.1)
[2020-06-22 16:40] LABS: BILIRUBIN,TOTAL 1.1 MG/DL (0.2-1.0); TOTAL PROTEIN 7.4 GM/DL (6.4-8.2)
== END ==
LOC: M WUC 12:25
PROVIDERS: ATTEND Nurse Practitioner
DX: D3A.012 Benign carcinoid tumor of the ileum (principal)

== ENCOUNTER → 2020-08-18 | Outpatient (CLI) | payer MEDICARE, MEDICAID ==
[2020-08-18 19:42] LABS: BASO % 0.5 % (0.0-1.0); EOS # 0.2 10^3/uL (0.0-0.5); EOS % 4.3 % (0.0-3.0); HEMATOCRIT 31.8 % (42.0-52.0); HEMOGLOBIN 10.1 g/dl (13.5-17.5); LYMPH # 0.7 10^3/uL (1.5-5.0); LYMPH % 17.6 % (24.0-44.0); MEAN CORPUSCULAR HEMOGLOBIN 30.2 pg (27.0-33.0); MEAN CORPUSCULAR HGB CONC 31.8 g/dl (32.0-36.5); MEAN CORPUSCULAR VOLUME 95.2 fl (80.0-96.0); MONO # 0.5 10^3/uL (0.0-0.8); MONO % 11.6 % (0.0-5.0); NEUTROPHILS # 2.7 10^3/uL (1.5-8.5); NEUTROPHILS % 65.3 % (36.0-66.0); RED BLOOD COUNT 3.34 10^6/uL (4.30-6.10); WHITE BLOOD COUNT 4.2 10^3/uL (4.0-10.0)
[2020-08-18 19:45] LABS: BILIRUBIN,TOTAL 0.9 MG/DL (0.2-1.0); CALCIUM LEVEL 8.2 MG/DL (8.5-10.1); CREATININE FOR GFR 1.33 MG/DL (0.70-1.30); GLOMERULAR FILTRATION RATE 59.9 (>56); POTASSIUM SERUM 4.2 MEQ/L (3.5-5.1); TOTAL PROTEIN 7.4 GM/DL (6.4-8.2)
[2020-08-18 19:51] LABS: PLATELET COUNT, AUTOMATED 84 10^3/uL (150-450)
== END ==
LOC: M WUC 16:30
PROVIDERS: ATTEND Nurse Practitioner
DX: D3A.012 Benign carcinoid tumor of the ileum (principal)

== ENCOUNTER → 2020-09-09 | Outpatient (REF) | payer MEDICARE, MEDICAID ==
[2020-09-09 19:05] LABS: APPEARANCE, URINE CLEAR (CLEAR); BACTERIA, URINE AUTO NEGATIVE (NEGATIVE); BILIRUBIN, URINE AUTO NEGATIVE (NEGATIVE); BLOOD, URINE BLOOD NEGATIVE (NEGATIVE); COLOR, URINE YELLOW (YELLOW); GLUCOSE, URINE (UA) AUTO NEGATIVE (NEGATIVE); KETONE, URINE AUTO NEGATIVE (NEGATIVE); LEUKOCYTE ESTERASE, URINE AUTO NEGATIVE (NEGATIVE); NITRITE, URINE AUTO NEGATIVE (NEGATIVE); PROTEIN, URINE AUTO 1+ mg/dL (NEGATIVE); RBC, URINE AUTO 0 /HPF (0-3); SQUAMOUS EPITHELIAL CELL UR AU 0 /HPF (0-6); UROBILINOGEN, URINE AUTO 0.2 mg/dL (0.0-2.0); WBC, URINE AUTO 1 /HPF (0-3)
== END ==
LOC: M SFHCPLAZ 17:04
PROVIDERS: ATTEND Physician Assistant Medical
DX: R30.0 Dysuria (principal); R43.8 Other disturbances of smell and taste; Z20.828 Contact with and (suspected) exposure to other viral communicable diseases
CPT/HCPCS: 81001; 87086; G0463; U0003

== ENCOUNTER → 2020-10-10 | Outpatient (REF) | payer MEDICARE, MEDICAID ==
[2020-10-10 12:00] LABS: BASO % 0.5 % (0.0-1.0); EOS # 0.2 10^3/uL (0.0-0.5); EOS % 4.1 % (0.0-3.0); HEMATOCRIT 29.5 % (42.0-52.0); HEMOGLOBIN 9.8 g/dl (13.5-17.5); LYMPH # 0.6 10^3/uL (1.5-5.0); LYMPH % 14.2 % (24.0-44.0); MEAN CORPUSCULAR HEMOGLOBIN 31.3 pg (27.0-33.0); MEAN CORPUSCULAR HGB CONC 33.2 g/dl (32.0-36.5); MEAN CORPUSCULAR VOLUME 94.2 fl (80.0-96.0); MONO # 0.4 10^3/uL (0.0-0.8); MONO % 10.9 % (0.0-5.0); NEUTROPHILS # 2.7 10^3/uL (1.5-8.5); NEUTROPHILS % 69.8 % (36.0-66.0); RED BLOOD COUNT 3.13 10^6/uL (4.30-6.10); WHITE BLOOD COUNT 3.9 10^3/uL (4.0-10.0)
[2020-10-10 12:03] LABS: PLATELET COUNT, AUTOMATED 66 10^3/uL (150-450)
[2020-10-10 12:34] LABS: ALBUMIN 3.1 GM/DL (3.2-5.2); BILIRUBIN,TOTAL 0.7 MG/DL (0.2-1.0); CREATININE FOR GFR 1.93 MG/DL (0.70-1.30); POTASSIUM SERUM 5.8 MEQ/L (3.5-5.1); TOTAL PROTEIN 7.3 GM/DL (6.4-8.2)
== END ==
LOC: M WUC 11:25
PROVIDERS: ATTEND Nurse Practitioner
DX: D3A.012 Benign carcinoid tumor of the ileum (principal); C22.9 Malignant neoplasm of liver, not specified as primary or secondary; E11.9 Type 2 diabetes mellitus without complications

== ENCOUNTER → 2020-10-10 | Outpatient (REF) | payer MEDICARE, MEDICAID ==
[2020-10-10 15:51] LABS: HEMOGLOBIN A1c 8.5 %
== END ==
LOC: M WUC 11:29
PROVIDERS: ATTEND Physician Assistant Medical
DX: E11.9 Type 2 diabetes mellitus without complications (principal)

== ENCOUNTER → 2020-10-10 | Outpatient (REF) | payer MEDICARE, MEDICAID ==
[2020-10-10 11:57] LABS: BASO % 0.8 % (0.0-1.0); EOS # 0.2 10^3/uL (0.0-0.5); EOS % 4.1 % (0.0-3.0); HEMATOCRIT 29.5 % (42.0-52.0); HEMOGLOBIN 9.9 g/dl (13.5-17.5); LYMPH # 0.5 10^3/uL (1.5-5.0); LYMPH % 13.8 % (24.0-44.0); MEAN CORPUSCULAR HEMOGLOBIN 31.7 pg (27.0-33.0); MEAN CORPUSCULAR HGB CONC 33.6 g/dl (32.0-36.5); MEAN CORPUSCULAR VOLUME 94.6 fl (80.0-96.0); MONO # 0.4 10^3/uL (0.0-0.8); MONO % 11.4 % (0.0-5.0); NEUTROPHILS # 2.6 10^3/uL (1.5-8.5); NEUTROPHILS % 69.6 % (36.0-66.0); RED BLOOD COUNT 3.12 10^6/uL (4.30-6.10); WHITE BLOOD COUNT 3.7 10^3/uL (4.0-10.0)
[2020-10-10 12:00] LABS: PLATELET COUNT, AUTOMATED 66 10^3/uL (150-450)
== END ==
LOC: M WUC 11:27
PROVIDERS: ATTEND Internal Medicine Medical Oncology
DX: C22.9 Malignant neoplasm of liver, not specified as primary or secondary (principal)

== ENCOUNTER → 2020-10-11 | Outpatient (CLI) | payer MEDICAID, MEDICARE, OTHER ==
--- NOTE | 2020-10-11 10:27 | REP ---
INDICATION: SPLENOMAGLY COMPARISON: 05/28/2019 TECHNIQUE: Real time shaffer scale ultrasound examination using curved array transducer. FINDINGS: Left kidney is normal and measures 12.6 x 4.9 x 5.4 cm. Spleen is mildly enlarged and measures 14.3 x 5.8 x 14.7 cm (SI: 1219) without focal splenic lesion identified. No ascites in the visualized left upper quadrant. IMPRESSION: Splenomegaly without focal splenic lesion identified. <Electronically signed by Janak Silva > 10/11/20 [id number]
== END ==
LOC: M RAD 09:49
PROVIDERS: ATTEND Internal Medicine Medical Oncology
DX: R16.1 Splenomegaly, not elsewhere classified (principal)

== ENCOUNTER → 2020-10-13 | Outpatient (CLI) | payer MEDICARE ==
[2020-10-13 14:53] LABS: BASO % 0.7 % (0.0-1.0); EOS # 0.2 10^3/uL (0.0-0.5); EOS % 4.1 % (0.0-3.0); HEMATOCRIT 32.3 % (42.0-52.0); HEMOGLOBIN 10.6 g/dl (13.5-17.5); LYMPH % 17.9 % (24.0-44.0); MEAN CORPUSCULAR HEMOGLOBIN 32.2 pg (27.0-33.0); MEAN CORPUSCULAR HGB CONC 32.8 g/dl (32.0-36.5); MEAN CORPUSCULAR VOLUME 98.2 fl (80.0-96.0); MONO # 0.5 10^3/uL (0.0-0.8); MONO % 9.8 % (0.0-5.0); NEUTROPHILS # 3.6 10^3/uL (1.5-8.5); NEUTROPHILS % 66.9 % (36.0-66.0); RED BLOOD COUNT 3.29 10^6/uL (4.30-6.10); WHITE BLOOD COUNT 5.4 10^3/uL (4.0-10.0)
[2020-10-13 15:01] LABS: PLATELET COUNT, AUTOMATED 85 10^3/uL (150-450)
[2020-10-13 15:23] LABS: ALBUMIN 3.3 GM/DL (3.2-5.2); BILIRUBIN,TOTAL 0.8 MG/DL (0.2-1.0); CALCIUM LEVEL 8.8 MG/DL (8.5-10.1); CREATININE FOR GFR 1.98 MG/DL (0.70-1.30); GLOMERULAR FILTRATION RATE 37.8 (>56); POTASSIUM SERUM 5.3 MEQ/L (3.5-5.1); TOTAL PROTEIN 7.6 GM/DL (6.4-8.2)
[2020-10-13 15:46] LABS: HEMOGLOBIN A1c 8.3 %
== END ==
LOC: M PLALAB 13:29
PROVIDERS: ATTEND Physician Assistant Medical
DX: N18.9 Chronic kidney disease, unspecified (principal); E11.9 Type 2 diabetes mellitus without complications

== ENCOUNTER → 2020-10-17 | Outpatient (REF) | payer MEDICARE ==
[2020-10-17 16:10] LABS: ALBUMIN 3.1 GM/DL (3.2-5.2); BILIRUBIN,TOTAL 0.9 MG/DL (0.2-1.0); CALCIUM LEVEL 9.1 MG/DL (8.5-10.1); CREATININE FOR GFR 1.81 MG/DL (0.70-1.30); POTASSIUM SERUM 5.3 MEQ/L (3.5-5.1); TOTAL PROTEIN 7.5 GM/DL (6.4-8.2)
== END ==
LOC: M SFHCPLAZ 13:04
PROVIDERS: ATTEND Physician Assistant Medical
DX: N18.9 Chronic kidney disease, unspecified (principal)

== ENCOUNTER → 2021-01-05 | Outpatient (CLI) | payer OTHER ==
--- NOTE | 2021-01-05 16:36 | REP ---
INDICATION: LOW BACK PAIN. COMPARISON: None. TECHNIQUE: AP lateral and oblique views of the lumbar spine obtained. FINDINGS: No evidence of fracture or malalignment. Degenerative disc disease is notable at the L4-5 and L5-S1 levels with vacuum disc phenomenon. Oblique views without evidence of osseous foraminal narrowing. There is atherosclerotic change of the aorta and distal vasculature. IMPRESSION: No acute findings. Degenerative disc disease notable at the L4-5 and L5-S1 levels. If symptoms persist, MRI recommended for further evaluation. <Electronically signed by Jack Dean > 01/05/21 [id number]
== END ==
LOC: M WUC 14:42
PROVIDERS: ATTEND Internal Medicine Medical Oncology
DX: M51.36 Other intervertebral disc degeneration, lumbar region (principal); M51.37 Other intervertebral disc degeneration, lumbosacral region; M54.5 Low back pain

== ENCOUNTER → 2021-02-07 | Outpatient (REF) | payer OTHER | LOC: M LAB REF 11:48 | PROVIDERS: ATTEND Internal Medicine Gastroenterology | DX: R19.7 Diarrhea, unspecified (principal) ==

== ENCOUNTER → 2021-02-22 | Outpatient (REF) | payer OTHER ==
[2021-02-22 14:00] LABS: BASO % 0.5 % (0.0-1.0); EOS # 0.1 10^3/uL (0.0-0.5); HEMATOCRIT 28.1 % (42.0-52.0); HEMOGLOBIN 9.3 g/dl (13.5-17.5); LYMPH # 0.8 10^3/uL (1.5-5.0); MEAN CORPUSCULAR HEMOGLOBIN 33.5 pg (27.0-33.0); MEAN CORPUSCULAR HGB CONC 33.1 g/dl (32.0-36.5); MEAN CORPUSCULAR VOLUME 101.1 fl (80.0-96.0); MONO # 0.3 10^3/uL (0.0-0.8); MONO % 8.6 % (2.0-8.0); NEUTROPHILS # 2.7 10^3/uL (1.5-8.5); NEUTROPHILS % 68.4 % (36.0-66.0); RED BLOOD COUNT 2.78 10^6/uL (4.30-6.10)
[2021-02-22 14:07] LABS: PLATELET COUNT, AUTOMATED 78 10^3/uL (150-450)
[2021-02-22 14:45] LABS: HEMOGLOBIN A1c 8.8 %
== END ==
LOC: M SFHCPLAZ 10:35
PROVIDERS: ATTEND Physician Assistant Medical
DX: C7A.012 Malignant carcinoid tumor of the ileum (principal); E11.9 Type 2 diabetes mellitus without complications

== ENCOUNTER → 2021-04-07 | Outpatient (REF) | payer OTHER ==
[~2021-04-07] MED LIST changes: +OMEP40CA4 PO; -OMEP40CA97 PO; -OXYC1TAB15 PO; +OXYC7.5T3 PO
[2021-04-07 19:30] LABS: APPEARANCE, URINE CLEAR (CLEAR); BACTERIA, URINE AUTO 1+ (NEGATIVE); BILIRUBIN, URINE AUTO NEGATIVE (NEGATIVE); BLOOD, URINE BLOOD NEGATIVE (NEGATIVE); COLOR, URINE AMBER (YELLOW); GLUCOSE, URINE (UA) AUTO 1+ mg/dL (NEGATIVE); KETONE, URINE AUTO NEGATIVE (NEGATIVE); LEUKOCYTE ESTERASE, URINE AUTO NEGATIVE (NEGATIVE); MUCUS, URINE SMALL (NEGATIVE); NITRITE, URINE AUTO POSITIVE (NEGATIVE); PROTEIN, URINE AUTO NEGATIVE (NEGATIVE); RBC, URINE AUTO 1 /HPF (0-3); SQUAMOUS EPITHELIAL CELL UR AU 1 /HPF (0-6); WBC, URINE AUTO 1 /HPF (0-3)
== END ==
LOC: M SFHCPLAZ 17:09
PROVIDERS: ATTEND Physician Assistant Medical
DX: R30.0 Dysuria (principal)

== ENCOUNTER → 2021-05-15 | Outpatient (CLI) | payer OTHER ==
[~2021-05-15] MED LIST changes: +ALLO300T2 PO; +NOVOINJ SC; +ROPI0.253 PO
[2021-05-15 15:51] LABS: CALCIUM LEVEL 8.5 MG/DL (8.5-10.1); CREATININE FOR GFR 1.56 MG/DL (0.70-1.30); GLOMERULAR FILTRATION RATE 49.6 (>56); MAGNESIUM LEVEL 1.1 MG/DL (1.8-2.4); POTASSIUM SERUM 5.9 MEQ/L (3.5-5.1)
== END ==
LOC: M PLALAB 13:38
PROVIDERS: ATTEND Physician Assistant Medical
DX: N17.1 Acute kidney failure with acute cortical necrosis (principal)

== ENCOUNTER → 2021-05-19 | Outpatient (REF) | payer OTHER ==
[~2021-05-19] MED LIST changes: +ALLO100T PO; +FURO40TA2 PO; +ONDA4TAB6 PO; +OXYC10TA12 PO; +XANA1TAB2 PO
== END ==
LOC: M SFHCPLAZ 17:27
PROVIDERS: ATTEND Physician Assistant Medical
DX: J00 Acute nasopharyngitis [common cold] (principal)
CPT/HCPCS: 87798; G0463

== ENCOUNTER → 2021-05-25 | Outpatient (CLI) | payer OTHER ==
[~2021-05-25] MED LIST changes: -ALLO100T PO; -FURO40TA2 PO; -ONDA4TAB6 PO; -OXYC10TA12 PO; -XANA1TAB2 PO
[2021-05-25 10:23] LABS: BASO % 0.5 % (0.0-1.0); EOS # 0.2 10^3/uL (0.0-0.5); EOS % 4.6 % (0.0-3.0); HEMATOCRIT 28.9 % (42.0-52.0); HEMOGLOBIN 9.6 g/dl (13.5-17.5); LYMPH # 0.8 10^3/uL (1.5-5.0); LYMPH % 21.4 % (24.0-44.0); MEAN CORPUSCULAR HEMOGLOBIN 33.6 pg (27.0-33.0); MEAN CORPUSCULAR HGB CONC 33.2 g/dl (32.0-36.5); MONO # 0.3 10^3/uL (0.0-0.8); NEUTROPHILS # 2.4 10^3/uL (1.5-8.5); NEUTROPHILS % 65.2 % (36.0-66.0); RED BLOOD COUNT 2.86 10^6/uL (4.30-6.10); WHITE BLOOD COUNT 3.7 10^3/uL (4.0-10.0)
[2021-05-25 10:24] LABS: PLATELET COUNT, AUTOMATED 71 10^3/uL (150-450)
[2021-05-25 10:56] LABS: BLOOD UREA NITROGEN 16 MG/DL (7-18); CALCIUM LEVEL 8.4 MG/DL (8.5-10.1); CARBON DIOXIDE LEVEL 26 MEQ/L (21-32); CHLORIDE LEVEL 112 MEQ/L (98-107); CREATININE FOR GFR 1.14 MG/DL (0.70-1.30); FREE T4 0.91 NG/DL (0.76-1.46); GLOMERULAR FILTRATION RATE > 60.0 (>56); GLUCOSE, FASTING 239 MG/DL (70-100); MAGNESIUM LEVEL 1.2 MG/DL (1.8-2.4); POTASSIUM SERUM 4.5 MEQ/L (3.5-5.1); SODIUM LEVEL 142 MEQ/L (136-145)
== END ==
LOC: M PLALAB 07:55
PROVIDERS: ATTEND Physician Assistant Medical
DX: N18.30 Chronic kidney disease, stage 3 unspecified (principal); D50.0 Iron deficiency anemia secondary to blood loss (chronic); K59.09 Other constipation

== ENCOUNTER 2021-06-06 10:47 | Outpatient (CLI) | payer OTHER ==
[~2021-06-06] VITALS: Ht 182.9 cm; Wt 135.7 kg
[2021-06-06] VITALS (17 sets, daily range): BP systolic 130–152; BP diastolic 60–80
[~2021-06-06 10:47] MED LIST changes: +ALBUTEROL 90 MCG/ACT 8GM HFA INHALER INH PRN; +ALBUTEROL SULFATE 2.5 MG/0.5 ML INH NEB SOLN INH PRN; +EPINEPHrine INJ 1 MG/ML 1ML AMP IM PRN; +NS 1,000 ML IV SCH; +diphenhydrAMINE 50MG/ML VIAL (J1200) IV PRN; +methylPREDNISolone 125MG 2ML VIAL IV PRN
[2021-06-06] MEDS ORDERED: ACETAMINOPHEN TAB 650MG DOSE (2X325MG) PO ONE (12:30)
[2021-06-06] MEDS ORDERED: diphenhydrAMINE 25MG CAP PO ONE (12:35)
[2021-06-06] MEDS ORDERED: ALBUTEROL 90 MCG/ACT 8GM HFA INHALER INH PRN (12:35)
[2021-06-06] MEDS ORDERED: CASIRIVIMAB/IMDEVIMAB 1,200 MG in NS 250 ML IV ONE (13:00)
[2021-06-06] MEDS ORDERED: FUROSEMIDE 40MG/4ML VIAL (J1940) IV ONE (14:30)
[2021-06-07] MEDS ORDERED: XANA1TAB2 PO (14:53)
[2021-06-07] MEDS ORDERED: ALLO100T PO (14:53)
[2021-06-07] MEDS ORDERED: OXYC10TA12 PO (14:53)
[2021-06-07] MEDS ORDERED: FURO40TA2 PO (14:53)
[2021-06-07] MEDS ORDERED: ONDA4TAB6 PO (14:53)
== END 2021-06-06 16:27 | disposition home or self-care (01) ==
LOC: M OPCLIICU 10:47 → M ICU 10:52 → M OPCLIICU 16:27
PROVIDERS: ATTEND Physician Assistant Medical
DX: U07.1 COVID-19 (principal); Z88.8 Allergy status to other drugs, medicaments and biological substances
CPT/HCPCS: J1940; M0243

== ENCOUNTER 2021-06-07 11:54 | Inpatient (IN) | payer OTHER ==
[~2021-06-07] VITALS: Ht 182.9 cm; Wt 134.0 kg
[~2021-06-07 11:54] MED LIST changes: -ALBUTEROL 90 MCG/ACT 8GM HFA INHALER INH PRN; -ALBUTEROL SULFATE 2.5 MG/0.5 ML INH NEB SOLN INH PRN; -EPINEPHrine INJ 1 MG/ML 1ML AMP IM PRN; -NS 1,000 ML IV SCH; +dexameTHASONE 4 MG/ML 1ML VIAL (J1100 PER 1MG) IV SCH; -diphenhydrAMINE 50MG/ML VIAL (J1200) IV PRN; -methylPREDNISolone 125MG 2ML VIAL IV PRN
[2021-06-07 13:05] LABS: HEMOGLOBIN 8.5 g/dl (13.5-17.5); MEAN CORPUSCULAR HEMOGLOBIN 33.5 pg (27.0-33.0); MEAN CORPUSCULAR HGB CONC 32.7 g/dl (32.0-36.5); MEAN CORPUSCULAR VOLUME 102.4 fl (80.0-96.0); RED BLOOD COUNT 2.54 10^6/uL (4.30-6.10)
[2021-06-07 13:06] LABS: PLATELET COUNT, AUTOMATED 44 10^3/uL (150-450)
--- NOTE | 2021-06-07 13:12 | REP ---
INDICATION: Coronavirus workup. COMPARISON: Comparison chest x-ray December 05, 2019. TECHNIQUE: Portable upright AP chest radiograph. FINDINGS: There are fairly extensive bilateral patchy infiltrates in the lung maxwell consistent with bilateral pneumonia. Pleural angles are sharp. Cardiomediastinal silhouette is unremarkable. EKG monitoring electrodes are seen. IMPRESSION: Extensive bilateral patchy pneumonitis. <Electronically signed by Jordy Tristan > 06/07/21 [id number]
[2021-06-07 13:16] LABS: INR 1.11; PROTHROMBIN TIME 14.8 SECONDS (12.7-14.5)
[2021-06-07 13:17] LABS: PARTIAL THROMBOPLASTIN TIME 49.7 SECONDS (25.9-37.0)
[2021-06-07 13:19] LABS: D-DIMER QUANT 2361.1 ng/ml (<500)
[2021-06-07 13:37] LABS: LYMPHOCYTES 2 % (16-44); MONOCYTES 3 % (0-5); NEUTROPHILS 92 % (28-66); PLATELET ESTIMATE MARKED DECREASE (NORMAL)
[2021-06-07 13:39] LABS: ALBUMIN 2.2 GM/DL (3.2-5.2); BILIRUBIN,TOTAL 1.7 MG/DL (0.2-1.0); C REACTIVE PROTEIN QUANTITATIV 16.4 MG/DL (0.00-0.30); CALCIUM LEVEL 7.6 MG/DL (8.5-10.1); CK-MB VALUE MASS 2.5 NG/ML (<3.6); CREATININE FOR GFR 2.22 MG/DL (0.70-1.30); MAGNESIUM LEVEL 1.2 MG/DL (1.8-2.4); MB/CK RELATIVE INDEX 1.38 (< OR =4); POTASSIUM SERUM 4.8 MEQ/L (3.5-5.1); TOTAL PROTEIN 6.9 GM/DL (6.4-8.2); TROPONIN I 0.06 NG/ML (< 0.10)
[2021-06-07] MEDS ORDERED: AZITHROMYCIN INJ 500 MG, VIAL MATE ADAPTER 1 EACH in NS 250 ML IV ONE (13:40)
[2021-06-07] MEDS ORDERED: NS IV ONE (13:40)
[2021-06-07] MEDS ORDERED: cefTRIAXone SOD 2 GM in D5W MINI-BAG PLUS 50 ML IV ONE (13:40)
[2021-06-07] MEDS ORDERED: HumuLIN R (REGULAR) INSULIN (NovoLIN R) **100U/ML** PER UNIT IV ONE (13:45)
[2021-06-07] MEDS ORDERED: MAGNESIUM OXIDE 400MG TAB (MAG-OX) PO ONE (14:20)
[2021-06-07] MEDS ORDERED: MAG SULF 1GM/100ML (MAG RUN) 1 GM in IV 1 EA IV ONE (14:20)
[2021-06-07] MEDS ORDERED: FURO40TA2 PO (14:53)
[2021-06-07] MEDS ORDERED: ONDA4TAB6 PO (14:53)
[2021-06-07] MEDS ORDERED: OXYC10TA12 PO (14:53)
[2021-06-07] MEDS ORDERED: XANA1TAB2 PO (14:53)
[2021-06-07] MEDS ORDERED: ALLO100T PO (14:53)
[2021-06-07] MEDS ORDERED: HOME MED LIST COMPLETE! XX SCH (14:55)
[2021-06-07] MEDS ORDERED: REMDESIVIR 200 MG in NS 250 ML IV ONE ×2 (15:05→18:00)
[2021-06-07] MEDS ORDERED: PROCHLORPERAZINE 5 MG TAB (S0183) PO PRN (15:10)
[2021-06-07] MEDS ORDERED: DEXTROSE 50% 50 ML SYRINGE IV PRN (15:10)
[2021-06-07] MEDS ORDERED: GLUCOSE 4GM CHEW TABLET PO PRN (15:10)
[2021-06-07] MEDS ORDERED: LOMOTIL 2.5MG/0.025MG TABLET PO PRN (15:10)
[2021-06-07] MEDS ORDERED: GLUCAGON INJ 1MG VIAL SC PRN (15:10)
--- NOTE | 2021-06-07 16:02 | HPEPDOC ---
[facility] Medical History & Physical Date of Admission Jun 07, 2021 Date of Service: Jun 07, 2021 Primary Care Physician: Isela Alfredo Attending Physician: MARTIN FOFANA DO History and Physical CHIEF COMPLAINT: Shortness of breath HISTORY OF PRESENT ILLNESS: Patient is a 56-year-old male who presents today with shortness of breath. Patient is known COVID-19 positive. Patient was at the hospital yesterday for monoclonal antibody infusion and desaturated and needed oxygen. Patient was sent home on oxygen and continued to desat and was having shortness of breath so he reported to the hospital. Patient states he has been feeling sick for the past 5 days. Patient states his is also positive for COVID-19. 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 Patient also has a history of insulin resistant diabetes and is on Humulin U-500 as well as sliding scale coverage. Patient states that he does not know he had a fever. Patient had a pulse oximeter that he was sent home with and states that it was showing r eadings as low as in the 60s. Patient reported the emergency department where the patient was found to have Covid pneumonia. Patient will require hospitalization at this time PAST MEDICAL HISTORY: 1. Type 2 diabetes insulin-dependent. 2. Anxiety. 3. GERD. 4. Heart disease 5. Carcinoid liver cancer stage IV 5. Chronic disease stage III 6. Iron deficiency anemia 7. Hyperlipidemia 8. Gout PAST SURGICAL HISTORY: 1. Heart catheterization multiple times latest being in 2007. 2. Ileotomy, cholecystectomy, appendectomy, sentinel node. 3. Endoscopies and colonoscopies. SOCIAL HISTORY: Patient denies smoking, drinking alcohol, or using illicit drugs FAMILY HISTORY: Father of heart failure, mother of heart disease and diabetes ALLERGIES: Please see below. REVIEW OF SYSTEMS: General: Patient denies fevers HEENT: Patient denies headaches Cardiovascular: Patient denies chest pain Respiratory: Patient reports shortness of breath, cough GI: Patient reports abdominal pain, nausea, vomiting, diarrhea : Patient denies increased frequency or pain with urination Extremities: Patient denies swelling or pain in extremities Neurological: Patient denies numbness or tingling in legs Skin: Patient denies any new rashes or lesions. Hematologic: Patient denies any easy bruising. Lymphatic: Patient denies any lumps lumps or bumps in neck, axilla, or groin HOME MEDICATIONS: Please see below. PHYSICAL EXAMINATION: VITAL SIGNS: Temperature 99.8, pulse 94, respiratory rate 20, blood pressure 168/91, pulse oximetry 94% 15 L via Venturi mask of an FiO2 of 50% General: Alert and oriented male patient who was sitting up in bed with nasal cannula oxygen in place when I walked in. Patient did not appear to be in any acute distress but did appear ill appearing HEENT: Normocephalic, atraumatic, moist mucous membranes. Neck: No lymphadenopathy or thyromegaly Cardiac: Regular rate and rhythm, no murmurs, normal S1, normal S2 Pulm: Clear to auscultation bilaterally. No wheezes, rhonchi, rales Abd: Nondistended, nontender to palpation, normal bowel sounds, large incisional hernia in the upper part of the abdomen Ext: No edema bilateral lower extremities Neuro: Patient was able to move all 4 extremities on command and reported equal sensation light touch in all 4 extremities. Skin: Skin of the head, neck, upper and lower extremities was examined did not show any evidence of rash or wounds. LABORATORY DATA: See below. IMAGING: Chest x-ray performed on 06/07/2021 is reported to show extensive bilateral patchy pneumonitis MICROBIOLOGY: Please see below. ASSESSMENT: 56-year-old male who initially presented to the hospital yesterday for monoclonal antibodies who was sent home on 2 L of oxygen who reports back with worsening hypoxia requiring more oxygen. . PLAN: 1. Hypoxia. This is secondary to COVID-19 pneumonia. Patient will be admitted to the PCU status at this time and will require close monitoring. Patient will be placed on high flow nasal cannula once he gets to the floor. I did encourage proning. We will continue to monitor the patient's oxygen status however, I did discuss with the patient about the progression of oxygenation. 2. COVID-19 pneumonia. Remdesivir and dexamethasone has been started. Patient does appear to have bilateral patchy infiltrates. Patient was given Rocephin and azithromycin. Procalcitonin is pending at this time. Patient was vaccinated and did receive monoclonal's yesterday 3. Type 2 diabetes, insulin-dependent, highly insulin resistant. Patient is on 40 units of Humulin U-500 and sliding scale with a MDD of 100 units/day. I am trying to track down the patient's sliding scales we can be started on this. Patient sugars were greatly elevated when the patient came to the emergency department. Patient received 10 units of IV insulin and I will give him his Humulin at this time. Patient be placed on consistent carb diet. 4. Lactic acidosis. This may be secondary to the patient's elevated blood sugars. Vital signs other than his hypoxia are within normal limits. Patient will receive fluids in the emergency department and we will recheck lactic acid in 4 hours. 5. Neuroendocrine carcinoma with metastasis to the liver. This puts the patient at high risk for deterioration of COVID-19. We will continue to monitor and patient can follow-up outpatient once he is discharged. 6. Acute kidney injury on chronic kidney disease stage III. We will continue to monitor the patient's kidneys and avoid nephrotoxic agents. Patient will receive fluid bolus and we will recheck the labs later on tonight. 7. DVT prophylaxis: Lovenox was placed in, we will need to repeat the platelets tomorrow and follow-up with this. For now teds and sequentials. 8. CODE STATUS: Patient states that he has a MOLST form which is on his refrigerator at home that states he would like to be a DO NOT RESUSCITATE and would like a trial of intubation but if he needs a trach he does not want a trach. If he gets that point and he would like to be palliatively extubated. I went over this with the patient and he agrees to this. Disposition: Patient be admitted to PCU status at this time and I do expect greater than 2 midnight stay. Patient will need to be moved to the Covid floor. Vital Signs Vital Signs Date Time Temp Pulse Resp B/P (MAP) Pulse Ox O2 Delivery O2 Flow Rate FiO2 06/07/21 15:15 99.8 94 20 168/91 (116) 94 Venturi Mask 15.0 50 Laboratory Data Labs 24H Laboratory Tests 2 06/07/21 12:30: Neutrophils (%) (Auto) , Nucleated Red Blood Cells % (auto) 0.0, Neutrophils 92H, Band Neutrophils 3, Lymphocytes (Manual) 2L, Monocytes (Manual) 3, Macrocytosis 2+, Platelet Estimate MARKED DECREASE, Immature Platelet Fraction 3.2, Prothrombin Time 14.8H, Prothromb Time International Ratio 1.11, Activated Partial Thromboplast Time 49.7H, Fibrinogen 518H, D-Dimer, Quantitative 2361.10H, Anion Gap 7L, Glomerular Filtration Rate 33.0L, Lactic Acid Level 4.5*H, Calcium Level 7.6L, Magnesium Level 1.2L, Ferritin 1558H, Total Bilirubin 1.7H, Aspartate Amino Transf (AST/SGOT) 143H, Alanine Aminotransferase (ALT/SGPT) 55, Alkaline Phosphatase 466H, Lactate Dehydrogenase 460H, Total Creatine Kinase 181, Creatine Kinase MB 2.5, Creatine Kinase MB Relative Index 1.38, Troponin I 0.06, C-Reactive Protein, Quantitative 16.40H, Total Protein 6.9, Albumin 2.2L, Albumin/Globulin Ratio 0.5 CBC/BMP Laboratory Tests 06/07/21 12:30 Microbiology Microbiology 06/07/21 Blood Culture, Received Pending 06/07/21 Blood Culture, Received Pending Home Medications Scheduled Allopurinol (Allopurinol) 100 Mg Tablet, 100 MG PO DAILY Carvedilol (Carvedilol) 6.25 Mg Tablet, 6.25 MG PO BID Dexlansoprazole (Dexilant) 60 Mg Elías.bp, 60 MG PO DAILY Furosemide (Furosemide) 40 Mg Tablet, 40 MG PO DAILY Insulin (Humulin R U-500) 500 Unit/1 Ml Vial, 40 UNITS SC BID Insulin Aspart (Novolog) 100 Unit/1 Ml Cartridge, 1 DOSE SC ASDIRECTED PER SLIDING SCALE Octreotide Acetate,Mi-Spheres (Sandostatin [place]) 30 Mg Kit, 30 MG IM every 28 days Rifaximin (Xifaxan) 550 Mg Tablet, 550 MG PO BID MORNING AND DINNER Ropinirole HCl (Ropinirole HCl) 0.25 Mg Tablet, 0.25 MG PO QPM Scheduled PRN Alprazolam (Xanax) 1 Mg Tablet, 1 MG PO DAILY PRN for ANXIETY Diphenoxylate HCl/Atropine (Lomotil 2.5-0.025 mg Tablet) 1 Each Tablet, 1 TAB PO BIDP PRN for DIARRHEA Nitroglycerin (Nitrostat) 0.4 Mg Tab.subl, 0.4 MG SL ASDIRECTED PRN for CHEST PAIN Ondansetron (Ondansetron Odt) 4 Mg Tab.rapdis, 4 MG PO Q8H PRN for NAUSEA OR VO MITING Oxycodone HCl (Oxycodone HCl) 10 Mg Tablet, 10 MG PO Q4H PRN for PAIN LEVEL 5-10 MAY TAKE 1-2 TABLETS Prochlorperazine (Prochlorperazine Maleate) 5 Mg Tablet, 5 MG PO Q6H PRN for NAUSEA Allergies Coded Allergies: paroxetine (Verified Adverse Reaction, Mild, DIARRHEA, 12/24/18) citalopram (Verified Adverse Reaction, Unknown, MIGRAINES, 12/24/18) A-FIB/CHADSVASC A-FIB History Current/History of A-Fib/PAF?: No MARTIN FOFANA DO Jun 07, 2021 16:02
[2021-06-07] MEDS ORDERED: PEN NEEDLE (USE WITH HUMULIN U-500 INSULIN PEN) XX SCH (17:00)
[2021-06-07] MEDS ORDERED: HUMULIN R U-500 KWIKPEN 500UNITS/ML 3ML SYRINGE (J1815 PER 5UNITS) SC SCH (17:00)
[2021-06-07] MEDS ORDERED: SODIUM CHLORIDE 0.9% INJ 10 ML SYR IV ONE ×2 (17:05→20:00)
[2021-06-07 17:23] VITALS: O2SAT 87
[2021-06-07 17:29] VITALS: BP 145/61
[2021-06-07] MEDS: HumaLOG INSULIN (NovoLOG) PER UNIT SC SCH (17:30)
[2021-06-07] MEDS ORDERED: HumaLOG INSULIN (NovoLOG) PER UNIT SC SCH (17:30)
[2021-06-07 18:00] VITALS: O2SAT 93
[2021-06-07] MEDS: HUMULIN R U-500 KWIKPEN 500UNITS/ML 3ML SYRINGE (J1815 PER 5UNITS) SC SCH (18:09)
[2021-06-07] MEDS: PEN NEEDLE (USE WITH HUMULIN U-500 INSULIN PEN) XX SCH (18:09)
[2021-06-07 18:45] LABS: CALCIUM LEVEL 7.3 MG/DL (8.5-10.1); CREATININE FOR GFR 2.03 MG/DL (0.70-1.30); GLOMERULAR FILTRATION RATE 36.6 (>56); POTASSIUM SERUM 4.6 MEQ/L (3.5-5.1)
[2021-06-07] MEDS: ONDANSETRON 4 MG ORAL DISINTEGRATING TAB PO PRN (19:30)
[2021-06-07 20:00] VITALS: BP 151/64
[2021-06-07 20:30] VITALS: BP 145/63
[2021-06-07] MEDS ORDERED: HUMULIN R U-500 KWIKPEN 500UNITS/ML 3ML SYRINGE (J1815 PER 5UNITS) SC ONE ×2 (20:30→22:25)
[2021-06-07] MEDS: methylPREDNISolone 40MG 1ML VIAL IV SCH (20:30)
[2021-06-07] MEDS ORDERED: PEN NEEDLE (USE WITH HUMULIN U-500 INSULIN PEN) XX ONE ×2 (20:30→22:25)
[2021-06-07] MEDS: CARVedilol 6.25 MG TAB PO SCH (20:33)
[2021-06-07] MEDS: rifAXIMin 550 MG TAB (XIFAXAN) PO SCH (20:33)
[2021-06-07] MEDS: rOPINIRole 0.25 MG TAB(REQUIP) PO SCH (20:38)
[2021-06-07] MEDS: PIPERACILLIN/TAZOBACTAM SOD 3.375 GM in D5W MINI-BAG PLUS 50 ML IV SCH (20:40)
[2021-06-07] MEDS: CHLORASEPTIC SPRAY MT PRN (22:13)
[2021-06-08] VITALS: BP 117/58
[2021-06-08] MEDS: PIPERACILLIN/TAZOBACTAM SOD 3.375 GM in D5W MINI-BAG PLUS 50 ML IV SCH ×4 (03:17→20:24)
[2021-06-08] MEDS: CHLORASEPTIC SPRAY MT PRN ×2 (03:24→05:58)
[2021-06-08 04:00] VITALS: BP 119/61
--- NOTE | 2021-06-08 06:03 | ECGEPIP ---
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
[2021-06-08 06:24] LABS: HEMOGLOBIN 7.8 g/dl (13.5-17.5); MEAN CORPUSCULAR HEMOGLOBIN 33.2 pg (27.0-33.0); MEAN CORPUSCULAR HGB CONC 33.9 g/dl (32.0-36.5); MEAN CORPUSCULAR VOLUME 97.9 fl (80.0-96.0); RED BLOOD COUNT 2.35 10^6/uL (4.30-6.10); WHITE BLOOD COUNT 3.2 10^3/uL (4.0-10.0)
[2021-06-08 06:49] LABS: PLATELET COUNT, AUTOMATED 34 10^3/uL (150-450)
[2021-06-08 06:51] LABS: LYMPHOCYTES 7 % (16-44); NEUTROPHILS 87 % (28-66); PLATELET ESTIMATE MARKED DECREASE (NORMAL)
[2021-06-08 07:05] LABS: ALBUMIN 1.9 GM/DL (3.2-5.2); BILIRUBIN,DIRECT 1.1 MG/DL (0.0-0.2); BILIRUBIN,TOTAL 1.5 MG/DL (0.2-1.0); CALCIUM LEVEL 7.6 MG/DL (8.5-10.1); CREATININE FOR GFR 1.8 MG/DL (0.70-1.30); GLOMERULAR FILTRATION RATE 42.1 (>56); MAGNESIUM LEVEL 1.4 MG/DL (1.8-2.4); TOTAL PROTEIN 6.5 GM/DL (6.4-8.2)
[2021-06-08] MEDS: HumaLOG INSULIN (NovoLOG) PER UNIT SC SCH ×3 (07:30→17:30)
[2021-06-08 08:00] VITALS: BP 107/58
[2021-06-08] MEDS: LEVEMIR (INSULIN DETEMIR) 1 UNITS/0.01ML SC SCH ×2 (08:19→20:30)
[2021-06-08] MEDS: methylPREDNISolone 40MG 1ML VIAL IV SCH (08:20)
[2021-06-08] MEDS: allopurinoL 100 MG TAB PO SCH (08:20)
[2021-06-08] MEDS: rifAXIMin 550 MG TAB (XIFAXAN) PO SCH ×2 (08:20→20:30)
[2021-06-08] MEDS: FUROSEMIDE 40 MG TAB PO SCH (08:21)
[2021-06-08] MEDS: HUMULIN R U-500 KWIKPEN 500UNITS/ML 3ML SYRINGE (J1815 PER 5UNITS) SC SCH ×2 (08:22→18:18)
[2021-06-08] MEDS: CARVedilol 6.25 MG TAB PO SCH ×2 (08:22→20:31)
[2021-06-08] MEDS: PEN NEEDLE (USE WITH HUMULIN U-500 INSULIN PEN) XX SCH ×2 (08:22→18:18)
[2021-06-08 12:00] VITALS: BP 101/56
[2021-06-08] MEDS: ENOXAPARIN 40MG/0.4ML SYRINGE (J1650 PER 10MG) SC SCH (12:17)
[2021-06-08] MEDS: oxyCODONE 5MG TAB PO PRN (12:17)
--- NOTE | 2021-06-08 13:00 | IPNPDOC ---
Text Note Date of Service The patient was seen on 06/08/21. NOTE Subjective: Patient is a 56-year-old male with a PMHx of Carcinoid liver cancer (Stage IV), IDDM2, DLP, CKD3, Anxiety, Gout, GERD who presented to the ER with complaints of shortness of breath. Patient reported that he was experiencing symptoms since 06/03. He was tested positive and went for a monoclonal antibody infusion on 06/06/2021. After receiving monoclonal antibody infusion. Patient was still noted to be hypoxic and required supplemental oxygen. Patient presented to emergency room after he reported that he was experiencing worsening shortness of breath. Patient was admitted to the hospitalist service for further evaluation and treatment Patient was seen and examined at the bedside. Currently patient reports that he is not experiencing any chest pain, palpitations or any significance of breath. However, currently is on maxed out vapotherm therapy at 40 L a minute and percent FiO2. Patient reports mostly a nonproductive cough. Denies any nausea, vomiting, abdominal pain or diarrhea. Objective: Vitals (See below) General: Lying in bed and is on FaceTime with his , appears comfortable, AAOx3 HEENT: NC, AT CVS: +S1S2 Lungs: Diminished air entry bilaterally without any auscultated evidence of crackles, wheezing, rhonchi Abdomen: Soft, ND, NT, obese Extremities: - Edema, - Calf tenderness Imaging: CXR 06/07: Extensive bilateral patchy pneumonitis. Assessment and plan: Acute hypoxic respiratory failure - likely 2/2 COVID19 pneumonia - Patient presented to the ER with worsening shortness of breath afternoon diagnosis of COVID19 - Patient reports he is vaccinated and had received monoclonal antibody infusion on 06/06/2021 - Currently patient is on Vapotherm at 40 L a minute/100% FiO2 - Auscultation reveals diminished lung sounds bilaterally - Ferritin / CRP are elevated; will follow inflammatory marker trend - PCT significantly elevated - Imaging noted above - c/w Remdesivir / Solumedrol (Day #2) - c/w Zosyn and Azithromycin (Day #2); will follow PCT trend IDDM2 - c/w ISS / U500 - Will add Levemir for better glycemic control s/p Lactic acidosis Neuroendocrine carcinoma with metastasis to the liver (Stage IV) - Will have outpatient follow-up with primary provider/oncology on discharge KRISTIE on CKD3 - Cr baseline of 1.5-1.7; Cr trending toward baseline - Renal function is improving - Will avoid nephrotoxic medications - s/p IV fluids HTN / Suspected CHF - c/w Carvedilol and Furosemide Morbid obesity - BMI of 40.1 - Complicating medical care Anxiety - c/w Alprazolam RLS - c/w Ropinirole Gout - c/w Allopurinol GERD - Will start Protonix IV DVT prophylaxis - c/w Lovenox; discussed risks and benefits with the patient - discussed bleeding risks and protection against clot formation - Patient opts to continue with Lovenox Code status: - Discussed goals of care with patient this morning - Patient wants to be DO NOT RESUSCITATE and DO NOT INTUBATE - Patient has reported that he does not want to be intubated and instead would like to go home with hospice if the time comes - I have advised the patient that there may be a logistical difficulty in getting him home if he requires a significant amount of oxygen Disposition: - Critical condition / prognosis guarded - Discussed poor prognosis with patient and his on FaceTime VS,Fishbone, I+O VS, Fishbone, I+O Laboratory Tests 06/07/21 18:02 06/08/21 06:13 Vital Signs Date Time Temp Pulse Resp B/P (MAP) Pulse Ox O2 Delivery O2 Flow Rate FiO2 06/08/21 12:17 28 101/56 90 HVNI-Vapotherm 40.0 100 06/08/21 11:00 69 06/08/21 08:00 98.9 I&O- Last 24 Hours up to 6 AM 06/08/21 05:59 Intake Total 4960 ml Output Total 950 ml Balance 4010 ml RADU GONSALVES MD Jun 08, 2021 13:00
[2021-06-08] MEDS: PANTOPRAZOLE 40MG VIAL (C9113 PER 1) IV SCH (15:13)
[2021-06-08] MEDS ORDERED: SODIUM CHLORIDE 0.9% INJ 10 ML SYR IV SCH (16:05)
[2021-06-08] MEDS: SODIUM CHLORIDE 0.9% INJ 10 ML SYR IV SCH ×2 (18:18→20:34)
[2021-06-08] MEDS: REMDESIVIR 100 MG in NS 250 ML IV SCH (18:18)
[2021-06-08 20:00] VITALS: BP 130/63
[2021-06-08] MEDS: rOPINIRole 0.25 MG TAB(REQUIP) PO SCH (20:32)
[2021-06-08] MEDS: ONDANSETRON 4 MG ORAL DISINTEGRATING TAB PO PRN (20:33)
[2021-06-09] VITALS: BP 112/54
[2021-06-09] MEDS: PIPERACILLIN/TAZOBACTAM SOD 3.375 GM in D5W MINI-BAG PLUS 50 ML IV SCH ×4 (01:56→19:52)
[2021-06-09 04:00] VITALS: BP 113/52
[2021-06-09 06:13] LABS: HEMATOCRIT 23.6 % (42.0-52.0); MEAN CORPUSCULAR HEMOGLOBIN 33.3 pg (27.0-33.0); MEAN CORPUSCULAR HGB CONC 33.9 g/dl (32.0-36.5); MEAN CORPUSCULAR VOLUME 98.3 fl (80.0-96.0); WHITE BLOOD COUNT 4.2 10^3/uL (4.0-10.0)
[2021-06-09 06:19] LABS: PLATELET COUNT, AUTOMATED 40 10^3/uL (150-450)
[2021-06-09 06:20] LABS: INR 1.25; PROTHROMBIN TIME 16.1 SECONDS (12.7-14.5)
[2021-06-09 06:21] LABS: PARTIAL THROMBOPLASTIN TIME 43.6 SECONDS (25.9-37.0)
[2021-06-09 06:34] LABS: ALBUMIN 1.9 GM/DL (3.2-5.2); BILIRUBIN,DIRECT 1.1 MG/DL (0.0-0.2); BILIRUBIN,TOTAL 1.4 MG/DL (0.2-1.0); CALCIUM LEVEL 7.6 MG/DL (8.5-10.1); CREATININE FOR GFR 1.86 MG/DL (0.70-1.30); GLOMERULAR FILTRATION RATE 40.5 (>56); MAGNESIUM LEVEL 1.6 MG/DL (1.8-2.4); POTASSIUM SERUM 4.5 MEQ/L (3.5-5.1); TROPONIN I 0.03 NG/ML (< 0.10)
[2021-06-09 06:45] LABS: HYPOCHROMASIA 1+; LYMPHOCYTES 14 % (16-44); MONOCYTES 2 % (0-5); NEUTROPHILS 84 % (28-66); PLATELET ESTIMATE DECREASED (NORMAL)
[2021-06-09] MEDS: ONDANSETRON 4 MG ORAL DISINTEGRATING TAB PO PRN (07:08)
[2021-06-09] MEDS: PEN NEEDLE (USE WITH HUMULIN U-500 INSULIN PEN) XX SCH ×2 (07:30→17:30)
[2021-06-09] MEDS: HumaLOG INSULIN (NovoLOG) PER UNIT SC SCH ×3 (07:30→21:14)
[2021-06-09 08:00] VITALS: BP 139/63
[2021-06-09] MEDS: rifAXIMin 550 MG TAB (XIFAXAN) PO SCH ×2 (09:21→21:14)
[2021-06-09] MEDS: allopurinoL 100 MG TAB PO SCH (09:22)
[2021-06-09] MEDS: CARVedilol 6.25 MG TAB PO SCH ×2 (09:22→20:34)
[2021-06-09] MEDS: FUROSEMIDE 40 MG TAB PO SCH (09:22)
[2021-06-09] MEDS: ALPRAZolam 0.5 MG TAB PO PRN (09:23)
[2021-06-09] MEDS: methylPREDNISolone 40MG 1ML VIAL IV SCH (09:23)
[2021-06-09] MEDS: ENOXAPARIN 40MG/0.4ML SYRINGE (J1650 PER 10MG) SC SCH (09:23)
[2021-06-09] MEDS: LEVEMIR (INSULIN DETEMIR) 1 UNITS/0.01ML SC SCH ×2 (09:26→21:15)
[2021-06-09] MEDS: HUMULIN R U-500 KWIKPEN 500UNITS/ML 3ML SYRINGE (J1815 PER 5UNITS) SC SCH (09:27)
--- NOTE | 2021-06-09 10:38 | IPN ---
PROGRESS NOTE DATE: 06/09/2021 SUBJECTIVE: Layton is seen in the ICU. He has COVID pneumonia, history of Stage IV carcinoid liver cancer, Type 1 diabetes, hyperlipidemia, Stage III chronic kidney disease, who made himself a DNR/DNI. During this admission he has been refusing some of his insulin injections. He would like to go home but he is still on Vapotherm and hypoxemic without enhanced oxygen delivery. He was felt to have both COVID and pneumonia as well as secondary bacterial pneumonia. His procalcitonin level was quite high on admission. He is on Zosyn and Azithromycin for the pneumonia. He did receive monoclonal antibodies on 06/06/2021, decompensated afterwards and he ended up getting admitted. OBJECTIVE: He is lying in bed. He says he feels better than yesterday. Vital signs are as listed. He is alert and conversant. Lungs have scattered rhonchi and wheezes. Heart: Regular rhythm. Abdomen is soft, obese, nontender. No peripheral edema. No rash. LABORATORY DATA: White count is 4.2, hemoglobin 8, platelets are 40. Sodium 134, potassium 4, BUN 39, creatinine 1.8, glucose 397. Ferritin is mildly improved. Repeat procalcitonin is pending. Blood sugars are in the 400 range. IMPRESSION: 1. COVID associated pneumonia. He is on Remdesivir and Dexamethasone day #3 of each. 2. Suspected secondary bacterial pneumonia on Zosyn and Azithromycin day #3. 3. Diabetes, sliding scale insulin with coverage. He is declining some of his insulin shots. 4. Metastatic endocrine carcinoma to the liver. Has abnormal liver function tests. He is a DNR/DNI. 5. Acute kidney injury, his creatinine is approaching his baseline. 6. Hypoxemia, he wants to go home. He is requiring Vapotherm. He is currently a DNR/DNI but not comfort measures. He wanted to go home and he would really have to be on comfort measures at this point unless we can get his oxygen requirements down.
[2021-06-09 12:00] VITALS: BP 115/59
[2021-06-09 13:06] LABS: HEMATOCRIT 23.3 % (42.0-52.0); MEAN CORPUSCULAR HEMOGLOBIN 33.5 pg (27.0-33.0); MEAN CORPUSCULAR HGB CONC 34.3 g/dl (32.0-36.5); MEAN CORPUSCULAR VOLUME 97.5 fl (80.0-96.0); RED BLOOD COUNT 2.39 10^6/uL (4.30-6.10); WHITE BLOOD COUNT 5.1 10^3/uL (4.0-10.0)
[2021-06-09 13:07] LABS: ABG BASE EXCESS -2.1 (-2.0-2.0); ABG HCO3 22.5 MEQ/L (22.0-26.0); ABG O2 SATURATION 93.5 % (95.0-99.0); ABG PARTIAL PRESSURE CO2 37.8 mmHg (35.0-45.0); ABG PARTIAL PRESSURE O2 69.6 mmHg (75.0-100.0); ABG STANDARD HCO3 22.6 MEQ/L (22.0-26.0); ABG TOTAL CO2 23.7 MEQ/L (22.0-29.0); ABG pH (ARTERIAL) 7.393 UNITS (7.350-7.450)
[2021-06-09 13:09] LABS: PLATELET COUNT, AUTOMATED 40 10^3/uL (150-450)
[2021-06-09 13:30] LABS: CALCIUM LEVEL 7.9 MG/DL (8.5-10.1); CREATININE FOR GFR 1.84 MG/DL (0.70-1.30); POTASSIUM SERUM 4.5 MEQ/L (3.5-5.1)
[2021-06-09] MEDS: LACTULOSE 20 GM/30 ML SYRUP UD PO SCH ×2 (14:54→21:13)
[2021-06-09] MEDS: PANTOPRAZOLE 40MG VIAL (C9113 PER 1) IV SCH (14:54)
[2021-06-09 16:00] VITALS: BP 124/62
[2021-06-09] MEDS: REMDESIVIR 100 MG in NS 250 ML IV SCH (17:51)
[2021-06-09 20:35] VITALS: BP 101/54
[2021-06-09] MEDS: rOPINIRole 0.25 MG TAB(REQUIP) PO SCH (21:13)
[2021-06-10] VITALS (7 sets, daily range): BP systolic 112–147; BP diastolic 56–85
[2021-06-10] MEDS: PIPERACILLIN/TAZOBACTAM SOD 3.375 GM in D5W MINI-BAG PLUS 50 ML IV SCH ×4 (01:34→19:51)
[2021-06-10] MEDS: ALPRAZolam 0.5 MG TAB PO PRN (05:49)
[2021-06-10] MEDS: PEN NEEDLE (USE WITH HUMULIN U-500 INSULIN PEN) XX SCH ×2 (07:30→17:09)
[2021-06-10 08:09] LABS: BASO % 0.2 % (0.0-1.0); HEMATOCRIT 23.1 % (42.0-52.0); HEMOGLOBIN 7.9 g/dl (13.5-17.5); LYMPH # 0.4 10^3/uL (1.5-5.0); LYMPH % 6.6 % (24.0-44.0); MEAN CORPUSCULAR HEMOGLOBIN 33.1 pg (27.0-33.0); MEAN CORPUSCULAR HGB CONC 34.2 g/dl (32.0-36.5); MEAN CORPUSCULAR VOLUME 96.7 fl (80.0-96.0); MONO # 0.6 10^3/uL (0.0-0.8); MONO % 8.7 % (2.0-8.0); NEUTROPHILS # 5.3 10^3/uL (1.5-8.5); NEUTROPHILS % 83.1 % (36.0-66.0); RED BLOOD COUNT 2.39 10^6/uL (4.30-6.10); WHITE BLOOD COUNT 6.3 10^3/uL (4.0-10.0)
[2021-06-10 08:16] LABS: PLATELET COUNT, AUTOMATED 44 10^3/uL (150-450)
[2021-06-10 08:33] LABS: CALCIUM LEVEL 8.2 MG/DL (8.5-10.1); CREATININE FOR GFR 2.1 MG/DL (0.70-1.30); GLOMERULAR FILTRATION RATE 35.2 (>56); MAGNESIUM LEVEL 1.7 MG/DL (1.8-2.4); POTASSIUM SERUM 4.1 MEQ/L (3.5-5.1)
[2021-06-10] MEDS: ENOXAPARIN 40MG/0.4ML SYRINGE (J1650 PER 10MG) SC SCH (09:00)
[2021-06-10] MEDS: rifAXIMin 550 MG TAB (XIFAXAN) PO SCH ×2 (09:36→19:57)
[2021-06-10] MEDS: allopurinoL 100 MG TAB PO SCH (09:37)
[2021-06-10] MEDS: CARVedilol 6.25 MG TAB PO SCH ×2 (09:37→20:01)
[2021-06-10] MEDS: HumaLOG INSULIN (NovoLOG) PER UNIT SC SCH ×4 (09:38→21:00)
[2021-06-10] MEDS: LEVEMIR (INSULIN DETEMIR) 1 UNITS/0.01ML SC SCH ×2 (09:39→20:02)
[2021-06-10] MEDS: methylPREDNISolone 40MG 1ML VIAL IV SCH (09:39)
[2021-06-10] MEDS: LACTULOSE 20 GM/30 ML SYRUP UD PO SCH ×2 (09:39→20:02)
--- NOTE | 2021-06-10 12:10 | CR.PDOC ---
General Date of Consultation: Jun 10, 2021 Referring Provider: Jad Snell MD Consultation REASON FOR CONSULTATION/CHIEF COMPLAINT: Shortness of breath. HISTORY OF PRESENT ILLNESS: This is a 56-year-old gentleman with past medical history of stage IV carcinoid liver cancer, type 2 diabetes, hyperlipidemia, gout, GERD who presented to hospital on June 08, 2021 with shortness of breath. Patient is known COVID-19 positive. He was tested about 5 days ago. He was previously in the hospital for monoclonal antibody infusion and desaturated requiring oxygen supplementation. He was sent home with oxygen and continued to experience shortness of breath despite being on oxygen supplementation. Therefore he was admitted back to the hospital for further support. Upon admission, patient has significant bilateral lower lobe infiltrates which appear to be groundglass in nature. He is receiving remdesivir and Decadron for COVID-19. He is currently on Vapotherm and not tolerating well despite being on maximal setting. Therefore he was switched to CPAP with pressure of 8. ICU was consulted for further recommendation. Of note, patient is also tested positive for COVID-19 and she is in quarantine. Currently patient is leaning toward transitioning to comfort care. PAST MEDICAL HISTORY: 1. Type 2 diabetes insulin-dependent. 2. Anxiety. 3. GERD. 4. Heart disease 5. Carcinoid liver cancer stage IV 5. Chronic disease stage III 6. Iron deficiency anemia 7. Hyperlipidemia 8. Gout PAST SURGICAL HISTORY: 1. Heart catheterization multiple times latest being in 2007. 2. Ileotomy, cholecystectomy, appendectomy, sentinel node. 3. Endoscopies and colonoscopies. SOCIAL HISTORY: Patient denies smoking, drinking alcohol, or using illicit drugs FAMILY HISTORY: Father of heart failure, mother of heart disease and diabetes ALLERGIES: Please see below. HOME MEDICATIONS: Please see below. REVIEW OF SYSTEMS: CONSTITUTIONAL: Fatigue and lethargic, denies fever, chills, weight loss. HEENT: Denies of sinusitis or sore throat. CARDIOVASCULAR: Denies of chest pain or palpitation. RESPIRATORY: Admits to shortness of breath and dry cough. Denies hemoptysis, wheezing. GENITOURINARY: Denies dysuria. MUSCULOSKELETAL: Denies arthralgia or myalgia. GASTROINTESTINAL: Denies nausea, vomiting, abdominal pain, diarrhea or blood in stool. SKIN: Denies skin rash. NEUROLOGICAL: Denies slurred speech or focal weakness/numbness. PSYCHIATRIC: Denies depression. ENDOCRINE: Denies weight change. HEMATOLOGIC/LYMPHATIC: Denies bleeding. ALLERGIC/IMMUNOLOGIC: Denies allergy. PHYSICAL EXAMINATION: VITAL SIGNS: Please see below. GENERAL APPEARANCE: Patient is chronically ill-appearing but alert and oriented x2. He is in mild distress due to respiratory distress. HEENT: JVD hard to assess. No cervical adenopathy RESPIRATORY: Bilateral coarse crackles most prominently in the lower lung field. No significant evidence of egophony CARDIOVASCULAR: Normal heart sounds with S1-S2 with no evidence of murmur. ABDOMEN: Distended but soft and nontender to deep palpation. Positive bowel sounds. Midline surgical scar. EXTREMITIES: Pitting edema up to the level of admission. No evidence of clubbing. NEUROLOGICAL: No focal finding. PSYCHIATRIC: Alert and oriented x2. LABORATORY DATA: Please see below. ASSESSMENT/PLAN: This is a 56-year-old gentleman with past medical history of stage IV carcinoid liver cancer, type 2 diabetes, hyperlipidemia, gout, GERD who presented to [facility] on June 08, 2021 with shortness of breath subsequently admitted for hypoxic respiratory failure secondary to COVID-19 ARDS. 1. COVID-19 pneumonitis. 2. ARDS. 3. Acute hypoxic respiratory failure 4. History of stage IV carcinoid liver cancer 5. Type 2 diabetes mellitus 6. Hyperlipidemia -Recommend to add Baricitinib. Lasix 40 mg x 1 today. -Continue with remdesivir and Decadron. -Alternating between Vapotherm and CPAP. -Encourage self proning if able. -It appears patient and his is leaning towards comfort care. Until they make a decision, we will have to provide all medical care except resuscitation and intubation as patient is DNR and DNI. Critical care time 50 minutes. Vital Signs/I&O Vital Signs Date Time Temp Pulse Resp B/P (MAP) Pulse Ox O2 Delivery O2 Flow Rate FiO2 06/10/21 09:55 90 HVNI-Vapotherm 40.0 100 06/10/21 09:37 78 132/74 06/10/21 04:07 97.2 22 I&O- Last 24 Hours up to 6 AM 06/10/21 06:00 Intake Total 1340 ml Output Total 950 ml Balance 390 ml Laboratory Data Labs 24H Laboratory Tests 2 06/09/21 12:15: Bedside Glucose (Misc Panel) 331H 06/09/21 12:49: Nucleated Red Blood Cells % (auto) 0.4H, Anion Gap 8, Glomerular Filtration Rate 41.0L, Calcium Level 7.9L, Ammonia 83H 06/09/21 12:56: Blood Gas Bicarbonate Standard 22.6, Arterial Blood pH 7.393, Arterial Blood Partial Pressure CO2 37.8, Arterial Blood Partial Pressure O2 69.6L, Arterial Blood Total CO2 23.7, Arterial Blood HCO3 22.5, Arterial Blood Base Excess - 2.1L, Arterial Blood Oxygen Saturation 93.5L 06/09/21 17:36: Bedside Glucose (Misc Panel) 329H 06/09/21 20:30: Bedside Glucose (Misc Panel) 360H 06/10/21 07:43: Immature Granulocyte % (Auto) 1.4, Neutrophils (%) (Auto) 83.1H, Lymphocytes (%) (Auto) 6.6L, Monocytes (%) (Auto) 8.7H, Eosinophils (%) (Auto) 0.0, Basophils (%) (Auto) 0.2, Neutrophils # (Auto) 5.3, Lymphocytes # (Auto) 0.4L, Monocytes # (Auto) 0.6, Eosinophils # (Auto) 0.0, Basophils # (Auto) 0.0, Nucleated Red Blood Cells % (auto) 0.6H, Immature Platelet Fraction 5.8, Anion Gap 8, Glomerular Filtration Rate 35.2L, Calcium Level 8.2L, Magnesium Level 1.7L CBC/BMP Laboratory Tests 06/09/21 12:49 06/10/21 07:43 Microbiology Microbiology 06/07/21 Blood Culture - Preliminary, Resulted No Growth after 48 hours. All Specime... 06/07/21 Blood Culture - Preliminary, Resulted No Growth after 48 hours. All Specime... Allergies Coded Allergies: dexamethasone (Verified Allergy, Intermediate, HIVES, 06/07/21) paroxetine (Verified Adverse Reaction, Mild, DIARRHEA, 12/24/18) citalopram (Verified Adverse Reaction, Unknown, MIGRAINES, 12/24/18) Home Medications Scheduled Allopurinol (Allopurinol) 100 Mg Tablet, 100 MG PO DAILY, (Reported) Carvedilol (Carvedilol) 6.25 Mg Tablet, 6.25 MG PO BID, (Reported) Dexlansoprazole (Dexilant) 60 Mg bp, 60 MG PO DAILY, (Reported) Furosemide (Furosemide) 40 Mg Tablet, 40 MG PO DAILY, (Reported) Insulin (Humulin R U-500) 500 Unit/1 Ml Vial, 40 UNITS SC BID, (Reported) Insulin Aspart (Novolog) 100 Unit/1 Ml Cartridge, 1 DOSE SC ASDIRECTED, (Reported) PER SLIDING SCALE PER TINO CARDENAS PCP 151-200 GIVE 10 UNITS WM [phone] GIVE 20 UNITS WM [phone] GIVE 30 UNITS WM [phone] GIVE 40 UNITS WM [phone] GIVE 50 UNITS WM [phone] GIVE 60 UNITS WM [phone] GIVE 70 UNITS WM Octreotide Acetate,Mi-Spheres (Sandostatin [place]) 30 Mg Kit, 30 MG IM every 28 days, #10 Rifaximin (Xifaxan) 550 Mg Tablet, 550 MG PO BID, (Reported) MORNING AND DINNER Ropinirole HCl (Ropinirole HCl) 0.25 Mg Tablet, 0.25 MG PO QPM, (Reported) Scheduled PRN Alprazolam (Xanax) 1 Mg Tablet, 1 MG PO DAILY PRN for ANXIETY, (Reported) Diphenoxylate HCl/Atropine (Lomotil 2.5-0.025 mg Tablet) 1 Each Tablet, 1 TAB PO BIDP PRN for DIARRHEA, #60 Nitroglycerin (Nitrostat) 0.4 Mg Tab.subl, 0.4 MG SL ASDIRECTED PRN for CHEST PAIN, (Reported) Ondansetron (Ondansetron Odt) 4 Mg Tab.rapdis, 4 MG PO Q8H PRN for NAUSEA OR VOMITING, (Reported) Oxycodone HCl (Oxycodone HCl) 10 Mg Tablet, 10 MG PO Q4H PRN for PAIN LEVEL 5- 10, (Reported) MAY TAKE 1-2 TABLETS Prochlorperazine (Prochlorperazine Maleate) 5 Mg Tablet, 5 MG PO Q6H PRN for NAUSEA for 30 Days, #30 SUZI BURNETT MD Jun 10, 2021 12:10
[2021-06-10] MEDS: PANTOPRAZOLE 40MG VIAL (C9113 PER 1) IV SCH (13:15)
--- NOTE | 2021-06-10 13:47 | IPN ---
PROGRESS NOTE DATE: 06/10/2021 SUBJECTIVE: Sinus is worse than yesterday, more hypoxemic. He is now on a CPAP mask. His mental status has declined. He has not had any bowel movements with the lactulose. He was encephalopathic yesterday with an elevated ammonia level. He is confused. His son is getting today and at times thinks he is at the wedding. His renal function is declining as well. PHYSICAL EXAMINATION: Afebrile. He is on a CPAP at 100% O2 saturation. General appearance: He is lethargic, speech is slurred and he is confused. Lungs: Diffuse rhonchi. Heart: Regular rate and rhythm. Abdomen: Soft, mildly distended. 1 trace peripheral edema. LABORATORY DATA: Creatinine is up to 2.1. White is 6.3, hemoglobin is 7.9, platelets 44. IMPRESSION/PLAN: 1. COVID pneumonia, day 4 of remdesivir and methylprednisolone. He is getting progressively worse. I will consult the police guard. The patient is DO NOT RESUSCITATE (DNR/DO NOT INTUBATE (DNR. 2. Suspected secondary bacterial pneumonia on Zosyn day #4. 3. Hepatic encephalopathy. He is on lactulose and rifaximin. 4. Acute kidney injury, creatinine is getting worse. He might need some IV fluids. If it continues in that direction, I am stopping his furosemide today. 5. Diabetes. He is on a sliding scale insulin coverage, as well as basal insulin with detemir insulin 20 units twice daily. Yesterday and today I had long telephone discussions with Layton' Rachna. She is under quarantine with documented COVID and she is off quarantine tomorrow. She wants to come visit her and take him home to and I indicated to her that he is not an appropriate patient for hospice and his oxygen requirements are so high that it would be inhumane to try to send him home when he is requiring such high flow oxygen; he would be breathless before he got to the elevator. I would like her to be able to visit him as I do think his prognosis is grime, but she is under quarantine. I will ask the nurse tile layer supervisor if there is a way that we could have her visit on a compassionate basis with the expectation that he is terminal once she comes off quarantine tomorrow.
[2021-06-10] MEDS: REMDESIVIR 100 MG in NS 250 ML IV SCH (17:09)
[2021-06-10] MEDS: SODIUM CHLORIDE 0.9% INJ 10 ML SYR IV SCH (17:11)
[2021-06-10] MEDS: LORazepam 2 MG/ML VIAL IV PRN (19:51)
[2021-06-10] MEDS: rOPINIRole 0.25 MG TAB(REQUIP) PO SCH (19:57)
[2021-06-10] MEDS: oxyCODONE 5MG TAB PO PRN (20:30)
[2021-06-10] MEDS ORDERED: LORazepam 2 MG/ML VIAL IV STA (22:39)
[2021-06-11] MEDS ORDERED: LORazepam 2 MG/ML VIAL IV STA ×2 (00:08→06:54)
--- NOTE | 2021-06-11 00:15 | IPNPDOC ---
Text Note Date of Service The patient was seen on 06/11/21. NOTE TIME OF SERVICE 1205AM #Metabolic Encephalopathy / Delirium Halie due to hypoxemia PE: agitated / anxious/ O2 sats were in the 70s on RA Despite receiving 2mg of IV Ativan a few hours ago and the presence of his in the room with him the patient was agitated, swearing and refusing to keep his BIPAP mask on. I offered his the option to transition to GR[employer]ING [employer]ING [employer] with the und erstanding that he would likely pass away but she declined that option in favor of giving him more Ativan in the hopes that it would help him relax so that we could put his PAP mask back on. I also informed her that the Ativan might suppress his respiratory drive and hasten . Given the limited options and fact that the patient's code status is DNR/DNI she elected to have us administer more Ativan with the hopes that he might allow us to put his mask back on. VS,Fishbone, I+O VS, Fishbone, I+O Laboratory Tests 06/10/21 07:43 Vital Signs Date Time Temp Pulse Resp B/P (MAP) Pulse Ox O2 Delivery O2 Flow Rate FiO2 06/10/21 20:01 100 136/77 06/10/21 20:00 97.1 17 96 HVNI-Vapotherm 40.0 90 I&O- Last 24 Hours up to 6 AM 06/11/21 06:00 Intake Total 730 ml Output Total 1875 ml Balance -1145 ml SB CORONADO MD Jun 11, 2021 00:15
[2021-06-11] MEDS: LORazepam 2 MG/ML VIAL IV PRN ×3 (01:38→13:34)
[2021-06-11] MEDS: PIPERACILLIN/TAZOBACTAM SOD 3.375 GM in D5W MINI-BAG PLUS 50 ML IV SCH ×3 (02:41→14:00)
[2021-06-11 04:00] VITALS: BP 149/87
[2021-06-11 06:15] LABS: BASO % 0.2 % (0.0-1.0); HEMATOCRIT 22.5 % (42.0-52.0); HEMOGLOBIN 7.7 g/dl (13.5-17.5); LYMPH # 0.4 10^3/uL (1.5-5.0); LYMPH % 7.8 % (24.0-44.0); MEAN CORPUSCULAR HEMOGLOBIN 33.3 pg (27.0-33.0); MEAN CORPUSCULAR HGB CONC 34.2 g/dl (32.0-36.5); MEAN CORPUSCULAR VOLUME 97.4 fl (80.0-96.0); MONO # 0.5 10^3/uL (0.0-0.8); MONO % 8.6 % (2.0-8.0); NEUTROPHILS # 4.4 10^3/uL (1.5-8.5); NEUTROPHILS % 82.3 % (36.0-66.0); PLATELET COUNT, AUTOMATED 38 10^3/uL (150-450); RED BLOOD COUNT 2.31 10^6/uL (4.30-6.10); WHITE BLOOD COUNT 5.4 10^3/uL (4.0-10.0)
[2021-06-11 06:24] LABS: INR 1.3; PARTIAL THROMBOPLASTIN TIME 31.7 SECONDS (25.9-37.0); PROTHROMBIN TIME 16.6 SECONDS (12.7-14.5)
[2021-06-11 06:49] LABS: ALBUMIN 2.1 GM/DL (3.2-5.2); BILIRUBIN,DIRECT 1.4 MG/DL (0.0-0.2); BILIRUBIN,TOTAL 2.1 MG/DL (0.2-1.0); CALCIUM LEVEL 8.2 MG/DL (8.5-10.1); CREATININE FOR GFR 2.07 MG/DL (0.70-1.30); GLOMERULAR FILTRATION RATE 35.8 (>56); MAGNESIUM LEVEL 1.7 MG/DL (1.8-2.4); POTASSIUM SERUM 4.2 MEQ/L (3.5-5.1); TOTAL PROTEIN 6.1 GM/DL (6.4-8.2); TROPONIN I 0.02 NG/ML (< 0.10)
[2021-06-11] MEDS: PEN NEEDLE (USE WITH HUMULIN U-500 INSULIN PEN) XX SCH ×2 (07:30→16:55)
[2021-06-11] MEDS: HumaLOG INSULIN (NovoLOG) PER UNIT SC SCH ×3 (07:53→16:54)
[2021-06-11 08:00] VITALS: BP 142/65
[2021-06-11] MEDS: rifAXIMin 550 MG TAB (XIFAXAN) PO SCH (09:00)
[2021-06-11] MEDS: ENOXAPARIN 40MG/0.4ML SYRINGE (J1650 PER 10MG) SC SCH (09:00)
[2021-06-11] MEDS: LEVEMIR (INSULIN DETEMIR) 1 UNITS/0.01ML SC SCH (09:00)
[2021-06-11] MEDS: allopurinoL 100 MG TAB PO SCH (09:00)
[2021-06-11] MEDS: LACTULOSE 20 GM/30 ML SYRUP UD PO SCH (09:00)
[2021-06-11] MEDS: CARVedilol 6.25 MG TAB PO SCH (09:00)
[2021-06-11] MEDS: methylPREDNISolone 40MG 1ML VIAL IV SCH (10:45)
[2021-06-11] MEDS ORDERED: REFRIGERATOR IV KEYS XX PRN (12:00)
[2021-06-11] MEDS ORDERED: EPIDURAL/PCA KEYS XX PRN (12:00)
[2021-06-11] MEDS: MORPHINE 2 MG/ML 1ML VIAL (J2270) IV PRN ×4 (12:10→22:36)
[2021-06-11] MEDS: MORPHINE SULF IN 0.9% NACL 100 MG in IV 1 EA IV SCH ×2 (12:14)
[2021-06-11] MEDS: PANTOPRAZOLE 40MG VIAL (C9113 PER 1) IV SCH (14:00)
--- NOTE | 2021-06-11 15:44 | IPN ---
PROGRESS NOTE DATE: 06/11/2021 SUBJECTIVE: Wagner was seen in the ICU. His Rachna is in the room with him. He was agitated overnight. He had to have Ativan. He was confused this morning, trying to get out of bed, difficult to re-orient, acting encephalopathic and he looks very weak. PHYSICAL EXAMINATION: His O2 saturation is 96% on BiPAP. Lungs: Scattered rhonchi, wheezes. Heart: Regular rhythm. Abdomen: Soft, mildly tender. Extremities: Trace peripheral edema. LABORATORY DATA: White count 5.4, hemoglobin 7.7, platelets 38,000. Creatinine 0.6. Ferritin 980. Bilirubin 1.4. Ammonia 56. IMPRESSION: 1. COVID pneumonia: Patient is getting progressively worse. I had a long kae discussion with Rachna. She has wanted him to go home under Hospice Care, but he was requiring such high flow oxygen that we would not be able to meet that if he were home and frankly he would suffer profound air hunger within minutes of leaving the ICU. She understands this. I did offer comfort measures with palliative care/end-of-life care in the hospital. She is going to discuss this with his children and get back to me. I do think that would be the most compassionate route. 2. Suspected bacterial pneumonia: syn day #5. 3. Hepatic encephalopathy: He has metastatic neuroendocrine tumor with liver failure. His bilirubin is slowly rising. He is on lactulose and Rifaximin despite the ammonia being improved, clinically his encephalopathy is worse. 4. Acute kidney injury: Creatinine is stable, but not at his baseline. ADDENDUM: Rachna has decided to transition to comfort measures and upon completion of this note, we will put those orders in.
[2021-06-11] MEDS: SODIUM CHLORIDE 0.9% INJ 10 ML SYR IV SCH (19:28)
[2021-06-12] MEDS ORDERED: LORazepam 2 MG/ML VIAL As Ordered ONE ×5 (04:26→20:20)
[2021-06-12] MEDS: LORazepam 2 MG/ML VIAL IV PRN ×5 (04:41→16:38)
[2021-06-12] MEDS: MORPHINE 2 MG/ML 1ML VIAL (J2270) IV PRN (04:47)
[2021-06-12] MEDS ORDERED: LORazepam 2 MG/ML VIAL IV STA ×2 (04:52→17:27)
[2021-06-12] MEDS ORDERED: HYOSCYAMINE SULFATE 0.125 MG SUBL TABLET PO PRN (05:20)
[2021-06-12] MEDS ORDERED: FLEET ENEMA PR PRN (05:20)
[2021-06-12] MEDS ORDERED: ONDANSETRON 4MG/2ML VIAL IV PRN (05:20)
[2021-06-12] MEDS ORDERED: SCOPOLAMINE 1MG TRANSDERMAL PATCH TOP PRN (05:20)
[2021-06-12] MEDS ORDERED: ATROPINE SULFATE 1% OP SOLN 2 ML BTL SL PRN (05:20)
--- NOTE | 2021-06-12 11:16 | IPN ---
PROGRESS NOTE DATE: 06/12/2021 SUBJECTIVE: Layton is on HEAD OF QUALITY status. I had a long discussion with his , Rachna, yesterday, she opted for and signed a MOLST form for comfort measures. He is on a Morphine drip with intermittent Ativan for restlessness. The nursing staff and I talked today and we clarified Morphine drip instructions. The patient's comfort goals are currently being met, probably could be transferred up to the COVID floor and get out of ICU which might make it easier or his to be with him.
[2021-06-12] MEDS ORDERED: MORPHINE SULF IN 0.9% NACL 100 MG in IV 1 EA IV SCH ×2 (11:22)
[2021-06-12] MEDS: MORPHINE SULF IN 0.9% NACL 100 MG in IV 1 EA IV SCH ×2 (16:38)
[2021-06-12] MEDS ORDERED: LORazepam 2 MG/ML VIAL IV PRN (17:30)
[2021-06-13] MEDS ORDERED: LORazepam 2 MG/ML VIAL As Ordered ONE (00:34)
[2021-06-13] MEDS: MORPHINE SULF IN 0.9% NACL 100 MG in IV 1 EA IV SCH ×4 (12:01→20:10)
--- NOTE | 2021-06-14 07:34 | DS.PDOC ---
Discharge Summary General Date of Admission Jun 07, 2021 at 15:02 Date of Discharge 06/13/21 Discharge Summary PROCEDURES PERFORMED DURING STAY: [None]. ADMITTING DIAGNOSES: Acute hypoxic respiratory failure secondary to COVID-19 pneumonia severe sepsis 2/2 covid-19 pneumonia Hyponatremia COVID-19 pneumonia Type 2 diabetes mellitus Lactic acidosis Neuroendocrine carcinoma with metastases to the liver Acute kidney injury on chronic CKD stage III DISCHARGE DIAGNOSES: Acute hypoxic respiratory failure secondary to COVID-19 pneumonia COVID-19 pneumonia severe sepsis 2/2 covid-19 pneumonia ARDS Type 2 diabetes mellitus Lactic acidosis Neuroendocrine carcinoma with metastases to the liver Acute kidney injury on chronic CKD stage III COMPLICATIONS/CHIEF COMPLAINT: Covid-19, Hypoxia. HISTORY OF PRESENT ILLNESS: Patient is a 56-year-old male who presents today with shortness of breath. Patient is known COVID-19 positive. Patient was at the hospital yesterday for monoclonal antibody infusion and desaturated and needed oxygen. Patient was sent home on oxygen and continued to desat and was having shortness of breath so he reported to the hospital. Patient states he has been feeling sick for the past 5 days. Patient states his is also positive for COVID-19. 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 Patient also has a history of insulin resistant diabetes and is on Humulin U-500 as well as sliding scale coverage. Patient states that he does not know he had a fever. Patient had a pulse oximeter that he was sent home with and states that it was showing readings as low as in the 60s. Patient reported the emergency department where the patient was found to have Covid pneumonia. Patient will require hospitalization at this time HOSPITAL COURSE: Patient presented to hospital on June 08, 2021 with shortness of breath and subsequently admitted for acute hypoxic respiratory failure secondary to COVID-19 as well as ARDS. Patient was treated with respiratory Decadron. Baricitinib was added by pulmonary and critical care medicine. Patient was oxygenated between Vapotherm and CPAP. Patient developed metabolic encephalopathy apathy, patient became more agitated and refused to keep his BiPAP mask on. This was likely complicated against a background of hepatic encephalopathy given history of active metastatic neuroendocrine tumor. Patient's decided to make the patient WIRE MILL ROVER. Ultimately the patient on 06/13/21 from covid-19 pneumonia and ARDS. DISCHARGE MEDICATIONS: Please see below. ALLERGIES: Please see below. PHYSICAL EXAMINATION ON DISCHARGE: I did not examine the patient. Patient was overnight. LABORATORY DATA: Please see below. IMAGING: Chest x-ray 06/07/2021 FINDINGS: There are fairly extensive bilateral patchy infiltrates in the lung maxwell consistent with bilateral pneumonia. Pleural angles are sharp. Cardiomediastinal silhouette is unremarkable. EKG monitoring electrodes are seen. IMPRESSION: Extensive bilateral patchy pneumonitis. DISPOSITION: 20 . TIME SPENT ON DISCHARGE: 30 minutes. Vital Signs/I&Os Vital Signs Date Time Temp Pulse Resp B/P (MAP) Pulse Ox O2 Delivery O2 Flow Rate FiO2 06/13/21 16:00 70 5 06/13/21 04:00 4.0 06/11/21 15:00 High Flow Cannula 06/11/21 13:23 79 100 06/11/21 08:00 97.6 142/65 (90) l I&O- Last 24 Hours up to 6 AM 06/14/21 06:00 Intake Total 51.7 ml Balance 51.7 ml Microbiology Microbiology 06/07/21 Blood Culture - Final, Complete NO GROWTH AFTER 5 DAYS 06/07/21 Blood Culture - Final, Complete NO GROWTH AFTER 5 DAYS Discharge Medications Scheduled Allopurinol (Allopurinol) 100 Mg Tablet, 100 MG PO DAILY, (Reported) Carvedilol (Carvedilol) 6.25 Mg Tablet, 6.25 MG PO BID, (Reported) Dexlansoprazole (Dexilant) 60 Mg bp, 60 MG PO DAILY, (Reported) Furosemide (Furosemide) 40 Mg Tablet, 40 MG PO DAILY, (Reported) Insulin (Humulin R U-500) 500 Unit/1 Ml Vial, 40 UNITS SC BID, (Reported) Insulin Aspart (Novolog) 100 Unit/1 Ml Cartridge, 1 DOSE SC ASDIRECTED, (Reported) PER SLIDING SCALE PER TINO CARDENAS PCP 151-200 GIVE 10 UNITS WM 201-250 GIVE 20 UNITS WM 251-300 GIVE 30 UNITS WM 301-350 GIVE 40 UNITS WM 351-400 GIVE 50 UNITS WM 401-450 GIVE 60 UNITS WM 451-500 GIVE 70 UNITS WM Octreotide Acetate,Mi-Spheres (Sandostatin [place]) 30 Mg Kit, 30 MG IM every 28 days Rifaximin (Xifaxan) 550 Mg Tablet, 550 MG PO BID, (Reported) MORNING AND DINNER Ropinirole HCl (Ropinirole HCl) 0.25 Mg Tablet, 0.25 MG PO QPM, (Reported) Scheduled PRN Alprazolam (Xanax) 1 Mg Tablet, 1 MG PO DAILY PRN for ANXIETY, (Reported) Diphenoxylate HCl/Atropine (Lomotil 2.5-0.025 mg Tablet) 1 Each Tablet, 1 TAB PO BIDP PRN for DIARRHEA Nitroglycerin (Nitrostat) 0.4 Mg Tab.subl, 0.4 MG SL ASDIRECTED PRN for CHEST PAIN, (Reported) Ondansetron (Ondansetron Odt) 4 Mg Tab.rapdis, 4 MG PO Q8H PRN for NAUSEA OR VOMITING, (Reported) Oxycodone HCl (Oxycodone HCl) 10 Mg Tablet, 10 MG PO Q4H PRN for PAIN LEVEL 5- 10, (Reported) MAY TAKE 1-2 TABLETS Prochlorperazine (Prochlorperazine Maleate) 5 Mg Tablet, 5 MG PO Q6H PRN for NAUSEA Allergies Coded Allergies: dexamethasone (Verified Allergy, Intermediate, HIVES, 06/07/21) paroxetine (Verified Adverse Reaction, Mild, DIARRHEA, 12/24/18) citalopram (Verified Adverse Reaction, Unknown, MIGRAINES, 12/24/18) ADIN CHOI MD Jun 14, 2021 07:34
== END 2021-06-13 20:10 | disposition expired | DRG 177 ==
LOC: EDBD 11:54 → M ED 11:54 → M ED INP 15:02 → ENRESERV 15:45 → M ICU 16:57 → M 4MAIN 06-13 18:15
PROVIDERS: ADMIT Family Medicine; ATTEND Family Medicine
PROC: 3E0333Z Introduction of Anti-inflammatory into Peripheral Vein, Percutaneous Approach (ICD-10-PCS; principal; 2021-06-07)
PROC: XW033E5 Introduction of Remdesivir Anti-infective into Peripheral Vein, Percutaneous Approach, New Technology Group 5 (ICD-10-PCS; 2021-06-07)
DX: U07.1 COVID-19 (principal); J12.82 Pneumonia due to coronavirus disease 2019; J15.9 Unspecified bacterial pneumonia; J96.01 Acute respiratory failure with hypoxia; E87.2 Acidosis; N17.9 Acute kidney failure, unspecified; Z68.41 Body mass index [BMI] 40.0-44.9, adult; C7A.012 Malignant carcinoid tumor of the ileum; C7B.8 Other secondary neuroendocrine tumors; C78.7 Secondary malignant neoplasm of liver and intrahepatic bile duct; Z66 Do not resuscitate; E11.65 Type 2 diabetes mellitus with hyperglycemia; F41.9 Anxiety disorder, unspecified; K21.9 Gastro-esophageal reflux disease without esophagitis; D50.9 Iron deficiency anemia, unspecified; E78.5 Hyperlipidemia, unspecified; M10.9 Gout, unspecified; Z90.49 Acquired absence of other specified parts of digestive tract; Z51.5 Encounter for palliative care; N18.30 Chronic kidney disease, stage 3 unspecified; Z79.899 Other long term (current) drug therapy; Z79.4 Long term (current) use of insulin; Z88.8 Allergy status to other drugs, medicaments and biological substances; I12.9 Hypertensive chronic kidney disease with stage 1 through stage 4 chronic kidney disease, or unspecified chronic kidney disease; E66.01 Morbid (severe) obesity due to excess calories; G25.81 Restless legs syndrome